=== PATIENT | male | born 1980 | race Caucasian/White ===

== ENCOUNTER 2016-12-30 02:41 | Inpatient (IN) | payer OTHER, MEDICARE ==
--- NOTE | 2016-12-30 02:51 | ER Document Report ---
ED Respiratory Problem - General Chief Complaint: Possible Overdose Stated Complaint: POSSIBLE OVERDOSE Time Seen by Provider: 12/30/16 02:45 Notes: The patient is a 36-year-old male, past medical history PTSD, anxiety, depression, presents by EMS after his friends found him unresponsive and not breathing. They he may have overdosed on something. They began CPR and EMS arrived. He received 2 mg intranasal Narcan with improvement in his mental status. During transport, his respiratory rate decreased from 12 down to 6 and he was given another 0.5 mg IV Narcan with improvement in his respiratory rate. On arrival to the emergency room, his pulse ox is 77% on room air, but the patient is wide awake and interactive. The only complaint is that he is thirsty. He is cooperative and said that he took an oxycodone earlier tonight. He denies any IV drug use, chest pain, nausea, vomiting, abdominal pain, back pain, bruise or leg swelling. Past Medical History - General Information source: Patient - Social History Smoking Status: Current Every Day Smoker Family History: Reviewed & Not Pertinent Review of Systems - Review of Systems Notes: REVIEW OF SYSTEMS: CONSTITUTIONAL: -fevers, -chills EENT: -eye pain, -difficulty swallowing, -nasal congestion CARDIOVASCULAR: -chest pain, -syncope. RESPIRATORY: -cough, +SOB GASTROINTESTINAL: -abdominal pain, - nausea, -vomiting, -diarrhea GENITOURINARY: -dysuria, -hematuria MUSCULOSKELETAL: -back pain, -neck pain SKIN: -rash or skin lesions. HEMATOLOGIC: -easy bruising or bleeding. LYMPHATIC: -swollen, enlarged glands. NEUROLOGICAL: -altered mental status or loss of consciousness, -headache, - neurologic symptoms PSYCHIATRIC: -anxiety, -depression. ALL OTHER SYSTEMS REVIEWED AND NEGATIVE. Physical Exam - Vital signs Vitals: Resp BP Pulse Ox 20 107/68 83 L 12/30/16 02:43 12/30/16 02:43 12/30/16 02:43 - Notes Notes: PHYSICAL EXAMINATION: GENERAL: In no acute distress. Mildly agitated. HEAD: Atraumatic, normocephalic. EYES: Pupils equal round and reactive to light, extraocular movements intact, sclera anicteric, conjunctiva are normal. ENT: nares patent, oropharynx clear without exudates. Moist mucous membranes. NECK: Normal range of motion, supple without lymphadenopathy LUNGS: B/L wheezing and rhonchi, RLL crackles, mildly tachypneic HEART: Tachycardic, regular rhythm ABDOMEN: Soft, nontender, normoactive bowel sounds. No guarding, no rebound. No masses appreciated. EXTREMITIES: Normal range of motion, no pitting or edema. No cyanosis. NEUROLOGICAL: Cranial nerves grossly intact. Normal speech. Normal sensory and motor exams. SKIN: Scarring over right antecubital fossa, possible track patrick. Course - Re-evaluation Re-evalutation: Patient's respiratory status improved after Narcan administered by EMS. On arrival to the ER, the patient is very hypoxic. Even on a nonrebreather with duonebs, patient's oxygen sat will not improve above 89% (no history of COPD). Pt vomiting in the ED, most likely from Narcan, so BiPap is not an option. Suspect flash pulmonary edema from Narcan administration or early aspiration pneumonia that has not developed on chest x-ray. No pneumothorax seen. Pt intubated for airway protection and for hypoxic respiratory failure, unresponsive to NRB. Will begin Clindamycin for aspiration pneumonia. 12/30/16 03:[address] Velásquez (Hospitalist) and he has accepted patient as Inpatient to ICU. - Vital Signs Vital signs: Temp Pulse Resp BP Pulse Ox 13 136/82 H 91 L 12/30/16 03:41 12/30/16 03:41 12/30/16 03:41 - Laboratory Result Diagrams: 12/30/16 02:45 12/30/16 02:45 Laboratory results interpreted by me: 12/30/16 12/30/16 12/30/16 02:45 02:45 02:45 WBC 11.0 H RDW 16.7 H Seg Neutrophils % 79.9 H Monocytes % 1.4 L Absolute Neutrophils 8.8 H Carbonic Acid 1.51 H ABG pH 7.27 L ABG pCO2 50.2 H ABG pO2 56.2 L ABG O2 Saturation 85.1 L Carbon Dioxide 20 L Glucose 221 H POC Glucose Lactic Acid Calcium 7.7 L AST 338 H ALT 137 H Creatine Kinase 449 H 12/30/16 12/30/16 02:47 03:06 WBC RDW Seg Neutrophils % Monocytes % Absolute Neutrophils Carbonic Acid ABG pH ABG pCO2 ABG pO2 ABG O2 Saturation Carbon Dioxide Glucose POC Glucose 184 H Lactic Acid 4.2 H Calcium AST ALT Creatine Kinase - Diagnostic Test Radiology reviewed: Image reviewed, Reports reviewed Radiology results interpreted by me: CXR: NAD Procedures - Intubation Orotracheal Time of Intubation: 03:49 Airway evaluation: Normal anatomy Mallampati Classification: Class 1 Medications: Etomidate, Other - Rocuronium Intubation method: Nasotracheal Blade type: Cyrus Blade size: 4 Equipment used: Glidescope ETT size: 8.0 ETT secured at: Teeth ETT secured at (cm): 24 Breath Sounds after Intubation: Equal End tidal CO2 confirmed: Yes Ventilator settings: AC Tidal volume: 500 FiO2: 100 Respirations: 14 PEEP: 8 Post Intubation Xray: Yes Intubation Complications: No complications Critical Care Note - Critical Care Note Total time excluding time spent on procedures (mins): 45 Discharge - Discharge Clinical Impression: Acute respiratory failure with hypoxia Narcotic overdose Qualifiers: Encounter type: initial encounter Injury intent: undetermined intent Qualified Code(s): T40.604A - Poisoning by unspecified narcotics, undetermined, initial encounter Condition: Serious Disposition: ADMITTED INPATIENT Admitting Provider: [facility] Admitted: ICU
[2016-12-30] MEDS ORDERED: IPRATROPIUM/ALBUTEROL 0.5-2.5 MG/3 ML AMPUL NEB ONE (02:52)
[2016-12-30 03:06] LABS: VENOUS BLOOD BASE EXCESS -3.8 mmol/L; VENOUS BLOOD HCO3 22.2 mmol/L (20-32); VENOUS BLOOD PCO2 43.5 mmHg (35-63); VENOUS BLOOD PH 7.33 (7.30-7.42)
[2016-12-30] MEDS ORDERED: ETOMIDATE INJ/PF 20 MG/10 ML SDV IV ONE ×2 (03:14→03:41)
[2016-12-30] MEDS ORDERED: PROPOFOL 100 ML IV ONE (03:15)
[2016-12-30 03:17] LABS: ABSOLUTE MONOCYTES (AUTO) 0.2 10^3/uL (0.1-1.4); ABSOLUTE NEUT (AUTO) 8.8 10^3/uL (1.7-8.2); BASOPHILS % (AUTO) 0.2 % (0-2); EOSINOPHILS % (AUTO) 0.3 % (0-6); HEMATOCRIT 47.5 % (37.9-51.0); HEMOGLOBIN 15.5 g/dL (13.5-17.0); LYMPHOCYTES % (AUTO) 18.2 % (13-45); MEAN CORPUSCULAR HGB CONC 32.6 g/dL (32.0-36.0); MEAN CORPUSCULAR VOLUME 86 fl (80-97); MONOCYTES % (AUTO) 1.4 % (3-13); RED BLOOD COUNT 5.51 10^6/uL (4.35-5.55); RED CELL DISTRIBUTION WIDTH 16.7 % (11.5-14.0); SEGMENTED NEUTROPHILS % (AUTO) 79.9 % (42-78)
[2016-12-30 03:19] LABS: ARTERIAL BLOOD BASE EXCESS -4.7 mmol/L; ARTERIAL BLOOD O2 SATURATION 85.1 % (94-98)
[2016-12-30 03:21] LABS: ALANINE AMINOTRANSFERASE 137 U/L (21-72); ALBUMIN 3.7 g/dL (3.5-5.0); ALKALINE PHOSPHATASE 116 U/L (38-126); ASPARTATE AMINO TRANSFERASE 338 U/L (17-59); BILIRUBIN,DIRECT 0.4 mg/dL (0.0-0.4); BILIRUBIN,TOTAL 0.5 mg/dL (0.2-1.3); BLOOD UREA NITROGEN 14 mg/dL (7-20); CALCIUM 7.7 mg/dL (8.4-10.2); CREATINE KINASE 449 U/L (55-170); GLUCOSE 221 mg/dL (75-110); POTASSIUM 3.8 mmol/L (3.6-5.0); TOTAL PROTEIN 6.4 g/dL (6.3-8.2)
[2016-12-30 03:29] LABS: ANION GAP 19 (5-19); CARBON DIOXIDE 20 mmol/L (22-30); CHLORIDE 105 mmol/L (98-107); SODIUM 144.3 mmol/L (137-145)
[2016-12-30] MEDS ORDERED: NORMAL SALINE 1000 ML 1,000 ML IV ONE ×3 (03:40→09:07)
[2016-12-30] MEDS ORDERED: ROCURONIUM BROMIDE INJ 50 MG/5 ML VIAL IV ONE ×2 (03:41→20:16)
[2016-12-30] MEDS ORDERED: PROPOFOL 100 ML IV PRN ×2 (03:41→17:04)
--- NOTE | 2016-12-30 03:53 | RADIOLOGY REPORT (SQ) ---
EXAM DESCRIPTION: CHEST SINGLE VIEW COMPLETED DATE/TIME: 12/30/2016 3:29 am REASON FOR STUDY: hypoxia, SOB COMPARISON: None. EXAM PARAMETERS: NUMBER OF VIEWS: One view. TECHNIQUE: Single frontal radiographic view of the chest acquired. RADIATION DOSE: NA LIMITATIONS: None. FINDINGS: LUNGS AND PLEURA: No opacities, masses or pneumothorax. No pleural effusion. MEDIASTINUM AND HILAR STRUCTURES: No masses. Contour normal. HEART AND VASCULAR STRUCTURES: Heart normal in size. Normal vasculature. BONES: No acute findings. HARDWARE: None in the chest. OTHER: No other significant finding. IMPRESSION: NO ACUTE RADIOGRAPHIC FINDING IN THE CHEST. TECHNICAL DOCUMENTATION: JOB ID: [id number]
[2016-12-30] MEDS ORDERED: CLINDAMYCIN 600 MG/D5W RTU 50 ML IV ONE (03:56)
[2016-12-30 03:57] LABS: ADD ON TESTING BLD IN LAB ACKNOWLEDGE
[2016-12-30] MEDS ORDERED: FENTANYL CITRATE INJ/PF 100 MCG/2 ML AMPUL IV PRN ×2 (04:01→07:09)
[2016-12-30] MEDS ORDERED: IPRATROPIUM/ALBUTEROL 0.5-2.5 MG/3 ML AMPUL NEB PRN (04:01)
[2016-12-30] MEDS ORDERED: ONDANSETRON HCL INJ/PF 4 MG/2 ML SDV IV PRN (04:01)
[2016-12-30 04:19] LABS: ALCOHOL 267 mg/dL (NONE DETECTED)
--- NOTE | 2016-12-30 04:35 | RADIOLOGY REPORT (SQ) ---
EXAM DESCRIPTION: CHEST SINGLE VIEW COMPLETED DATE/TIME: 12/30/2016 4:15 am REASON FOR STUDY: intubated COMPARISON: 12/30/2016. EXAM PARAMETERS: NUMBER OF VIEWS: One view. TECHNIQUE: Single frontal radiographic view of the chest acquired. RADIATION DOSE: NA LIMITATIONS: As below. FINDINGS: LUNGS AND PLEURA: New large opacification of the right mid and lower lung field compared w ith exam from 40 minutes ago. Deep left costophrenic sulcus partially clipped. MEDIASTINUM AND HILAR STRUCTURES: No masses. Contour normal. HEART AND VASCULAR STRUCTURES: Heart normal in size. Normal vasculature. BONES: No acute findings. HARDWARE: Adequate appearing endotracheal tube tip is 4.7 cm from the will. NG tube tip is likely adequate partially imaged, obscured over the left upper abdominal quadrant -stomach. OTHER: No other significant finding. IMPRESSION: Large airspace opacification of the right mid-lower lung field new compared with exam fr om 40 minutes ago. Differential diagnosis includes pulmonary edema, and pulmonary hemorrhage. COMMENT: This report was called to Dr. Devorah Trent at04:25 on 12/30/2016. TECHNICAL DOCUMENTATION: JOB ID: [id number]
--- NOTE | 2016-12-30 04:40 | PDOC H&P ---
History of Present Illness Patient complains of: Altered mental status History of Present Illness: CYRUS EPPERSON is a 36 year old male whose history is obtained by the medical record and ER personnel the patient is intubated and nonresponsive. History includes PTSD, anxiety depression. Patient was discovered by his friends unresponsive and not breathing for an unclear duration CPR was initiated and EMS was called. At the scene he was spontaneous breathing and pulse though suspected to have overdosed on a narcotic receiving Narcan 2 mg intranasally with improvement of mental status. During transport he had a reduction in his respiratory rate to 6 and received another dose of Narcan IV. Emergency room is found to have a pulse oximetry of 77% on room air at which time he began to vomit aspiration followed by acute respiratory failure he was intubated. Lab results pending is referred to the hospitalist for ICU admission. There is no family or friends available for additional history. NG tube aspirate dark concerning for blood Past Medical History Psychiatric Medical History: Reports: Depression, General Anxiety Disorder, Post Traumatic Stress Disorder Social History Information Source: Emergency Med Personnel, [facility] Records Smoking Status: Current Every Day Smoker Family History Family History: Reviewed & Not Pertinent, Other - Obtainable Parental Family History Reviewed: Yes - Unobtainable Children Family History Reviewed: Yes - Unobtainable Sibling(s) Family History Reviewed.: Yes - Unobtainable Review of Systems ROS unobtainable: Due to mental status - Intubated and sedated Physical Exam Vital Signs: Temp Pulse Resp BP Pulse Ox 13 136/82 H 96 12/30/16 03:41 12/30/16 03:41 12/30/16 04:01 General appearance: PRESENT: no acute distress - Intubated and sedated appearing comfortable with current vent settings, other - NG aspiration of dark material concerning for blood Head exam: PRESENT: atraumatic, normocephalic Eye exam: PRESENT: conjunctiva pink, EOMI, PERRLA, other - Pupils 2 mm symmetric and poorly reactive. ABSENT: scleral icterus Ear exam: PRESENT: normal external ear exam Mouth exam: PRESENT: moist, tongue midline Neck exam: ABSENT: carotid bruit, JVD, lymphadenopathy, thyromegaly Respiratory exam: PRESENT: clear to auscultation mary ann. ABSENT: rales, rhonchi, wheezes Cardiovascular exam: PRESENT: RRR. ABSENT: diastolic murmur, rubs, systolic murmur Pulses: PRESENT: normal dorsalis pedis pul Vascular exam: PRESENT: normal capillary refill GI/Abdominal exam: PRESENT: normal bowel sounds, soft. ABSENT: distended, guarding, mass, organolmegaly, rebound, tenderness Rectal exam: PRESENT: deferred Extremities exam: PRESENT: full ROM. ABSENT: calf tenderness, clubbing, pedal edema Neurological exam: PRESENT: alert - Sedated and intubated Skin exam: PRESENT: dry, intact, warm. ABSENT: cyanosis, rash Results Laboratory Results: 12/30/16 02:45 12/30/16 02:45 12/30/16 12/30/16 12/30/16 02:45 02:45 02:45 WBC 11.0 H RBC 5.51 Hgb 15.5 Hct 47.5 MCV 86 MCH 28.0 MCHC 32.6 RDW 16.7 H Plt Count 231 Seg Neutrophils % 79.9 H Lymphocytes % 18.2 Monocytes % 1.4 L Eosinophils % 0.3 Basophils % 0.2 Absolute Neutrophils 8.8 H Absolute Lymphocytes 2.0 Absolute Monocytes 0.2 Absolute Eosinophils 0.0 Absolute Basophils 0.0 Carbonic Acid HCO3/H2CO3 Ratio ABG pH ABG pCO2 ABG pO2 ABG HCO3 ABG O2 Saturation ABG Base Excess VBG pH 7.33 VBG pCO2 43.5 VBG HCO3 22.2 VBG Base Excess -3.8 FiO2 Sodium 144.3 Potassium 3.8 Chloride 105 Carbon Dioxide 20 L Anion Gap 19 BUN 14 Creatinine 1.00 Est GFR ( Amer) > 60 Est GFR (Non-Af Amer) > 60 Glucose 221 H Lactic Acid Calcium 7.7 L Total Bilirubin 0.5 AST 338 H ALT 137 H Alkaline Phosphatase 116 Total Protein 6.4 Albumin 3.7 Lipase 241.0 12/30/16 12/30/16 02:45 03:06 WBC RBC Hgb Hct MCV MCH MCHC RDW Plt Count Seg Neutrophils % Lymphocytes % Monocytes % Eosinophils % Basophils % Absolute Neutrophils Absolute Lymphocytes Absolute Monocytes Absolute Eosinophils Absolute Basophils Carbonic Acid 1.51 H HCO3/H2CO3 Ratio 14:1 ABG pH 7.27 L ABG pCO2 50.2 H ABG pO2 56.2 L ABG HCO3 22.6 ABG O2 Saturation 85.1 L ABG Base Excess -4.7 VBG pH VBG pCO2 VBG HCO3 VBG Base Excess FiO2 6 LITERS Sodium Potassium Chloride Carbon Dioxide Anion Gap BUN Creatinine Est GFR ( Amer) Est GFR (Non-Af Amer) Glucose Lactic Acid 4.2 H Calcium Total Bilirubin AST ALT Alkaline Phosphatase Total Protein Albumin Lipase 12/30/16 12/30/16 02:45 02:45 Creatine Kinase 449 H Troponin I < 0.012 Assessment & Plan - Diagnosis (1) Acute respiratory failure with hypoxia Is this a current diagnosis for this admission?: YesPlan: Multifactorial secondary to pulmonary edema from opiate overdose and and, aspiration pneumonia. Continue ventilator support. Reevaluate with ABG and chemistry. Consider diuresis. Empiric antibiotics initiated. Reevaluate chest x-ray for large volume aspiration and possible atelectasis. (2) Aspiration pneumonia Is this a current diagnosis for this admission?: YesPlan: Please see #1 (3) Gastritis with hemorrhage Plan: Suspected given color of NG aspirate. Protonix 80 mg bolus ordered followed by 72 hours reevaluate CBC and PT/INR (4) Narcotic overdose Qualifiers: Encounter type: initial encounter Injury intent: undetermined intent Qualified Code(s): T40.604A - Poisoning by unspecified narcotics, undetermined, initial encounter Is this a current diagnosis for this admission?: YesPlan: IV Narcan as needed, IVC papers filed with mental health follow-up. - Time Time Spent: 50 to 70 Minutes - Inpatient Certification Medical Necessity: Need Close Monitoring Due to Risk of Patient Decompensation
[2016-12-30] MEDS ORDERED: POTASSI CL 20 MEQ/1/2NS 1L 20 MEQ/1,000 ML RTUINJ IV PRN (04:45)
[2016-12-30 04:56] LABS: PROTHROMBIN TIME 13.8 SEC (11.4-15.4)
[2016-12-30] MEDS ORDERED: CALCIUM GLUCONATE 1,000 MG in DEXTROSE 5%-WATER 50 ML IV ONE (05:30)
[2016-12-30] MEDS ORDERED: CALCIUM GLUCONATE 1000 MG/10 ML INJ IV PRN (05:30)
[2016-12-30] MEDS ORDERED: NORMAL SALINE 100 ML with PANTOPRAZOLE SODIUM 80 MG IV PRN ×2 (05:44)
[2016-12-30 05:50] LABS: ARTERIAL BLOOD BASE EXCESS -3.4 mmol/L; ARTERIAL BLOOD O2 SATURATION 99.4 % (94-98)
[2016-12-30 05:51] LABS: URINE BARBITURATES SCREEN NEGATIVE; URINE METHADONE SCREEN NEGATIVE; URINE OPIATES LOW UNCONFIRMED POSITIVE; URINE PHENCYCLIDINE SCREEN NEGATIVE
[2016-12-30] MEDS ORDERED: PANTOPRAZOLE SODIUM 40 MG VIAL IV PRN ×2 (06:00)
[2016-12-30] MEDS ORDERED: HEPARIN SOD (PORCINE) 5,000 UNIT/ML 1 ML SYRINGE SUBCUT SCH (06:00)
[2016-12-30] MEDS ORDERED: PANTOPRAZOLE SODIUM 80 MG in NORMAL SALINE 100 ML IV ONE (06:00)
[2016-12-30] MEDS: PROPOFOL 100 ML IV PRN ×5 (07:00→23:31)
--- NOTE | 2016-12-30 08:02 | RADIOLOGY REPORT (SQ) ---
EXAM DESCRIPTION: CHEST SINGLE VIEW COMPLETED DATE/TIME: 12/30/2016 7:39 am REASON FOR STUDY: intubated w aspiration and edema? COMPARISON: 3.3 hours prior. EXAM PARAMETERS: NUMBER OF VIEWS: One view. TECHNIQUE: Single frontal radiographic view of the chest acquired. RADIATION DOSE: NA LIMITATIONS: None. FINDINGS: LUNGS AND PLEURA: Moderate mixed interstitial and airspace opacity with right lower hemith oracic predominance consistent with asymmetric pulmonary edema, somewhat improved compared with exam from 3.3 hours prior. Moderate lung volume. MEDIASTINUM AND HILAR STRUCTURES: No masses. Contour normal. HEART AND VASCULAR STRUCTURES: Heart normal in size. Normal vasculature. BONES: No acute findings. HARDWARE: Adequate appearing endotracheal and nasogastric tubes. OTHER: No other significant finding. IMPRESSION: Moderate pulmonary edema pattern, right more than left improved. Lines and tubes. TECHNICAL DOCUMENTATION: JOB ID: [id number]
[2016-12-30] MEDS: IPRATROPIUM/ALBUTEROL 0.5-2.5 MG/3 ML AMPUL NEB SCH ×3 (08:38→20:14)
[2016-12-30] MEDS ORDERED: LEVALBUTEROL HCL NEB 1.25 MG/3 ML AMPUL NEB PRN (08:46)
[2016-12-30] MEDS: PIPERACILLIN SODIUM/TAZOBACTAM 4.5 GM in NORMAL SALINE 100 ML IV SCH ×3 (08:54→20:11)
[2016-12-30 09:01] LABS: ARTERIAL BLOOD BASE EXCESS -4.1 mmol/L; ARTERIAL BLOOD O2 SATURATION 96.6 % (94-98)
[2016-12-30 09:19] LABS: ALANINE AMINOTRANSFERASE 114 U/L (21-72); ALBUMIN 3.2 g/dL (3.5-5.0); ALKALINE PHOSPHATASE 99 U/L (38-126); ANION GAP 15 (5-19); ASPARTATE AMINO TRANSFERASE 378 U/L (17-59); BILIRUBIN,DIRECT 0.3 mg/dL (0.0-0.4); BILIRUBIN,TOTAL 0.5 mg/dL (0.2-1.3); BLOOD UREA NITROGEN 16 mg/dL (7-20); CALCIUM 7.3 mg/dL (8.4-10.2); CARBON DIOXIDE 23 mmol/L (22-30); CHLORIDE 107 mmol/L (98-107); CREATININE RESULT 0.96 mg/dL (0.52-1.25); GLUCOSE 88 mg/dL (75-110); MAGNESIUM 1.5 mg/dL (1.6-2.3); POTASSIUM 4.6 mmol/L (3.6-5.0); TOTAL PROTEIN 5.8 g/dL (6.3-8.2)
[2016-12-30] MEDS ORDERED: DEXTROSE 50%-WATER 25 GM/50 ML DISP.SYRIN IV PRN ×2 (09:19)
[2016-12-30] MEDS ORDERED: DEXTROSE 40% GEL 15 GM TUBE PO PRN ×2 (09:19)
[2016-12-30] MEDS ORDERED: INSULIN LISPRO 100 UNIT/ML 3 ML VIAL SUBCUT PRN (09:19)
[2016-12-30] MEDS ORDERED: GLUCAGON,HUMAN RECOMB 1 MG INJ IM PRN (09:19)
[2016-12-30 09:22] LABS: CREATINE KINASE MB 4.09 ng/mL (<4.55)
[2016-12-30 09:24] LABS: TROPONIN I < 0.012 ng/mL
[2016-12-30] MEDS ORDERED: ACETYLCYSTEINE 20% SOLN 800 MG/4 ML VIAL.NEB NEB PRN (09:30)
--- NOTE | 2016-12-30 09:37 | EKG REPORT ---
SEVERITY:- OTHERWISE NORMAL ECG - SINUS TACHYCARDIA LEFT AXIS DEVIATION : Confirmed by: Blade Goel 30-Dec-2016 09:36:08
--- NOTE | 2016-12-30 09:38 | PDOC PROGRESS REPORT ---
Subjective Progress Note for:: 12/30/16 Subjective:: Unable to obtain review of systems secondary to intubated and sedated status Physical Exam Vital Signs: Temp Pulse Resp BP Pulse Ox 96.4 F L 98 14 117/89 H 94 12/30/16 07:42 12/30/16 07:00 12/30/16 07:42 12/30/16 07:42 12/30/16 07:42 Intake & Output 12/29/16 12/30/16 12/31/16 06:59 06:59 06:59 Output Total 450 Balance -450 Weight 80.8 kg Exam: GENERAL: intubated, sedated, NAD HEENT: Conjunctiva clear, nonicteric, moist mucous membranes, no JVD, midline trachea RESPIRATORY: rhonchi bilaterally CARDIAC: Regular rate and rhythm, no murmurs/gallops/rubs ABDOMEN: Soft, nondistended, absent bowel sounds, no rigidity EXTREMETIES: No cyanosis, clubbing, edema NEUROLOGIC: unable to assess SKIN: No rashes or lesions Results Laboratory Results: 12/30/16 12/30/16 12/30/16 05:40 06:45 08:45 Carbonic Acid 1.92 H 1.44 H HCO3/H2CO3 Ratio 13:1 15:1 ABG pH 7.23 L 7.30 L ABG pCO2 63.9 H 47.7 H ABG pO2 239.9 H 96.7 ABG HCO3 25.9 22.7 ABG O2 Saturation 99.4 H 96.6 ABG Base Excess -3.4 -4.1 FiO2 100% 50% Lactic Acid 3.2 H 12/30/16 12/30/16 06:48 06:48 Creatine Kinase 449 H CK-MB (CK-2) Cancelled Troponin I Cancelled Impressions: Chest X-Ray 12/30/16 03:41 IMPRESSION: Large airspace opacification of the right mid-lower lung field new compared with exam from 40 minutes ago. Differential diagnosis includes pulmonary edema, and pulmonary hemorrhage. Assessment & Plan - Diagnosis (1) Acute respiratory failure with hypoxia Is this a current diagnosis for this admission?: YesPlan: Consult pulmonary medicine for ventilator management. Feel patient's FiO2 requirements may be less if he were to have bronchoscopy patient apparently vomited significantly in the emergency department requiring immediate intubation. (2) Aspiration pneumonia Qualifiers: Laterality: right Lung location: lower lobe of lung Is this a current diagnosis for this admission?: YesPlan: Significant aspiration pneumonia secondary to vomitus. Place patient on Zosyn and obtain a sputum specimen. Patient may benefit from bronchoscopy and will consult pulmonary medicine for this. Chest physiotherapy, Mucinex, and scheduled nebulized treatments. As needed Xopenex. (3) Narcotic overdose Qualifiers: Encounter type: initial encounter Injury intent: undetermined intent Qualified Code(s): T40.604A - Poisoning by unspecified narcotics, undetermined, initial encounter Is this a current diagnosis for this admission?: YesPlan: Continue supportive care. Patient received CPR. Will follow cardiac enzymes and EKG. (4) Alcohol intoxication Qualifiers: Complication of substance-induced condition: with unspecified complication Qualified Code(s): F10.929 - Alcohol use, unspecified with intoxication , unspecified Is this a current diagnosis for this admission?: YesPlan: Patient on Versed drip. Continue supportive care (5) Alcohol abuse Is this a current diagnosis for this admission?: YesPlan: Place patient on thiamine, folic acid, and multivitamin. Ativan as needed withdrawal. Patient is on Versed drip for sedation. (6) Gastritis with hemorrhage Qualifiers: Gastritis type: alcoholic Chronicity: acute Qualified Code(s): K29.21 - Alcoholic gastritis with bleeding Is this a current diagnosis for this admission?: YesPlan: With an dark and bloody contents through NG. Place patient on Protonix and Carafate and consider also octreotide. Consult GI and if unavailable will consult surgery for endoscopy. type and Screen and monitor CBC every 6. (7) Metabolic acidosis Is this a current diagnosis for this admission?: YesPlan: Secondary to lactic acidosis and respiratory acidosis 2/2 overdose and subsequent CPR. (8) Blood glucose elevated Is this a current diagnosis for this admission?: YesPlan: Patient on Accu-Cheks every 6 and sliding scale insulin. Check hemoglobin A1c. - Time Time Spent with patient: 45 minutes spent with patient. Critical Time spent with patient: 35 or more minutes
[2016-12-30] MEDS: LORAZEPAM INJ 2 MG/1 ML VIAL IV PRN ×4 (09:59→22:33)
[2016-12-30] MEDS ORDERED: DOCUSATE SODIUM 100 MG/10 ML UDC NG SCH (10:00)
[2016-12-30 10:07] LABS: HEMATOCRIT 44.4 % (37.9-51.0); HEMOGLOBIN 14.5 g/dL (13.5-17.0); HGB HCT DIFFERENCE -0.9; MEAN CORPUSCULAR HEMOGLOBIN 28.6 pg (27.0-33.4); MEAN CORPUSCULAR HGB CONC 32.7 g/dL (32.0-36.0); MEAN CORPUSCULAR VOLUME 87 fl (80-97); RED BLOOD COUNT 5.09 10^6/uL (4.35-5.55); RED CELL DISTRIBUTION WIDTH 16.4 % (11.5-14.0); WHITE BLOOD COUNT 7.4 10^3/uL (4.0-10.5)
[2016-12-30] MEDS: MIDAZOLAM HCL 100 ML IV PRN ×2 (10:23→16:08)
[2016-12-30] MEDS: THIAMINE HCL 100 MG, FOLIC ACID 1 MG in NORMAL SALINE 50 ML IV SCH (10:24)
[2016-12-30] MEDS: LACTULOSE SYRUP 20 GM/30 ML UDCUP NG SCH ×2 (10:32→14:36)
[2016-12-30] MEDS: NORMAL SALINE 100 ML with PANTOPRAZOLE SODIUM 80 MG IV PRN ×4 (10:33→18:39)
[2016-12-30 10:44] LABS: BAND NEUTROPHILS % (MANUAL) 4 % (3-5); BASOPHILS % (MANUAL) 0 % (0-2); EOSINOPHILS % (MANUAL) 0 % (0-6); LYMPHOCYTES % (MANUAL) 8 % (13-45); TOTAL CELLS COUNTED 100
[2016-12-30 10:45] LABS: PLATELET CLUMPS PRESENT; TOXIC GRANULATION SLIGHT; TOXIC VACUOLATION PRESENT
[2016-12-30 10:46] LABS: ANISOCYTOSIS 1+; POLYCHROMASIA SLIGHT
[2016-12-30] MEDS ORDERED: ACETAMINOPHEN 650 MG SUPP.RECT PR PRN (10:55)
--- NOTE | 2016-12-30 11:38 | PDOC CONSULTATION ---
Consultation Consult Date: 12/30/16 Attending physician:: KELLY NAIR History of Present Illness Admission Date/PCP: 12/30/16 04:01 History of Present Illness: CYRUS EPPERSON is a 36 year old male whose history is obtained by the medical record and ER personnel the patient is intubated and nonresponsive. History includes PTSD, anxiety depression. Patient was discovered by his friends unresponsive and not breathing for an unclear duration CPR was initiated and EMS was called. At the scene he was spontaneous breathing and pulse though suspected to have overdosed on a narcotic receiving Narcan 2 mg intranasally with improvement of mental status. During transport he had a reduction in his respiratory rate to 6 and received another dose of Narcan IV. Emergency room is found to have a pulse oximetry of 77% on room air at which time he began to vomit aspiration followed by acute respiratory failure he was intubated. Lab results pending is referred to the hospitalist for ICU admission. There is no family or friends available for additional history. NG tube aspirate dark concerning for blood.; At this time aspirate attempts from the endotracheal tube are nonproductive,Chest x-ray shows right lower lobe infiltrate Past Medical History Psychiatric Medical History: Reports: Depression, General Anxiety Disorder, Post Traumatic Stress Disorder Social History Smoking Status: Current Every Day Smoker Frequency of Alcohol Use: Heavy Hx Recreational Drug Use: Yes Drugs: None, Other Hx Prescription Drug Abuse: Yes Family History Family History: Reviewed & Not Pertinent, Other - Obtainable Parental Family History Reviewed: No Children Family History Reviewed: No Sibling(s) Family History Reviewed.: No Medication/Allergy Home Medications: Unobtainable [Unobtainable] 12/30/16 Allergies/Adverse Reactions: No Known Allergies Allergy (Unverified 12/30/16 05:11) Review of Systems ROS unobtainable: Due to endotracheal tube Physical Exam Vital Signs: Temp Pulse Resp BP Pulse Ox 96.4 F L 98 14 117/89 H 94 12/30/16 07:42 12/30/16 07:00 12/30/16 07:42 12/30/16 07:42 12/30/16 07:42 Intake & Output 12/29/16 12/30/16 12/31/16 06:59 06:59 06:59 Output Total 450 Balance -450 Weight 80.8 kg General appearance: PRESENT: no acute distress, disheveled, obese, well- developed Head exam: PRESENT: atraumatic, normocephalic Eye exam: PRESENT: conjunctiva pale Mouth exam: PRESENT: dry mucosa, neck supple, other - Endotracheal tube in place Neck exam: ABSENT: carotid bruit, JVD, lymphadenopathy, thyromegaly Respiratory exam: PRESENT: decreased breath sounds, prolonged expiratory phas, rales, rhonchi - Right lateral and posterior chest lozoya Cardiovascular exam: PRESENT: RRR, +S1, +S2 Pulses: PRESENT: normal radial pulses GI/Abdominal exam: PRESENT: normal bowel sounds, soft. ABSENT: distended, guarding, mass, organolmegaly, rebound, tenderness Rectal exam: PRESENT: deferred Gentrourinary exam: PRESENT: indwelling catheter Musculoskeletal exam: PRESENT: normal inspection Skin exam: PRESENT: dry, warm Results Laboratory Results: 12/30/16 12/30/16 12/30/16 05:40 06:45 08:45 Carbonic Acid 1.92 H 1.44 H HCO3/H2CO3 Ratio 13:1 15:1 ABG pH 7.23 L 7.30 L ABG pCO2 63.9 H 47.7 H ABG pO2 239.9 H 96.7 ABG HCO3 25.9 22.7 ABG O2 Saturation 99.4 H 96.6 ABG Base Excess -3.4 -4.1 FiO2 100% 50% Lactic Acid 3.2 H 12/30/16 12/30/16 06:48 06:48 Creatine Kinase 449 H CK-MB (CK-2) Cancelled Troponin I Cancelled Impressions: Chest X-Ray 12/30/16 03:41 IMPRESSION: Large airspace opacification of the right mid-lower lung field new compared with exam from 40 minutes ago. Differential diagnosis includes pulmonary edema, and pulmonary hemorrhage. Assessment & Plan - Diagnosis (1) Acute respiratory failure with hypoxia Is this a current diagnosis for this admission?: Yes (2) Alcohol abuse Is this a current diagnosis for this admission?: Yes (3) Aspiration pneumonia Qualifiers: Laterality: right Lung location: lower lobe of lung Is this a current diagnosis for this admission?: Yes (4) Gastritis with hemorrhage Qualifiers: Gastritis type: alcoholic Chronicity: acute Qualified Code(s): K29.21 - Alcoholic gastritis with bleeding Is this a current diagnosis for this admission?: Yes (5) Narcotic overdose Qualifiers: Encounter type: initial encounter Injury intent: undetermined intent Qualified Code(s): T40.604A - Poisoning by unspecified narcotics, undetermined, initial encounter Is this a current diagnosis for this admission?: Yes
[2016-12-30] MEDS ORDERED: VASOPRESSIN INJ 20 UNIT/1 ML VIAL ONE (12:37)
[2016-12-30] MEDS ORDERED: DEXTROSE 5%-WATER 250 ML with VASOPRESSIN 100 UNIT IV PRN ×2 (13:00)
[2016-12-30] MEDS ORDERED: ONDANSETRON HCL INJ/PF 4 MG/2 ML SDV ONE (13:11)
[2016-12-30] MEDS ORDERED: MIDAZOLAM 2 MG/2 ML INJ ONE ×2 (13:12→13:13)
[2016-12-30] MEDS ORDERED: NALOXONE HCL INJ/PF 0.4 MG/1 ML SDV ONE (13:12)
[2016-12-30] MEDS ORDERED: FLUMAZENIL INJ 0.5 MG/5 ML VIAL IV ONE (13:13)
[2016-12-30] MEDS ORDERED: FENTANYL CITRATE INJ/PF 100 MCG/2 ML AMPUL ONE (13:13)
[2016-12-30] MEDS ORDERED: EPINEPHRINE INJ 1 MG/10 ML DISP.SYRIN ONE (13:13)
[2016-12-30] MEDS ORDERED: GLUCAGON,HUMAN RECOMB 1 MG INJ ONE (13:13)
--- NOTE | 2016-12-30 13:41 | RADIOLOGY REPORT (SQ) ---
EXAM DESCRIPTION: CHEST SINGLE VIEW COMPLETED DATE/TIME: 12/30/2016 1:28 pm REASON FOR STUDY: CENTRAL LINE PLACEMENT COMPARISON: 12/30/2016 EXAM PARAMETERS: NUMBER OF VIEWS: One view. TECHNIQUE: Single frontal radiographic view of the chest acquired. RADIATION DOSE: NA LIMITATIONS: None. FINDINGS: LUNGS AND PLEURA: The previously described moderate mixed interstitial and airspace opacit y in the right lower hemithorax appears improved with decreasing confluence. Residual changes are id entified. No pneumothorax is seen. MEDIASTINUM AND HILAR STRUCTURES: No masses. Contour normal. HEART AND VASCULAR STRUCTURES: The configuration of the heart and mediastinal structures is unchanged . BONES: No acute findings. HARDWARE: Right-sided central line is now identified with its tip at the level of the inferior right atrium. Endotracheal tube is unchanged in position. NG tube is again seen in course to the abdomen. OTHER: No other significant finding. IMPRESSION: Central line with its tip projected at the level of the inferior right atrium. No pneum othorax is seen. Interval improvement in the mixed interstitial and airspace opacity in the right lo wer hemithorax. Other findings as noted above TECHNICAL DOCUMENTATION: JOB ID: [id number]
[2016-12-30] MEDS ORDERED: DIAZEPAM 5 MG TABLET PO SCH (14:00)
[2016-12-30] MEDS: SUCRALFATE SUSP 1 GM/10 ML UDCUP NG SCH (14:36)
[2016-12-30] MEDS: NORMAL SALINE 500 ML with OCTREOTIDE ACETATE 500 MCG IV PRN ×4 (14:54→18:39)
--- NOTE | 2016-12-30 15:26 | Operative Report ---
Operative Report DATE OF SURGERY: 12/30/16 PREOPERATIVE DIAGNOSIS: 1. Shock. 2. Upper GI bleed POSTOPERATIVE DIAGNOSIS: Same with distal erosive esophagitis; mild gastritis OPERATION: 1. Right subclavian central venous access catheter, triple-lumen. 2. Esophagogastroduodenoscopy with biopsies of the mid to distal esophagus and gastric antrum SURGEON: MARIO NICOLE ANESTHESIA: Local TISSUE REMOVED OR ALTERED: Mucosal biopsies as described below COMPLICATIONS: None ESTIMATED BLOOD LOSS: Scant INTRAOPERATIVE FINDINGS: See below PROCEDURE: The first operation performed at bedside with central venous access catheter placement. Because the patient is intubated and sedated, informed consent was provided by the patient's father. The right subclavian area was prepped and draped in sterile fashion. Surgical timeout conducted. Skin was anesthetized 1% plain lidocaine, and using Seldinger technique, a triple-lumen central venous access catheter was threaded into the right subclavian vein without difficulty. There was excellent blood flow through all 3 lm. Catheter is flushed with saline solution secured to the skin with 2 silk suture Biopatch and sterile dressing. Portable upright chest x-ray showed no evidence of pneumothorax, no kinking of the catheter, the tip of the catheter in the right atrium. The results of the x-ray where she had with the nursing staff. Staff was instructed to use the catheter. Approximately 1 hour later we had the endoscopy team in the room. We proceeded with EGD. Again informed consent was provided by the patient's father via telephone. Despite the patient being on propofol, receiving additional morphine and Versed , the patient required paralysis. Approximately 10 mg of Norcuron E and was given intravenously. Oral mouthpiece was inserted, nasogastric tube removed. Patient remained on the ventilator secured during this time. The flexible pediatric upper endoscope was advanced through the hypopharynx, down the esophagus into the stomach and then into the duodenum. There was no evidence of bleeding, clot in the duodenum. The stomach had mild gastritis. There was minimal gastric contents in the lesser curvature. We did obtain one mucosal biopsy of the antrum for ALEXA testing. Again only mild findings in the stomach. The GE junction was approximately 38 cm from the incisor. There was no significant hiatal hernia. The findings in the esophagus were significant for diffuse circumferential erosive esophagitis. Multiple photos were taken and a partial thickness mucosal biopsy obtained at approximately 22 cm from incisor. There was no apparent esophageal varix, tumor mass or active bleeding. The esophagus from the esophageal sphincter to approximately 20 cm distal was without pathology. Again upper esophagus essentially normal. Scope was withdrawn to the patient's oropharynx. Tolerated procedure well.
[2016-12-30 15:36] LABS: CREATINE KINASE MB 3.39 ng/mL (<4.55); TROPONIN I 0.014 ng/mL
[2016-12-30 16:19] LABS: HEMATOCRIT 38.2 % (37.9-51.0); HEMOGLOBIN 12.5 g/dL (13.5-17.0); HGB HCT DIFFERENCE -0.7; MEAN CORPUSCULAR HEMOGLOBIN 28.4 pg (27.0-33.4); MEAN CORPUSCULAR HGB CONC 32.8 g/dL (32.0-36.0); MEAN CORPUSCULAR VOLUME 87 fl (80-97); RED BLOOD COUNT 4.42 10^6/uL (4.35-5.55); RED CELL DISTRIBUTION WIDTH 16.5 % (11.5-14.0); WHITE BLOOD COUNT 8.8 10^3/uL (4.0-10.5)
[2016-12-30] MEDS: NORMAL SALINE 1000 ML 1,000 ML IV PRN ×2 (17:17→23:32)
[2016-12-30] MEDS ORDERED: DEXTROSE 5%-WATER 250 ML with NOREPINEPHRINE BITARTRATE 4 MG IV PRN ×2 (18:21)
[2016-12-30] MEDS ORDERED: NOREPINEPHRINE BITARTRATE INJ/PF 4 MG/4 ML SDV IV ONE ×2 (18:28→18:35)
[2016-12-30] MEDS: ALBUMIN HUMAN 50 ML IV SCH ×4 (19:37→22:11)
[2016-12-30] MEDS: MAGNESIUM SULFATE/D5W 1 GM/100 ML RTUPB IV SCH ×3 (20:11→22:10)
[2016-12-30] MEDS: ACETYLCYSTEINE 20% SOLN 800 MG/4 ML VIAL.NEB NEB SCH (20:14)
[2016-12-30 21:29] LABS: HEMATOCRIT 36.6 % (37.9-51.0); HEMOGLOBIN 11.8 g/dL (13.5-17.0); HGB HCT DIFFERENCE -1.2; MEAN CORPUSCULAR HEMOGLOBIN 28.2 pg (27.0-33.4); MEAN CORPUSCULAR HGB CONC 32.3 g/dL (32.0-36.0); MEAN CORPUSCULAR VOLUME 87 fl (80-97); RED BLOOD COUNT 4.19 10^6/uL (4.35-5.55); RED CELL DISTRIBUTION WIDTH 17.2 % (11.5-14.0); WHITE BLOOD COUNT 13.7 10^3/uL (4.0-10.5)
[2016-12-30 21:47] LABS: CREATINE KINASE MB 3.39 ng/mL (<4.55)
[2016-12-30 21:48] LABS: TROPONIN I < 0.012 ng/mL
[2016-12-31] MEDS: PIPERACILLIN SODIUM/TAZOBACTAM 4.5 GM in NORMAL SALINE 100 ML IV SCH ×4 (02:17→20:24)
[2016-12-31] MEDS: MIDAZOLAM HCL 100 ML IV PRN ×4 (02:17→21:01)
[2016-12-31] MEDS: PROPOFOL 100 ML IV PRN ×8 (02:18→23:17)
[2016-12-31] MEDS: IPRATROPIUM/ALBUTEROL 0.5-2.5 MG/3 ML AMPUL NEB SCH ×4 (02:21→20:24)
[2016-12-31] MEDS: NORMAL SALINE 100 ML with PANTOPRAZOLE SODIUM 80 MG IV PRN ×2 (03:02)
[2016-12-31] MEDS: NORMAL SALINE 1000 ML 1,000 ML IV PRN ×4 (04:48→22:42)
[2016-12-31 04:57] LABS: ARTERIAL BLOOD BASE EXCESS 1.9 mmol/L; ARTERIAL BLOOD O2 SATURATION 99.2 % (94-98)
[2016-12-31 05:06] LABS: PROTHROMBIN TIME 15.7 SEC (11.4-15.4)
[2016-12-31 05:19] LABS: ALANINE AMINOTRANSFERASE 62 U/L (21-72); ALBUMIN 2.5 g/dL (3.5-5.0); ALKALINE PHOSPHATASE 61 U/L (38-126); ANION GAP 7 (5-19); ASPARTATE AMINO TRANSFERASE 73 U/L (17-59); BILIRUBIN,DIRECT 0.3 mg/dL (0.0-0.4); BILIRUBIN,TOTAL 0.7 mg/dL (0.2-1.3); BLOOD UREA NITROGEN 12 mg/dL (7-20); CARBON DIOXIDE 24 mmol/L (22-30); CHLORIDE 108 mmol/L (98-107); CREATININE RESULT 0.88 mg/dL (0.52-1.25); GLUCOSE 137 mg/dL (75-110); MAGNESIUM 2.2 mg/dL (1.6-2.3); PHOSPHORUS 1.9 mg/dL (2.5-4.5); TOTAL PROTEIN 4.5 g/dL (6.3-8.2); TRIGLYCERIDES 109 mg/dL (<150)
[2016-12-31 05:34] LABS: ABSOLUTE EOSINOPHILS # (AUTO) 0.1 10^3/uL (0.0-0.6); ABSOLUTE LYMPHOCYTES (AUTO) 0.8 10^3/uL (0.5-4.7); ABSOLUTE MONOCYTES (AUTO) 0.3 10^3/uL (0.1-1.4); ABSOLUTE NEUT (AUTO) 9.8 10^3/uL (1.7-8.2); BASOPHILS % (AUTO) 0.2 % (0-2); EOSINOPHILS % (AUTO) 0.8 % (0-6); HEMATOCRIT 32.9 % (37.9-51.0); HGB HCT DIFFERENCE 0.1; LYMPHOCYTES % (AUTO) 7.6 % (13-45); MEAN CORPUSCULAR HEMOGLOBIN 28.9 pg (27.0-33.4); MEAN CORPUSCULAR HGB CONC 33.4 g/dL (32.0-36.0); MEAN CORPUSCULAR VOLUME 87 fl (80-97); MONOCYTES % (AUTO) 2.5 % (3-13); RED CELL DISTRIBUTION WIDTH 16.6 % (11.5-14.0); SEGMENTED NEUTROPHILS % (AUTO) 88.9 % (42-78)
[2016-12-31 05:58] LABS: POTASSIUM 3.6 mmol/L (3.6-5.0)
[2016-12-31] MEDS ORDERED: CALCIUM GLUCONATE 2,000 MG in DEXTROSE 5%-WATER 100 ML IV ONE (06:30)
--- NOTE | 2016-12-31 06:45 | RADIOLOGY REPORT (SQ) ---
EXAM DESCRIPTION: CHEST SINGLE VIEW COMPLETED DATE/TIME: 12/31/2016 6:29 am REASON FOR STUDY: resp failure COMPARISON: 12/30/2016. EXAM PARAMETERS: NUMBER OF VIEWS: One view. TECHNIQUE: Single frontal radiographic view of the chest acquired. RADIATION DOSE: NA LIMITATIONS: None. FINDINGS: LUNGS AND PLEURA: [id number] mixed interstitial and airspace opacity with lower lobe predominance. MEDIASTINUM AND HILAR STRUCTURES: No masses. Contour normal. HEART AND VASCULAR STRUCTURES: Moderate enlargement of the cardiac silhouette. BONES: No acute findings. HARDWARE: Tip of a right subclavian central line is in the inferior right atrium; 9 cm retraction rec ommended. Adequate appearing endotracheal tube. Interval absence of an NG tube. OTHER: No other significant finding. IMPRESSION: No significant interval change.Tip of a right subclavian central line is in the inferior right atrium; 9 cm retraction recommended. TECHNICAL DOCUMENTATION: JOB ID: [id number]
[2016-12-31] MEDS ORDERED: CALCIUM GLUCONATE 1000 MG/10 ML INJ IV ONE (07:19)
[2016-12-31] MEDS: ACETYLCYSTEINE 20% SOLN 800 MG/4 ML VIAL.NEB NEB SCH (08:10)
--- NOTE | 2016-12-31 08:13 | PDOC PROGRESS REPORT ---
Subjective Progress Note for:: 12/31/16 Subjective:: No issues reported. Patient sedated on ventilator. Physical Exam Vital Signs: Temp Pulse Resp BP Pulse Ox 98.6 F 93 18 117/69 98 12/31/16 06:00 12/31/16 02:29 12/31/16 06:00 12/31/16 05:58 12/31/16 06:00 Intake & Output 12/30/16 12/31/16 01/01/17 06:59 06:59 06:59 Intake Total 9031 Output Total 450 2220 Balance -450 6811 Weight 86.1 kg GENERAL: Sedated/intubated HEENT: Conjunctiva clear, nonicteric, moist mucous membranes, no JVD, midline trachea. Endotracheal tube in place RESPIRATORY: Clear to auscultation bilaterally, no wheezes, no rhonchi CARDIAC: Regular rate and rhythm, no murmurs/gallops/rubs ABDOMEN: Soft, nondistended, nontender, positive bowel sounds, no rebound, no guarding EXTREMETIES: No edema, cyanosis, clubbing NEUROLOGIC: Alert, oriented to person/place/time, CN's grossly intact, no focal deficits SKIN: No rash, wounds Results Laboratory Results: 12/31/16 04:30 12/31/16 04:30 12/30/16 12/30/16 12/30/16 08:24 08:45 09:45 WBC 7.4 RBC 5.09 Hgb 14.5 Hct 44.4 MCV 87 MCH 28.6 MCHC 32.7 RDW 16.4 H Plt Count 147 L Seg Neutrophils % Not Reportable Lymphocytes % Not Reportable Monocytes % Not Reportable Eosinophils % Not Reportable Basophils % Not Reportable Absolute Neutrophils Not Reportable Absolute Lymphocytes Not Reportable Absolute Monocytes Not Reportable Absolute Eosinophils Not Reportable Absolute Basophils Not Reportable Carbonic Acid 1.44 H HCO3/H2CO3 Ratio 15:1 ABG pH 7.30 L ABG pCO2 47.7 H ABG pO2 96.7 ABG HCO3 22.7 ABG O2 Saturation 96.6 ABG Base Excess -4.1 FiO2 50% Sodium 145.0 Potassium 4.6 Chloride 107 Carbon Dioxide 23 Anion Gap 15 BUN 16 Creatinine 0.96 Est GFR ( Amer) > 60 Est GFR (Non-Af Amer) > 60 Glucose 88 Calcium 7.3 L Phosphorus Magnesium 1.5 L Total Bilirubin 0.5 AST 378 H ALT 114 H Alkaline Phosphatase 99 Total Protein 5.8 L Albumin 3.2 L Triglycerides Blood Type Antibody Screen 12/30/16 12/30/16 12/30/16 09:45 16:10 21:00 WBC 8.8 13.7 H RBC 4.42 4.19 L Hgb 12.5 L 11.8 L Hct 38.2 36.6 L MCV 87 87 MCH 28.4 28.2 MCHC 32.8 32.3 RDW 16.5 H 17.2 H Plt Count 119 L 119 L Seg Neutrophils % Lymphocytes % Monocytes % Eosinophils % Basophils % Absolute Neutrophils Absolute Lymphocytes Absolute Monocytes Absolute Eosinophils Absolute Basophils Carbonic Acid HCO3/H2CO3 Ratio ABG pH ABG pCO2 ABG pO2 ABG HCO3 ABG O2 Saturation ABG Base Excess FiO2 Sodium Potassium Chloride Carbon Dioxide Anion Gap BUN Creatinine Est GFR ( Amer) Est GFR (Non-Af Amer) Glucose Calcium Phosphorus Magnesium Total Bilirubin AST ALT Alkaline Phosphatase Total Protein Albumin Triglycerides Blood Type O NEGATIVE Antibody Screen NEGATIVE 12/31/16 12/31/16 12/31/16 04:30 04:30 04:30 WBC 11.0 H RBC 3.80 L Hgb 11.0 L Hct 32.9 L MCV 87 MCH 28.9 MCHC 33.4 RDW 16.6 H Plt Count 124 L Seg Neutrophils % 88.9 H Lymphocytes % 7.6 L Monocytes % 2.5 L Eosinophils % 0.8 Basophils % 0.2 Absolute Neutrophils 9.8 H Absolute Lymphocytes 0.8 Absolute Monocytes 0.3 Absolute Eosinophils 0.1 Absolute Basophils 0.0 Carbonic Acid 1.16 HCO3/H2CO3 Ratio 22:1 ABG pH 7.45 ABG pCO2 38.6 ABG pO2 164.8 H ABG HCO3 26.0 ABG O2 Saturation 99.2 H ABG Base Excess 1.9 FiO2 50% Sodium 139.0 Potassium 3.6 D Chloride 108 H Carbon Dioxide 24 Anion Gap 7 BUN 12 Creatinine 0.88 Est GFR ( Amer) > 60 Est GFR (Non-Af Amer) > 60 Glucose 137 H Calcium 6.0 L* Phosphorus 1.9 L Magnesium 2.2 Total Bilirubin 0.7 AST 73 H ALT 62 Alkaline Phosphatase 61 Total Protein 4.5 L Albumin 2.5 L Triglycerides 109 Blood Type Antibody Screen 12/30/16 12/30/16 12/30/16 06:48 06:48 08:24 Creatine Kinase 449 H CK-MB (CK-2) Cancelled 4.09 Troponin I Cancelled < 0.012 12/30/16 12/30/16 12/30/16 08:24 14:50 14:50 Creatine Kinase 470 H 411 H CK-MB (CK-2) 3.39 Troponin I 0.014 12/30/16 12/30/16 21:00 21:00 Creatine Kinase 405 H CK-MB (CK-2) 3.39 Troponin I < 0.012 Impressions: Chest X-Ray 12/31/16 06:00 IMPRESSION: No significant interval change.Tip of a right subclavian central line is in the inferior right atrium; 9 cm retraction recommended. Assessment & Plan - Diagnosis (1) Acute respiratory failure with hypoxia Is this a current diagnosis for this admission?: YesPlan: Continue mechanical ventilation for now. Dr. Whittington of pulmonary medicine consulted. (2) Aspiration pneumonia Qualifiers: Laterality: right Lung location: lower lobe of lung Is this a current diagnosis for this admission?: YesPlan: Continue IV Zosyn for now. High probability of gram-negative bacteria. (3) Sepsis Is this a current diagnosis for this admission?: Yes (4) Alcohol abuse Is this a current diagnosis for this admission?: YesPlan: Continue thiamine. Monitor for signs of withdrawal. (5) Gastritis with hemorrhage Qualifiers: Gastritis type: alcoholic Chronicity: acute Qualified Code(s): K29.21 - Alcoholic gastritis with bleeding Is this a current diagnosis for this admission?: YesPlan: Continue IV Protonix. EGD showed esophagitis. (6) Narcotic overdose Qualifiers: Encounter type: initial encounter Injury intent: undetermined intent Qualified Code(s): T40.604A - Poisoning by unspecified narcotics, undetermined, initial encounter Is this a current diagnosis for this admission?: YesPlan: Psychology to evaluate once patient extubated and able to communicate. (7) Hypocalcemia Is this a current diagnosis for this admission?: YesPlan: Replace. - Time Critical Time spent with patient: 35 or more minutes
[2016-12-31] MEDS: THIAMINE HCL 100 MG, FOLIC ACID 1 MG in NORMAL SALINE 50 ML IV SCH (10:36)
[2016-12-31] MEDS: PANTOPRAZOLE SODIUM 40 MG VIAL IV SCH ×2 (10:36→21:01)
--- NOTE | 2016-12-31 12:18 | PDOC PROGRESS REPORT ---
Subjective Progress Note for:: 12/31/16 Subjective:: Intubated and sedated did not do well during sedation vacation Physical Exam Vital Signs: Temp Pulse Resp BP Pulse Ox 97.9 F 100 18 121/77 100 12/31/16 08:00 12/31/16 08:09 12/31/16 08:09 12/31/16 08:00 12/31/16 08:09 Intake & Output 12/30/16 12/31/16 01/01/17 06:59 06:59 06:59 Intake Total 9031 Output Total 450 2220 275 Balance -450 6811 -275 Weight 86.1 kg General appearance: PRESENT: no acute distress, disheveled, obese, well- developed Head exam: PRESENT: atraumatic, normocephalic Eye exam: PRESENT: conjunctiva pale Mouth exam: PRESENT: moist, neck supple, other - ET tube in place Neck exam: ABSENT: carotid bruit, JVD, lymphadenopathy, thyromegaly Respiratory exam: PRESENT: decreased breath sounds, prolonged expiratory phas, rhonchi, symmetrical Cardiovascular exam: PRESENT: RRR, +S1, +S2 Pulses: PRESENT: normal radial pulses GI/Abdominal exam: PRESENT: normal bowel sounds, soft. ABSENT: distended, guarding, mass, organolmegaly, rebound, tenderness Rectal exam: PRESENT: decreased rectal tone Gentrourinary exam: PRESENT: indwelling catheter Musculoskeletal exam: PRESENT: normal inspection Skin exam: PRESENT: dry, warm Results Laboratory Results: 12/31/16 04:30 12/31/16 04:30 12/30/16 12/30/16 12/30/16 08:24 08:45 09:45 WBC 7.4 RBC 5.09 Hgb 14.5 Hct 44.4 MCV 87 MCH 28.6 MCHC 32.7 RDW 16.4 H Plt Count 147 L Seg Neutrophils % Not Reportable Lymphocytes % Not Reportable Monocytes % Not Reportable Eosinophils % Not Reportable Basophils % Not Reportable Absolute Neutrophils Not Reportable Absolute Lymphocytes Not Reportable Absolute Monocytes Not Reportable Absolute Eosinophils Not Reportable Absolute Basophils Not Reportable Carbonic Acid 1.44 H HCO3/H2CO3 Ratio 15:1 ABG pH 7.30 L ABG pCO2 47.7 H ABG pO2 96.7 ABG HCO3 22.7 ABG O2 Saturation 96.6 ABG Base Excess -4.1 FiO2 50% Sodium 145.0 Potassium 4.6 Chloride 107 Carbon Dioxide 23 Anion Gap 15 BUN 16 Creatinine 0.96 Est GFR ( Amer) > 60 Est GFR (Non-Af Amer) > 60 Glucose 88 Calcium 7.3 L Phosphorus Magnesium 1.5 L Total Bilirubin 0.5 AST 378 H ALT 114 H Alkaline Phosphatase 99 Total Protein 5.8 L Albumin 3.2 L Triglycerides Blood Type Antibody Screen 12/30/16 12/30/16 12/30/16 09:45 16:10 21:00 WBC 8.8 13.7 H RBC 4.42 4.19 L Hgb 12.5 L 11.8 L Hct 38.2 36.6 L MCV 87 87 MCH 28.4 28.2 MCHC 32.8 32.3 RDW 16.5 H 17.2 H Plt Count 119 L 119 L Seg Neutrophils % Lymphocytes % Monocytes % Eosinophils % Basophils % Absolute Neutrophils Absolute Lymphocytes Absolute Monocytes Absolute Eosinophils Absolute Basophils Carbonic Acid HCO3/H2CO3 Ratio ABG pH ABG pCO2 ABG pO2 ABG HCO3 ABG O2 Saturation ABG Base Excess FiO2 Sodium Potassium Chloride Carbon Dioxide Anion Gap BUN Creatinine Est GFR ( Amer) Est GFR (Non-Af Amer) Glucose Calcium Phosphorus Magnesium Total Bilirubin AST ALT Alkaline Phosphatase Total Protein Albumin Triglycerides Blood Type O NEGATIVE Antibody Screen NEGATIVE 12/31/16 12/31/16 12/31/16 04:30 04:30 04:30 WBC 11.0 H RBC 3.80 L Hgb 11.0 L Hct 32.9 L MCV 87 MCH 28.9 MCHC 33.4 RDW 16.6 H Plt Count 124 L Seg Neutrophils % 88.9 H Lymphocytes % 7.6 L Monocytes % 2.5 L Eosinophils % 0.8 Basophils % 0.2 Absolute Neutrophils 9.8 H Absolute Lymphocytes 0.8 Absolute Monocytes 0.3 Absolute Eosinophils 0.1 Absolute Basophils 0.0 Carbonic Acid 1.16 HCO3/H2CO3 Ratio 22:1 ABG pH 7.45 ABG pCO2 38.6 ABG pO2 164.8 H ABG HCO3 26.0 ABG O2 Saturation 99.2 H ABG Base Excess 1.9 FiO2 50% Sodium 139.0 Potassium 3.6 D Chloride 108 H Carbon Dioxide 24 Anion Gap 7 BUN 12 Creatinine 0.88 Est GFR ( Amer) > 60 Est GFR (Non-Af Amer) > 60 Glucose 137 H Calcium 6.0 L* Phosphorus 1.9 L Magnesium 2.2 Total Bilirubin 0.7 AST 73 H ALT 62 Alkaline Phosphatase 61 Total Protein 4.5 L Albumin 2.5 L Triglycerides 109 Blood Type Antibody Screen 12/30/16 12/30/16 12/30/16 06:48 06:48 08:24 Creatine Kinase 449 H CK-MB (CK-2) Cancelled 4.09 Troponin I Cancelled < 0.012 12/30/16 12/30/16 12/30/16 08:24 14:50 14:50 Creatine Kinase 470 H 411 H CK-MB (CK-2) 3.39 Troponin I 0.014 12/30/16 12/30/16 21:00 21:00 Creatine Kinase 405 H CK-MB (CK-2) 3.39 Troponin I < 0.012 Impressions: Chest X-Ray 12/31/16 06:00 IMPRESSION: No significant interval change.Tip of a right subclavian central line is in the inferior right atrium; 9 cm retraction recommended. Assessment & Plan - Diagnosis (1) Acute respiratory failure with hypoxia Is this a current diagnosis for this admission?: YesPlan: Improving (2) Alcohol abuse Is this a current diagnosis for this admission?: YesPlan: corrected Calcium 7.2 Sedation vacation suggest patient is in DTs (3) Aspiration pneumonia Qualifiers: Laterality: right Lung location: lower lobe of lung Is this a current diagnosis for this admission?: YesPlan: Unchanged (4) Gastritis with hemorrhage Qualifiers: Gastritis type: alcoholic Chronicity: acute Qualified Code(s): K29.21 - Alcoholic gastritis with bleeding Is this a current diagnosis for this admission?: Yes (5) Narcotic overdose Qualifiers: Encounter type: initial encounter Injury intent: undetermined intent Qualified Code(s): T40.604A - Poisoning by unspecified narcotics, undetermined, initial encounter Is this a current diagnosis for this admission?: Yes - Time Critical Time spent with patient: 35 or more minutes
[2016-12-31] MEDS: LORAZEPAM INJ 2 MG/1 ML VIAL IV PRN (14:19)
[2017-01-01] MEDS: MIDAZOLAM HCL 100 ML IV PRN ×4 (01:45→22:58)
[2017-01-01] MEDS: LORAZEPAM INJ 2 MG/1 ML VIAL IV PRN ×3 (01:45→19:41)
[2017-01-01] MEDS: PROPOFOL 100 ML IV PRN ×8 (02:16→22:57)
[2017-01-01] MEDS: PIPERACILLIN SODIUM/TAZOBACTAM 4.5 GM in NORMAL SALINE 100 ML IV SCH ×4 (02:17→20:13)
[2017-01-01] MEDS: IPRATROPIUM/ALBUTEROL 0.5-2.5 MG/3 ML AMPUL NEB SCH ×4 (02:24→20:21)
[2017-01-01 04:47] LABS: ARTERIAL BLOOD BASE EXCESS -1.9 mmol/L
[2017-01-01 04:57] LABS: ANION GAP 6 (5-19); BLOOD UREA NITROGEN 9 mg/dL (7-20); CARBON DIOXIDE 19 mmol/L (22-30); CHLORIDE 114 mmol/L (98-107); CREATININE RESULT 0.81 mg/dL (0.52-1.25); GLUCOSE 78 mg/dL (75-110); MAGNESIUM 2.1 mg/dL (1.6-2.3); POTASSIUM 3.8 mmol/L (3.6-5.0)
[2017-01-01 05:10] LABS: CALCIUM 6.6 mg/dL (8.4-10.2)
[2017-01-01 05:11] LABS: ABSOLUTE EOSINOPHILS # (AUTO) 0.1 10^3/uL (0.0-0.6); ABSOLUTE LYMPHOCYTES (AUTO) 0.7 10^3/uL (0.5-4.7); ABSOLUTE MONOCYTES (AUTO) 0.2 10^3/uL (0.1-1.4); ABSOLUTE NEUT (AUTO) 8.8 10^3/uL (1.7-8.2); BASOPHILS % (AUTO) 0.4 % (0-2); EOSINOPHILS % (AUTO) 1.3 % (0-6); HEMATOCRIT 32.1 % (37.9-51.0); HEMOGLOBIN 10.6 g/dL (13.5-17.0); HGB HCT DIFFERENCE -0.3; MEAN CORPUSCULAR HEMOGLOBIN 28.7 pg (27.0-33.4); MEAN CORPUSCULAR HGB CONC 32.9 g/dL (32.0-36.0); MEAN CORPUSCULAR VOLUME 87 fl (80-97); MONOCYTES % (AUTO) 1.9 % (3-13); RED BLOOD COUNT 3.68 10^6/uL (4.35-5.55); RED CELL DISTRIBUTION WIDTH 16.6 % (11.5-14.0); SEGMENTED NEUTROPHILS % (AUTO) 89.4 % (42-78); WHITE BLOOD COUNT 9.8 10^3/uL (4.0-10.5)
--- NOTE | 2017-01-01 07:05 | RADIOLOGY REPORT (SQ) ---
EXAM DESCRIPTION: CHEST SINGLE VIEW COMPLETED DATE/TIME: 01/01/2017 6:43 am REASON FOR STUDY: resp failure COMPARISON: Chest x-ray 12/31/2016. EXAM PARAMETERS: NUMBER OF VIEWS: One view TECHNIQUE: Single frontal radiograph of the chest. RADIATION DOSE: N/A LIMITATIONS: The patient is rotated. FINDINGS: TEMPORARY SUPPORT DEVICES:ETT in expected location. Right-sided subclavian central line r emains with the tip overlying the inferior right atrium. LUNGS AND PLEURA: Interval increase in the airspace opacity at the right lung base. Small right pleu ral effusion. Persistent left basilar airspace opacity. No pneumothorax. MEDIASTINUM AND HILAR STRUCTURES: No masses. Contour normal. HEART AND VASCULAR STRUCTURES: The heart is enlarged. There is central vascular congestion. BONES: No acute findings. IMPRESSION: Bilateral airspace opacities, increased at the right lung base, may represent worsening atelectasis or pneumonia. Small right pleural effusion. Cardiomegaly and central vascular congestion. Right-sided subclavian central line remains with the tip at the inferior right atrium, retraction by approximately 9 cm recommended. RECOMMENDATIONS: Retraction of the right-sided subclavian central line. TECHNICAL DOCUMENTATION: JOB ID: [id number] 2010 [employer]- All Rights Reserved
[2017-01-01] MEDS ORDERED: FUROSEMIDE INJ/PF 20 MG/2 ML SDV IV ONE (09:00)
[2017-01-01] MEDS ORDERED: CALCIUM CARBONATE 500 MG TAB.CHEW PO ONE (09:15)
--- NOTE | 2017-01-01 09:46 | RADIOLOGY REPORT (SQ) ---
EXAM DESCRIPTION: KUB/ABDOMEN (SINGLE VIEW) COMPLETED DATE/TIME: 01/01/2017 9:23 am REASON FOR STUDY: tube placement COMPARISON: None. NUMBER OF VIEWS: One view. TECHNIQUE: Supine radiographic image of the abdomen acquired. LIMITATIONS: None. FINDINGS: BOWEL GAS PATTERN: Normal bowel gas pattern. No dilated loops. CALCIFICATIONS: No suspicious calcifications. SOFT TISSUES: No gross mass or suggestion of organomegaly. HARDWARE: Nasogastric tube projects with tip and side hole projecting over the left upper quadrant in the region of the stomach. BONES: No acute fracture. No worrisome bone lesions. OTHER: No other significant finding. IMPRESSION: NG tube appears to be adequate position. TECHNICAL DOCUMENTATION: JOB ID: [id number] [employer]- All Rights Reserved
[2017-01-01] MEDS ORDERED: SODIUM PHOS,M-BASIC-D-BASIC 60 MMOL in NORMAL SALINE 500 ML IV ONE (10:00)
[2017-01-01] MEDS: THIAMINE HCL 100 MG, FOLIC ACID 1 MG in NORMAL SALINE 50 ML IV SCH (10:13)
[2017-01-01] MEDS: PANTOPRAZOLE SODIUM 40 MG VIAL IV SCH (10:15)
[2017-01-01] MEDS: NORMAL SALINE 1000 ML 1,000 ML IV PRN ×2 (11:13→20:32)
[2017-01-01] MEDS: CALCIUM CARBONATE 500 MG TAB.CHEW PO SCH ×3 (11:15→21:46)
--- NOTE | 2017-01-01 17:32 | PDOC PROGRESS REPORT ---
Subjective Progress Note for:: 01/01/17 Subjective:: No issues reported. Patient sedated on ventilator. Physical Exam Vital Signs: Temp Pulse Resp BP Pulse Ox 100.4 F 95 18 161/99 H 97 01/01/17 16:00 01/01/17 16:00 01/01/17 16:00 01/01/17 16:00 01/01/17 16:10 Intake & Output 12/31/16 01/01/17 01/02/17 06:59 06:59 06:59 Intake Total 9031 6185 Output Total 2220 2975 5400 Balance 6811 3210 -5400 Weight 86.1 kg 89.5 kg GENERAL: Sedated/intubated HEENT: Conjunctiva clear, nonicteric, moist mucous membranes, no JVD, midline trachea. Endotracheal tube in place RESPIRATORY: Clear to auscultation bilaterally, no wheezes, no rhonchi CARDIAC: Regular rate and rhythm, no murmurs/gallops/rubs ABDOMEN: Soft, nondistended, nontender, positive bowel sounds, no rebound, no guarding EXTREMETIES: No edema, cyanosis, clubbing NEUROLOGIC: Alert, oriented to person/place/time, CN's grossly intact, no focal deficits SKIN: No rash, wounds Results Laboratory Results: 01/01/17 04:25 01/01/17 04:25 01/01/17 01/01/17 01/01/17 04:25 04:25 04:25 WBC 9.8 RBC 3.68 L Hgb 10.6 L Hct 32.1 L MCV 87 MCH 28.7 MCHC 32.9 RDW 16.6 H Plt Count 99 L Seg Neutrophils % 89.4 H Lymphocytes % 7.0 L Monocytes % 1.9 L Eosinophils % 1.3 Basophils % 0.4 Absolute Neutrophils 8.8 H Absolute Lymphocytes 0.7 Absolute Monocytes 0.2 Absolute Eosinophils 0.1 Absolute Basophils 0.0 Carbonic Acid 1.04 L HCO3/H2CO3 Ratio 21:1 ABG pH 7.42 ABG pCO2 34.4 L ABG pO2 106.1 H ABG HCO3 22.0 ABG O2 Saturation 98.0 ABG Base Excess -1.9 FiO2 30% Sodium 139.0 Potassium 3.8 Chloride 114 H Carbon Dioxide 19 L Anion Gap 6 BUN 9 Creatinine 0.81 Est GFR ( Amer) > 60 Est GFR (Non-Af Amer) > 60 Glucose 78 Calcium 6.6 L* Magnesium 2.1 Albumin 01/01/17 04:25 WBC RBC Hgb Hct MCV MCH MCHC RDW Plt Count Seg Neutrophils % Lymphocytes % Monocytes % Eosinophils % Basophils % Absolute Neutrophils Absolute Lymphocytes Absolute Monocytes Absolute Eosinophils Absolute Basophils Carbonic Acid HCO3/H2CO3 Ratio ABG pH ABG pCO2 ABG pO2 ABG HCO3 ABG O2 Saturation ABG Base Excess FiO2 Sodium Potassium Chloride Carbon Dioxide Anion Gap BUN Creatinine Est GFR ( Amer) Est GFR (Non-Af Amer) Glucose Calcium Magnesium Albumin 2.4 L 12/30/16 13:45 Tracheal Aspirate Gram Stain - Final 12/30/16 12/30/16 12/30/16 06:48 06:48 08:24 Creatine Kinase 449 H CK-MB (CK-2) Cancelled 4.09 Troponin I Cancelled < 0.012 12/30/16 12/30/16 12/30/16 08:24 14:50 14:50 Creatine Kinase 470 H 411 H CK-MB (CK-2) 3.39 Troponin I 0.014 12/30/16 12/30/16 21:00 21:00 Creatine Kinase 405 H CK-MB (CK-2) 3.39 Troponin I < 0.012 Impressions: KUB X-Ray 01/01/17 00:00 IMPRESSION: NG tube appears to be adequate position. Chest X-Ray 01/01/17 06:00 IMPRESSION: Bilateral airspace opacities, increased at the right lung base, may represent worsening atelectasis or pneumonia. Small right pleural effusion. Cardiomegaly and central vascular congestion. Right-sided subclavian central line remains with the tip at the inferior right atrium, retraction by approximately 9 cm recommended. Assessment & Plan - Diagnosis (1) Acute respiratory failure with hypoxia Is this a current diagnosis for this admission?: YesPlan: Continue mechanical ventilation for now. Dr. Whittington of pulmonary medicine consulted. (2) Aspiration pneumonia Qualifiers: Laterality: right Lung location: lower lobe of lung Is this a current diagnosis for this admission?: YesPlan: Continue IV Zosyn for now. High probability of gram-negative bacteria. (3) Sepsis Is this a current diagnosis for this admission?: Yes (4) Alcohol abuse Is this a current diagnosis for this admission?: YesPlan: Continue thiamine. Monitor for signs of withdrawal. (5) Gastritis with hemorrhage Qualifiers: Gastritis type: alcoholic Chronicity: acute Qualified Code(s): K29.21 - Alcoholic gastritis with bleeding Is this a current diagnosis for this admission?: YesPlan: Discontinue IV Protonix. Start Prevacid. EGD showed esophagitis. (6) Narcotic overdose Qualifiers: Encounter type: initial encounter Injury intent: undetermined intent Qualified Code(s): T40.604A - Poisoning by unspecified narcotics, undetermined, initial encounter Is this a current diagnosis for this admission?: YesPlan: Psychology to evaluate once patient extubated and able to communicate. (7) Hypocalcemia Is this a current diagnosis for this admission?: Yes (8) Thrombocytopenia Is this a current diagnosis for this admission?: YesPlan: Likely secondary to alcohol abuse and sepsis. Monitor platelet count. Avoid aggravating medications. (9) Malnutrition Is this a current diagnosis for this admission?: YesPlan: Start tube feeding for now until patient extubated and able to take oral intake. (10) Pulmonary edema Qualifiers: Chronicity: acute Qualified Code(s): J81.0 - Acute pulmonary edema Is this a current diagnosis for this admission?: YesPlan: Decrease IV fluids. Lasix 20 mg IV 1 dose. Check echocardiogram. - Time Critical Time spent with patient: 35 or more minutes
--- NOTE | 2017-01-01 18:35 | XCELERA REPORT ---
[address] [address] Transthoracic Echocardiogram Report Name: CYRUS EPPERSON Age: 36 yrs Gender: Male : 1980 Patient Status: Inpatient Patient Location: ICU\S\605\S\A Study Date: 01/01/2017 08:58 AM Height: 66 in Weight: 197 lb BSA: 2.0 m2 Procedure: A two-dimensional transthoracic echocardiogram with color flow and Doppler was performed. Study Quality: Technically suboptimal. The study was technically difficult with many images being suboptimal in quality. Reason For Study: Pulmonary Edema History: Pulmonary Edema. Ordering Physician: ROMULO RYDER Performed By: Ashli Watters Interpretation Summary The left ventricle is moderately dilated. There is normal left ventricular wall thickness. LV EF is Moderately reduced at 40%.% Left ventricular systolic function is moderately reduced. There is moderate global hypokinesis of the left ventricle. There is no thrombus. The right ventricle is not well visualized secondary to technical limitations The right atrium is normal. The left atrial size is normal. There is no evidence of mitral valve prolapse. There is no vegetation seen on the mitral valve. There is no mitral valve stenosis. There is a trace amount of mitral regurgitation There is no aortic valve stenosis There is no LVOT obstruction. No aortic regurgitation is present. The aortic root is normal size. The inferior vena cava appeared dilated and decreased < 50% with respiration (RAP 15-20 mmHg) There is no tricuspid stenosis. There is a mild amount of tricuspid regurgitation Mild to moderate pulmonary hypertension.RVSP is 46 to 51 mm of Hg, with RA mean of 15 to 20. There is no pericardial effusion. MMode/2D Measurements \T\ Calculations RVDd: 2.1 cm LVIDd: 5.9 cm FS: 22.2 % Ao root diam: 3.3 cm IVSd: 0.70 cm LVIDs: 4.6 cm EDV(Teich): 175.5 ml LVPWd: 0.97 cmESV(Teich): 98.0 ml Ao root area: 8.7 cm2 EF(Teich): 44.1 % LVOT diam: 2.0 cm LVOT area: 3.0 cm2 Doppler Measurements \T\ Calculations MV E max amina: MV dec slope: Ao V2 max: LV V1 max P.1 cm/sec 574.1 cm/sec2 114.2 cm/sec 3.1 mmHg MV A max amina: MV dec time: Ao max PG: LV V1 max: 82.7 cm/sec 0.14 sec 5.2 mmHg 88.4 cm/sec MV E/A: 0.96 ROOSE[place]ELT(V,D): 2.3 cm2 MR max amina: PA V2 max: TR max amina: 383.5 cm/sec 57.1 cm/sec 240.0 cm/sec MR max PG: PA max P.3 mmHg TR max P.8 mmHg 23.8 mmHg Left Ventricle The left ventricle is moderately dilated. There is normal left ventricular wall thickness. LV EF is Moderately reduced at 40%.%. Left ventricular systolic function is moderately reduced. There is moderate global hypokinesis of the left ventricle. There is no thrombus. There is no ventricular septal defect visualized. Right Ventricle The right ventricle is not well visualized secondary to technical limitations. Atria The right atrium is normal. The left atrial size is normal. The interatrial septum is intact with no evidence for an atrial septal defect. Mitral Valve There is no evidence of mitral valve prolapse. There is no vegetation seen on the mitral valve. There is no mitral valve stenosis. There is a trace amount of mitral regurgitation. Aortic Valve The aortic valve is trileaflet. The aortic valve opens well. There is no aortic valvular vegetation. There is no aortic valve stenosis. There is no LVOT obstruction. No aortic regurgitation is present. Tricuspid Valve There is no tricuspid stenosis. There is a mild amount of tricuspid regurgitation. Mild to moderate pulmonary hypertension.RVSP is 46 to 51 mm of Hg, with RA mean of 15 to 20. Pulmonic Valve There is no pulmonic valvular stenosis. There is no pulmonic valvular regurgitation. Great Vessels The aortic root is normal size. The inferior vena cava appeared dilated and decreased < 50% with respiration (RAP 15-20 mmHg). Effusions There is no pericardial effusion. : ROMULO RYDER > Sahra Carpenter
[2017-01-01] MEDS: METOPROLOL TARTRATE 50 MG TABLET NG SCH (21:46)
[2017-01-02] MEDS: SUCRALFATE SUSP 1 GM/10 ML UDCUP NG SCH ×5 (00:01→23:21)
[2017-01-02] MEDS: PROPOFOL 100 ML IV PRN ×8 (01:42→21:20)
[2017-01-02] MEDS: PIPERACILLIN SODIUM/TAZOBACTAM 4.5 GM in NORMAL SALINE 100 ML IV SCH ×4 (02:03→20:34)
[2017-01-02] MEDS: IPRATROPIUM/ALBUTEROL 0.5-2.5 MG/3 ML AMPUL NEB SCH ×4 (02:07→20:33)
[2017-01-02] MEDS: MIDAZOLAM HCL 100 ML IV PRN ×4 (05:23→23:21)
[2017-01-02] MEDS: LANSOPRAZOLE 30 MG TAB.RAP.DR PO SCH ×2 (05:23→16:30)
[2017-01-02 05:27] LABS: ARTERIAL BLOOD BASE EXCESS -1.8 mmol/L; ARTERIAL BLOOD O2 SATURATION 95.8 % (94-98)
[2017-01-02 05:30] LABS: ABSOLUTE EOSINOPHILS # (AUTO) 0.1 10^3/uL (0.0-0.6); ABSOLUTE LYMPHOCYTES (AUTO) 0.9 10^3/uL (0.5-4.7); ABSOLUTE MONOCYTES (AUTO) 0.2 10^3/uL (0.1-1.4); ABSOLUTE NEUT (AUTO) 5.3 10^3/uL (1.7-8.2); BASOPHILS % (AUTO) 0.5 % (0-2); EOSINOPHILS % (AUTO) 1.9 % (0-6); HEMATOCRIT 34.2 % (37.9-51.0); HEMOGLOBIN 11.4 g/dL (13.5-17.0); LYMPHOCYTES % (AUTO) 13.5 % (13-45); MEAN CORPUSCULAR HEMOGLOBIN 28.5 pg (27.0-33.4); MEAN CORPUSCULAR HGB CONC 33.2 g/dL (32.0-36.0); MEAN CORPUSCULAR VOLUME 86 fl (80-97); MONOCYTES % (AUTO) 3.8 % (3-13); RED BLOOD COUNT 3.99 10^6/uL (4.35-5.55); SEGMENTED NEUTROPHILS % (AUTO) 80.3 % (42-78); WHITE BLOOD COUNT 6.6 10^3/uL (4.0-10.5)
[2017-01-02 05:41] LABS: ANION GAP 7 (5-19); BLOOD UREA NITROGEN 10 mg/dL (7-20); CALCIUM 7.4 mg/dL (8.4-10.2); CARBON DIOXIDE 22 mmol/L (22-30); CHLORIDE 113 mmol/L (98-107); CREATININE RESULT 0.75 mg/dL (0.52-1.25); GLUCOSE 100 mg/dL (75-110); MAGNESIUM 2.1 mg/dL (1.6-2.3); PHOSPHORUS 2.6 mg/dL (2.5-4.5); POTASSIUM 3.4 mmol/L (3.6-5.0)
[2017-01-02] MEDS: POTASSIUM CHLORIDE 20 MEQ/15 ML UDCUP PO SCH ×2 (06:29→09:24)
--- NOTE | 2017-01-02 07:02 | RADIOLOGY REPORT (SQ) ---
EXAM DESCRIPTION: CHEST SINGLE VIEW COMPLETED DATE/TIME: 01/02/2017 6:14 am REASON FOR STUDY: resp failure COMPARISON: 01/01/2017. EXAM PARAMETERS: NUMBER OF VIEWS: One view. TECHNIQUE: Single frontal radiographic view of the chest acquired. RADIATION DOSE: NA LIMITATIONS: None. FINDINGS: LUNGS AND PLEURA: Moderate airspace opacity of the right lower lobe. Small left lower lob ar atelectasis or scar. Moderate lung volumes. MEDIASTINUM AND HILAR STRUCTURES: No masses. Contour normal. HEART AND VASCULAR STRUCTURES: Heart normal in size. Normal vasculature. BONES: No acute findings. HARDWARE: Adequate appearing endotracheal tube. Right subclavian central line tip at the inferior ri ght atrium ; consider 9 cm retraction. Adequate appearing partially imaged nasogastric tube with pro ximal port over the left upper abdominal quadrant -stomach. OTHER: No other significant finding. IMPRESSION: Moderate right lower lobar airspace opacity with some improved aeration of the right roddy g base. Lines and tubes. TECHNICAL DOCUMENTATION: JOB ID: [id number]
[2017-01-02] MEDS: THIAMINE HCL 100 MG, FOLIC ACID 1 MG in NORMAL SALINE 50 ML IV SCH (09:24)
[2017-01-02] MEDS: METOPROLOL TARTRATE 50 MG TABLET NG SCH (09:24)
[2017-01-02] MEDS: LISINOPRIL 10 MG TABLET NG SCH (09:24)
[2017-01-02] MEDS: CALCIUM CARBONATE 500 MG TAB.CHEW PO SCH ×4 (09:24→21:19)
[2017-01-02] MEDS: NORMAL SALINE 1000 ML 1,000 ML IV PRN ×2 (09:35→21:20)
--- NOTE | 2017-01-02 13:44 | PDOC PROGRESS REPORT ---
Subjective Progress Note for:: 01/02/17 Subjective:: No issues reported. Patient sedated on ventilator. Physical Exam Vital Signs: Temp Pulse Resp BP Pulse Ox 99.0 F 76 19 174/115 H 97 01/02/17 10:24 01/02/17 09:23 01/02/17 10:24 01/02/17 10:24 01/02/17 11:56 Intake & Output 01/01/17 01/02/17 01/03/17 06:59 06:59 06:59 Intake Total 0147 4907 Output Total 5830 8258 165 Balance 7163 -2466 -6788 Weight 89.5 kg 86.8 kg GENERAL: Sedated/intubated HEENT: Conjunctiva clear, nonicteric, moist mucous membranes, no JVD, midline trachea. Endotracheal tube in place RESPIRATORY: Clear to auscultation bilaterally, no wheezes, no rhonchi CARDIAC: Regular rate and rhythm, no murmurs/gallops/rubs ABDOMEN: Soft, nondistended, nontender, positive bowel sounds, no rebound, no guarding EXTREMETIES: No edema, cyanosis, clubbing NEUROLOGIC: Sedated SKIN: No rash, wounds Results Laboratory Results: 01/02/17 05:15 01/02/17 05:15 01/02/17 01/02/17 01/02/17 05:15 05:15 05:15 WBC 6.6 RBC 3.99 L Hgb 11.4 L Hct 34.2 L MCV 86 MCH 28.5 MCHC 33.2 RDW 17.0 H Plt Count 129 L Seg Neutrophils % 80.3 H Lymphocytes % 13.5 Monocytes % 3.8 Eosinophils % 1.9 Basophils % 0.5 Absolute Neutrophils 5.3 Absolute Lymphocytes 0.9 Absolute Monocytes 0.2 Absolute Eosinophils 0.1 Absolute Basophils 0.0 Carbonic Acid 1.01 L HCO3/H2CO3 Ratio 21:1 ABG pH 7.43 ABG pCO2 33.6 L ABG pO2 76.8 L ABG HCO3 21.7 ABG O2 Saturation 95.8 ABG Base Excess -1.8 FiO2 21% Sodium 142.0 Potassium 3.4 L Chloride 113 H Carbon Dioxide 22 Anion Gap 7 BUN 10 Creatinine 0.75 Est GFR ( Amer) > 60 Est GFR (Non-Af Amer) > 60 Glucose 100 Calcium 7.4 L Phosphorus 2.6 Magnesium 2.1 12/30/16 13:45 Tracheal Aspirate Gram Stain - Final 12/30/16 12/30/16 12/30/16 06:48 06:48 08:24 Creatine Kinase 449 H CK-MB (CK-2) Cancelled 4.09 Troponin I Cancelled < 0.012 12/30/16 12/30/16 12/30/16 08:24 14:50 14:50 Creatine Kinase 470 H 411 H CK-MB (CK-2) 3.39 Troponin I 0.014 12/30/16 12/30/16 21:00 21:00 Creatine Kinase 405 H CK-MB (CK-2) 3.39 Troponin I < 0.012 Impressions: KUB X-Ray 01/01/17 00:00 IMPRESSION: NG tube appears to be adequate position. Chest X-Ray 01/02/17 06:00 IMPRESSION: Moderate right lower lobar airspace opacity with some improved aeration of the right lung base. Lines and tubes. Assessment & Plan - Diagnosis (1) Acute respiratory failure with hypoxia Is this a current diagnosis for this admission?: YesPlan: Continue mechanical ventilation for now. Dr. Whittington of pulmonary medicine consulted. (2) Aspiration pneumonia Qualifiers: Laterality: right Lung location: lower lobe of lung Is this a current diagnosis for this admission?: YesPlan: Continue IV Zosyn for now. High probability of gram-negative bacteria. (3) Sepsis Is this a current diagnosis for this admission?: Yes (4) Alcohol abuse Is this a current diagnosis for this admission?: YesPlan: Continue thiamine. Monitor for signs of withdrawal. (5) Gastritis with hemorrhage Qualifiers: Gastritis type: alcoholic Chronicity: acute Qualified Code(s): K29.21 - Alcoholic gastritis with bleeding Is this a current diagnosis for this admission?: YesPlan: Continue Prevacid. EGD showed esophagitis. (6) Narcotic overdose Qualifiers: Encounter type: initial encounter Injury intent: undetermined intent Qualified Code(s): T40.604A - Poisoning by unspecified narcotics, undetermined, initial encounter Is this a current diagnosis for this admission?: YesPlan: Psychology to evaluate once patient extubated and able to communicate. (7) Hypocalcemia Is this a current diagnosis for this admission?: Yes (8) Thrombocytopenia Is this a current diagnosis for this admission?: YesPlan: Likely secondary to alcohol abuse and sepsis. Monitor platelet count. Avoid aggravating medications. (9) Malnutrition Is this a current diagnosis for this admission?: YesPlan: Continue tube feeding for now until patient extubated and able to take oral intake. (10) Acute systolic (congestive) heart failure Is this a current diagnosis for this admission?: YesPlan: IV fluids decreased. Patient was given 1 dose of IV Lasix on 01/01/2017. Echocardiogram showed EF 40%. 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 Discontinue Lopressor. Start Coreg 25 mg twice daily. Continue lisinopril. (11) Diarrhea Is this a current diagnosis for this admission?: YesPlan: Check stool for C. difficile. - Time Time Spent with patient: 35 or more minutes
[2017-01-02] MEDS ORDERED: HYDRALAZINE HCL INJ/PF 20 MG/1 ML SDV IV PRN (13:53)
--- NOTE | 2017-01-02 14:23 | PDOC PROGRESS REPORT ---
Subjective Progress Note for:: 01/01/17 Subjective:: Intubated and sedatedvery combative during sedation vacation Physical Exam Vital Signs: Temp Pulse Resp BP Pulse Ox 97.5 F 70 18 131/88 H 99 01/01/17 07:51 01/01/17 07:51 01/01/17 07:51 01/01/17 07:51 01/01/17 07:51 Intake & Output 12/31/16 01/01/17 01/02/17 06:59 06:59 06:59 Intake Total 9031 6185 Output Total 2220 2975 200 Balance 6811 3210 -200 Weight 86.1 kg 89.5 kg General appearance: PRESENT: no acute distress, disheveled, well-developed, well -nourished Head exam: PRESENT: atraumatic, normocephalic Eye exam: PRESENT: conjunctiva pale Mouth exam: PRESENT: moist, neck supple, other - ET tube Neck exam: PRESENT: carotid bruit Respiratory exam: PRESENT: decreased breath sounds, prolonged expiratory phas, rales - r base, rhonchi, unlabored Cardiovascular exam: PRESENT: RRR, +S1, +S2 Pulses: PRESENT: normal radial pulses GI/Abdominal exam: PRESENT: ascites Rectal exam: PRESENT: deferred Gentrourinary exam: PRESENT: indwelling catheter Musculoskeletal exam: PRESENT: normal inspection Skin exam: PRESENT: dry, warm Results Laboratory Results: 01/01/17 04:25 01/01/17 04:25 01/01/17 01/01/17 01/01/17 04:25 04:25 04:25 WBC 9.8 RBC 3.68 L Hgb 10.6 L Hct 32.1 L MCV 87 MCH 28.7 MCHC 32.9 RDW 16.6 H Plt Count 99 L Seg Neutrophils % 89.4 H Lymphocytes % 7.0 L Monocytes % 1.9 L Eosinophils % 1.3 Basophils % 0.4 Absolute Neutrophils 8.8 H Absolute Lymphocytes 0.7 Absolute Monocytes 0.2 Absolute Eosinophils 0.1 Absolute Basophils 0.0 Carbonic Acid 1.04 L HCO3/H2CO3 Ratio 21:1 ABG pH 7.42 ABG pCO2 34.4 L ABG pO2 106.1 H ABG HCO3 22.0 ABG O2 Saturation 98.0 ABG Base Excess -1.9 FiO2 30% Sodium 139.0 Potassium 3.8 Chloride 114 H Carbon Dioxide 19 L Anion Gap 6 BUN 9 Creatinine 0.81 Est GFR ( Amer) > 60 Est GFR (Non-Af Amer) > 60 Glucose 78 Calcium 6.6 L* Magnesium 2.1 Albumin 01/01/17 04:25 WBC RBC Hgb Hct MCV MCH MCHC RDW Plt Count Seg Neutrophils % Lymphocytes % Monocytes % Eosinophils % Basophils % Absolute Neutrophils Absolute Lymphocytes Absolute Monocytes Absolute Eosinophils Absolute Basophils Carbonic Acid HCO3/H2CO3 Ratio ABG pH ABG pCO2 ABG pO2 ABG HCO3 ABG O2 Saturation ABG Base Excess FiO2 Sodium Potassium Chloride Carbon Dioxide Anion Gap BUN Creatinine Est GFR ( Amer) Est GFR (Non-Af Amer) Glucose Calcium Magnesium Albumin 2.4 L 12/30/16 12/30/16 12/30/16 06:48 06:48 08:24 Creatine Kinase 449 H CK-MB (CK-2) Cancelled 4.09 Troponin I Cancelled < 0.012 12/30/16 12/30/16 12/30/16 08:24 14:50 14:50 Creatine Kinase 470 H 411 H CK-MB (CK-2) 3.39 Troponin I 0.014 12/30/16 12/30/16 21:00 21:00 Creatine Kinase 405 H CK-MB (CK-2) 3.39 Troponin I < 0.012 Impressions: Chest X-Ray 01/01/17 06:00 IMPRESSION: Bilateral airspace opacities, increased at the right lung base, may represent worsening atelectasis or pneumonia. Small right pleural effusion. Cardiomegaly and central vascular congestion. Right-sided subclavian central line remains with the tip at the inferior right atrium, retraction by approximately 9 cm recommended. Assessment & Plan - Diagnosis (1) Acute respiratory failure with hypoxia Is this a current diagnosis for this admission?: Yes (2) Alcohol abuse Is this a current diagnosis for this admission?: Yes (3) Aspiration pneumonia Qualifiers: Laterality: right Lung location: lower lobe of lung Is this a current diagnosis for this admission?: Yes (4) Gastritis with hemorrhage Qualifiers: Gastritis type: alcoholic Chronicity: acute Qualified Code(s): K29.21 - Alcoholic gastritis with bleeding Is this a current diagnosis for this admission?: Yes (5) Narcotic overdose Qualifiers: Encounter type: initial encounter Injury intent: undetermined intent Qualified Code(s): T40.604A - Poisoning by unspecified narcotics, undetermined, initial encounter Is this a current diagnosis for this admission?: Yes (6) Hypophosphatemia Is this a current diagnosis for this admission?: Yes (7) Hypocalcemia Is this a current diagnosis for this admission?: Yes - Time Critical Time spent with patient: 35 or more minutes
--- NOTE | 2017-01-02 14:25 | PDOC PROGRESS REPORT ---
Subjective Progress Note for:: 01/02/17 Subjective:: Intubated and sedatedvery combative during sedation vacation Physical Exam Vital Signs: Temp Pulse Resp BP Pulse Ox 97.2 F 70 18 150/110 H 96 01/02/17 07:50 01/02/17 07:50 01/02/17 07:50 01/02/17 07:50 01/02/17 07:50 Intake & Output 01/01/17 01/02/17 01/03/17 06:59 06:59 06:59 Intake Total 6185 4901 Output Total 2975 7645 150 Balance 3210 -2744 -150 Weight 89.5 kg 86.8 kg General appearance: PRESENT: no acute distress, disheveled, well-developed, well -nourished Head exam: PRESENT: atraumatic, normocephalic Eye exam: PRESENT: conjunctiva pale Mouth exam: PRESENT: dry mucosa, neck supple, other - ET tube Neck exam: ABSENT: carotid bruit, JVD, lymphadenopathy, thyromegaly Respiratory exam: PRESENT: decreased breath sounds, prolonged expiratory phas, rales, symmetrical, unlabored Cardiovascular exam: PRESENT: RRR, +S1, +S2 Pulses: PRESENT: normal radial pulses GI/Abdominal exam: PRESENT: normal bowel sounds, soft. ABSENT: distended, guarding, mass, organolmegaly, rebound, tenderness Rectal exam: PRESENT: deferred Gentrourinary exam: PRESENT: indwelling catheter Musculoskeletal exam: PRESENT: normal inspection Skin exam: PRESENT: dry, warm Results Laboratory Results: 01/02/17 05:15 01/02/17 05:15 01/02/17 01/02/17 01/02/17 05:15 05:15 05:15 WBC 6.6 RBC 3.99 L Hgb 11.4 L Hct 34.2 L MCV 86 MCH 28.5 MCHC 33.2 RDW 17.0 H Plt Count 129 L Seg Neutrophils % 80.3 H Lymphocytes % 13.5 Monocytes % 3.8 Eosinophils % 1.9 Basophils % 0.5 Absolute Neutrophils 5.3 Absolute Lymphocytes 0.9 Absolute Monocytes 0.2 Absolute Eosinophils 0.1 Absolute Basophils 0.0 Carbonic Acid 1.01 L HCO3/H2CO3 Ratio 21:1 ABG pH 7.43 ABG pCO2 33.6 L ABG pO2 76.8 L ABG HCO3 21.7 ABG O2 Saturation 95.8 ABG Base Excess -1.8 FiO2 21% Sodium 142.0 Potassium 3.4 L Chloride 113 H Carbon Dioxide 22 Anion Gap 7 BUN 10 Creatinine 0.75 Est GFR ( Amer) > 60 Est GFR (Non-Af Amer) > 60 Glucose 100 Calcium 7.4 L Phosphorus 2.6 Magnesium 2.1 12/30/16 13:45 Tracheal Aspirate Gram Stain - Final 12/30/16 12/30/16 12/30/16 06:48 06:48 08:24 Creatine Kinase 449 H CK-MB (CK-2) Cancelled 4.09 Troponin I Cancelled < 0.012 12/30/16 12/30/16 12/30/16 08:24 14:50 14:50 Creatine Kinase 470 H 411 H CK-MB (CK-2) 3.39 Troponin I 0.014 12/30/16 12/30/16 21:00 21:00 Creatine Kinase 405 H CK-MB (CK-2) 3.39 Troponin I < 0.012 Impressions: KUB X-Ray 01/01/17 00:00 IMPRESSION: NG tube appears to be adequate position. Chest X-Ray 01/02/17 06:00 IMPRESSION: Moderate right lower lobar airspace opacity with some improved aeration of the right lung base. Lines and tubes. Assessment & Plan - Diagnosis (1) Acute respiratory failure with hypoxia Is this a current diagnosis for this admission?: Yes (2) Alcohol abuse Is this a current diagnosis for this admission?: Yes (3) Aspiration pneumonia Qualifiers: Laterality: right Lung location: lower lobe of lung Is this a current diagnosis for this admission?: Yes (4) Gastritis with hemorrhage Qualifiers: Gastritis type: alcoholic Chronicity: acute Qualified Code(s): K29.21 - Alcoholic gastritis with bleeding Is this a current diagnosis for this admission?: Yes (5) Narcotic overdose Qualifiers: Encounter type: initial encounter Injury intent: undetermined intent Qualified Code(s): T40.604A - Poisoning by unspecified narcotics, undetermined, initial encounter Is this a current diagnosis for this admission?: Yes (6) Hypophosphatemia Is this a current diagnosis for this admission?: Yes (7) Hypocalcemia Is this a current diagnosis for this admission?: Yes - Time Critical Time spent with patient: 25-34 minutes
[2017-01-02] MEDS ORDERED: METRONIDAZOLE 500 MG TABLET NG ONE (15:00)
[2017-01-02] MEDS: METRONIDAZOLE 500 MG TABLET NG SCH (21:18)
[2017-01-02] MEDS: LORAZEPAM INJ 2 MG/1 ML VIAL IV PRN (21:18)
[2017-01-02] MEDS: CARVEDILOL 12.5 MG TABLET PO SCH (21:19)
[2017-01-03] MEDS: PROPOFOL 100 ML IV PRN ×2 (00:05→02:43)
[2017-01-03] MEDS: PIPERACILLIN SODIUM/TAZOBACTAM 4.5 GM in NORMAL SALINE 100 ML IV SCH ×2 (02:11→08:00)
[2017-01-03] MEDS: IPRATROPIUM/ALBUTEROL 0.5-2.5 MG/3 ML AMPUL NEB SCH (02:18)
[2017-01-03] MEDS: MIDAZOLAM HCL 100 ML IV PRN (02:44)
[2017-01-03 04:59] LABS: ABSOLUTE EOSINOPHILS # (AUTO) 0.2 10^3/uL (0.0-0.6); ABSOLUTE LYMPHOCYTES (AUTO) 0.9 10^3/uL (0.5-4.7); ABSOLUTE MONOCYTES (AUTO) 0.4 10^3/uL (0.1-1.4); ABSOLUTE NEUT (AUTO) 4.4 10^3/uL (1.7-8.2); BASOPHILS % (AUTO) 0.8 % (0-2); EOSINOPHILS % (AUTO) 3.1 % (0-6); HEMATOCRIT 37.1 % (37.9-51.0); HEMOGLOBIN 12.5 g/dL (13.5-17.0); HGB HCT DIFFERENCE 0.4; MEAN CORPUSCULAR HGB CONC 33.7 g/dL (32.0-36.0); MEAN CORPUSCULAR VOLUME 86 fl (80-97); MONOCYTES % (AUTO) 6.9 % (3-13); RED BLOOD COUNT 4.31 10^6/uL (4.35-5.55); RED CELL DISTRIBUTION WIDTH 16.6 % (11.5-14.0); SEGMENTED NEUTROPHILS % (AUTO) 74.2 % (42-78); WHITE BLOOD COUNT 5.9 10^3/uL (4.0-10.5)
[2017-01-03 05:07] LABS: ARTERIAL BLOOD BASE EXCESS -2.5 mmol/L; ARTERIAL BLOOD O2 SATURATION 95.4 % (94-98)
[2017-01-03] MEDS: LANSOPRAZOLE 30 MG TAB.RAP.DR PO SCH ×2 (05:14→16:59)
[2017-01-03] MEDS: SUCRALFATE SUSP 1 GM/10 ML UDCUP NG SCH (05:14)
[2017-01-03] MEDS: METRONIDAZOLE 500 MG TABLET NG SCH (05:14)
[2017-01-03 05:27] LABS: ANION GAP 8 (5-19); BLOOD UREA NITROGEN 11 mg/dL (7-20); CALCIUM 8.2 mg/dL (8.4-10.2); CARBON DIOXIDE 22 mmol/L (22-30); CHLORIDE 110 mmol/L (98-107); CREATININE RESULT 0.66 mg/dL (0.52-1.25); GLUCOSE 110 mg/dL (75-110); POTASSIUM 3.5 mmol/L (3.6-5.0); SODIUM 140.1 mmol/L (137-145); TRIGLYCERIDES 273 mg/dL (<150)
[2017-01-03] MEDS ORDERED: POTASSI CL 20 MEQ/50 ML RIDER 50 ML IV ONE (07:22)
[2017-01-03] MEDS ORDERED: POTASSI CL 20 MEQ/NS 1L 1,000 ML IV PRN (07:23)
--- NOTE | 2017-01-03 07:39 | RADIOLOGY REPORT (SQ) ---
EXAM DESCRIPTION: CHEST SINGLE VIEW COMPLETED DATE/TIME: 01/03/2017 6:52 am REASON FOR STUDY: resp failure COMPARISON: 01/02/2017. EXAM PARAMETERS: NUMBER OF VIEWS: One view. TECHNIQUE: Single frontal radiographic view of the chest acquired. RADIATION DOSE: NA LIMITATIONS: None. FINDINGS: LUNGS AND PLEURA: Moderate streakiness of the right lower lobe slight patchiness of the le ft lower lobe. Moderate lung volumes. MEDIASTINUM AND HILAR STRUCTURES: No masses. Contour normal. HEART AND VASCULAR STRUCTURES: Mild cardiac enlargement. BONES: No acute findings. HARDWARE: Adequate appearing endotracheal tube and nasogastric tube partially imaged. Right subclavi an central line tip at the inferior right atrium ; consider 10 cm retraction. OTHER: No other significant finding. IMPRESSION: No significant interval change right lower lobar patchiness.Right subclavian central karen e tip at the inferior right atrium ; consider 10 cm retraction. TECHNICAL DOCUMENTATION: JOB ID: [id number]
[2017-01-03] MEDS: CALCIUM CARBONATE 500 MG TAB.CHEW PO SCH ×4 (07:47→21:17)
[2017-01-03] MEDS: THIAMINE HCL 100 MG, FOLIC ACID 1 MG in NORMAL SALINE 50 ML IV SCH (09:13)
[2017-01-03] MEDS: CARVEDILOL 12.5 MG TABLET PO SCH ×2 (09:13→21:18)
[2017-01-03] MEDS: LORAZEPAM INJ 2 MG/1 ML VIAL IV PRN ×4 (09:16→21:18)
[2017-01-03] MEDS: LISINOPRIL 10 MG TABLET NG SCH (09:16)
[2017-01-03] MEDS ORDERED: ACETAMINOPHEN 325 MG TABLET PO PRN (12:01)
[2017-01-03] MEDS ORDERED: OLANZAPINE INJ/PF 10 MG SDV IM ONE (12:02)
--- NOTE | 2017-01-03 12:10 | PDOC PROGRESS REPORT ---
Subjective Progress Note for:: 01/03/17 Subjective:: Patient has been very agitated after extubation today. He does not seem to respond to IV Ativan. Physical Exam Vital Signs: Temp Pulse Resp BP Pulse Ox 98.8 F 97 23 H 182/116 H 93 01/03/17 10:00 01/03/17 08:20 01/03/17 10:00 01/03/17 09:25 01/03/17 11:27 Intake & Output 01/02/17 01/03/17 01/04/17 06:59 06:59 06:59 Intake Total 4901 3405 Output Total 7645 5340 900 Balance -4381 -4955 -900 Weight 86.8 kg 82.3 kg GENERAL: No acute distress HEENT: Conjunctiva clear, nonicteric, moist mucous membranes, no JVD, midline trachea RESPIRATORY: Clear to auscultation bilaterally, no wheezes, no rhonchi CARDIAC: Regular rate and rhythm, no murmurs/gallops/rubs ABDOMEN: Soft, nondistended, nontender, positive bowel sounds, no rebound, no guarding EXTREMETIES: No edema, cyanosis, clubbing NEUROLOGIC: Alert, oriented to person/place/time, CN's grossly intact, no focal deficits SKIN: No rash, wounds PSYCH: Agitated Results Laboratory Results: 01/03/17 04:35 01/03/17 04:35 01/03/17 01/03/17 01/03/17 04:35 04:35 04:35 WBC 5.9 RBC 4.31 L Hgb 12.5 L Hct 37.1 L MCV 86 MCH 29.0 MCHC 33.7 RDW 16.6 H Plt Count 160 Seg Neutrophils % 74.2 Lymphocytes % 15.0 Monocytes % 6.9 Eosinophils % 3.1 Basophils % 0.8 Absolute Neutrophils 4.4 Absolute Lymphocytes 0.9 Absolute Monocytes 0.4 Absolute Eosinophils 0.2 Absolute Basophils 0.0 Carbonic Acid 0.94 L HCO3/H2CO3 Ratio 22:1 ABG pH 7.44 ABG pCO2 31.2 L ABG pO2 73.3 L ABG HCO3 20.7 ABG O2 Saturation 95.4 ABG Base Excess -2.5 FiO2 30% Sodium 140.1 Potassium 3.5 L Chloride 110 H Carbon Dioxide 22 Anion Gap 8 BUN 11 Creatinine 0.66 Est GFR ( Amer) > 60 Est GFR (Non-Af Amer) > 60 Glucose 110 Calcium 8.2 L Magnesium 2.0 Triglycerides 273 H 12/30/16 13:45 Tracheal Aspirate Gram Stain - Final 12/30/16 13:45 Tracheal Aspirate Sputum Culture - Final Staphylococcus Aureus Normal Stacie Absent 12/30/16 12/30/16 12/30/16 06:48 06:48 08:24 Creatine Kinase 449 H CK-MB (CK-2) Cancelled 4.09 Troponin I Cancelled < 0.012 12/30/16 12/30/16 12/30/16 08:24 14:50 14:50 Creatine Kinase 470 H 411 H CK-MB (CK-2) 3.39 Troponin I 0.014 12/30/16 12/30/16 21:00 21:00 Creatine Kinase 405 H CK-MB (CK-2) 3.39 Troponin I < 0.012 Impressions: KUB X-Ray 01/01/17 00:00 IMPRESSION: NG tube appears to be adequate position. Chest X-Ray 01/03/17 06:00 IMPRESSION: No significant interval change right lower lobar patchiness.Right subclavian central line tip at the inferior right atrium ; consider 10 cm retraction. Assessment & Plan - Diagnosis (1) Acute respiratory failure with hypoxia Is this a current diagnosis for this admission?: YesPlan: Currently stable post extubation today. Dr. Whittington of pulmonary medicine following. (2) Aspiration pneumonia Qualifiers: Laterality: right Lung location: lower lobe of lung Is this a current diagnosis for this admission?: YesPlan: Discontinue Zosyn. Start Augmentin. Sputum culture growing methicillin sensitive staph aureus (3) Sepsis Is this a current diagnosis for this admission?: Yes (4) Alcohol abuse Is this a current diagnosis for this admission?: YesPlan: Continue thiamine. Continue as needed Ativan for agitation. (5) Gastritis with hemorrhage Qualifiers: Gastritis type: alcoholic Chronicity: acute Qualified Code(s): K29.21 - Alcoholic gastritis with bleeding Is this a current diagnosis for this admission?: YesPlan: Continue Prevacid. EGD showed esophagitis. (6) Narcotic overdose Qualifiers: Encounter type: initial encounter Injury intent: undetermined intent Qualified Code(s): T40.604A - Poisoning by unspecified narcotics, undetermined, initial encounter Is this a current diagnosis for this admission?: YesPlan: Psychology to evaluate. Continue involuntary commitment. (7) Hypocalcemia Is this a current diagnosis for this admission?: Yes (8) Thrombocytopenia Is this a current diagnosis for this admission?: YesPlan: Resolved. Secondary to alcohol abuse and sepsis. (9) Malnutrition Is this a current diagnosis for this admission?: Yes (10) Acute systolic (congestive) heart failure Is this a current diagnosis for this admission?: YesPlan: Discontinue IV fluids. Patient was given 1 dose of IV Lasix on 01/01/2017. Echocardiogram showed EF 40%. 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 Continue Coreg 25 mg twice daily. Continue lisinopril. (11) C. difficile colitis Is this a current diagnosis for this admission?: YesPlan: Continue Flagyl until 01/17/2017. (12) Hypokalemia Is this a current diagnosis for this admission?: YesPlan: Replace as needed. - Time Time Spent with patient: 35 or more minutes
[2017-01-03] MEDS: METRONIDAZOLE 500 MG TABLET PO SCH ×2 (13:08→21:17)
[2017-01-03] MEDS: METOPROLOL TARTRATE PF/INJ 5 MG/5 ML SDV IV PRN ×2 (13:53→21:18)
[2017-01-03] MEDS: AMOXICILLIN TR/POT CLAVULANATE 500-125 MG TAB PO SCH ×2 (13:58→21:18)
[2017-01-03] MEDS ORDERED: LORAZEPAM INJ 2 MG/1 ML VIAL ONE (17:00)
[2017-01-03] MEDS: SUCRALFATE SUSP 1 GM/10 ML UDCUP PO SCH ×2 (17:01→23:55)
[2017-01-03] MEDS: LACTOBACILLUS ACIDOPHILUS 250 MG TAB PO SCH (17:01)
[2017-01-03] MEDS: OLANZAPINE 5 MG TABLET PO SCH (21:17)
[2017-01-03] MEDS ORDERED: LORAZEPAM INJ 2 MG/1 ML VIAL IV PRN ×4 (21:21→23:07)
[2017-01-03] MEDS ORDERED: CLONIDINE HCL 0.1 MG TABLET PO PRN (21:27)
[2017-01-03] MEDS ORDERED: CLONIDINE HCL 0.1 MG TABLET ONE (21:39)
[2017-01-04] MEDS: LORAZEPAM INJ 2 MG/1 ML VIAL IV PRN ×3 (00:08→21:07)
[2017-01-04] MEDS: SUCRALFATE SUSP 1 GM/10 ML UDCUP PO SCH ×3 (05:23→17:54)
[2017-01-04] MEDS: AMOXICILLIN TR/POT CLAVULANATE 500-125 MG TAB PO SCH (05:23)
[2017-01-04] MEDS: METRONIDAZOLE 500 MG TABLET PO SCH ×3 (05:23→21:06)
[2017-01-04] MEDS: LANSOPRAZOLE 30 MG TAB.RAP.DR PO SCH ×2 (05:23→17:54)
[2017-01-04 06:27] LABS: BLOOD UREA NITROGEN 15 mg/dL (7-20); CHLORIDE 107 mmol/L (98-107); CREATININE RESULT 0.68 mg/dL (0.52-1.25); GLUCOSE 75 mg/dL (75-110); MAGNESIUM 1.8 mg/dL (1.6-2.3)
[2017-01-04 06:39] LABS: CARBON DIOXIDE 14 mmol/L (22-30); POTASSIUM 3.9 mmol/L (3.6-5.0); SODIUM 141.5 mmol/L (137-145)
[2017-01-04 06:42] LABS: ANION GAP 21 (5-19)
[2017-01-04 06:48] LABS: HEMATOCRIT 44.1 % (37.9-51.0); HEMOGLOBIN 14.3 g/dL (13.5-17.0); HGB HCT DIFFERENCE -1.2; MEAN CORPUSCULAR HGB CONC 32.4 g/dL (32.0-36.0); MEAN CORPUSCULAR VOLUME 86 fl (80-97); RED BLOOD COUNT 5.11 10^6/uL (4.35-5.55); RED CELL DISTRIBUTION WIDTH 16.3 % (11.5-14.0)
[2017-01-04 06:49] LABS: WHITE BLOOD COUNT 12.7 10^3/uL (4.0-10.5)
[2017-01-04 06:55] LABS: BASOPHILS % (MANUAL) 0 % (0-2); EOSINOPHILS % (MANUAL) 0 % (0-6); LYMPHOCYTES % (MANUAL) 10 % (13-45); TOTAL CELLS COUNTED 100
[2017-01-04 06:59] LABS: RBC MORPHOLOGY COMMENT NORMO-CYTIC/CHROMIC
[2017-01-04] MEDS: CALCIUM CARBONATE 500 MG TAB.CHEW PO SCH ×4 (07:47→21:07)
[2017-01-04] MEDS ORDERED: VANCOMYCIN HCL 0 MG in DEXTROSE 5%-WATER 250 ML IV NR (08:00)
[2017-01-04] MEDS ORDERED: CEFEPIME 1 GM/D5W RTU 50 ML IV SCH (08:00)
[2017-01-04 09:06] LABS: APPEARANCE,URINE CLEAR; BILIRUBIN,URINE NEGATIVE (NEGATIVE); GLUCOSE, URINE NEGATIVE (NEGATIVE); KETONES,URINE 80 mg/dL (NEGATIVE); LEUKOCYTE ESTERASE,URINE NEGATIVE (NEGATIVE); NITRITE,URINE NEGATIVE (NEGATIVE); PROTEIN,URINE 30 mg/dL (NEGATIVE); UROBILINOGEN,URINE NEGATIVE mg/dL (<2.0)
[2017-01-04] MEDS ORDERED: CEFEPIME HCL 1 GM in DEXTROSE 5%-WATER 50 ML IV SCH (10:00)
[2017-01-04] MEDS ORDERED: LISINOPRIL 10 MG TABLET PO SCH (10:00)
--- NOTE | 2017-01-04 10:03 | RADIOLOGY REPORT (SQ) ---
EXAM DESCRIPTION: CHEST SINGLE VIEW COMPLETED DATE/TIME: 01/04/2017 9:49 am REASON FOR STUDY: fever COMPARISON: Chest films 01/03/2017, 01/01/2017, 12/30/2016 EXAM PARAMETERS: NUMBER OF VIEWS: One view. TECHNIQUE: Single frontal radiographic view of the chest acquired. RADIATION DOSE: NA LIMITATIONS: None. FINDINGS: LUNGS AND PLEURA: No opacities, masses or pneumothorax. No pleural effusion. MEDIASTINUM AND HILAR STRUCTURES: No masses. Contour normal. HEART AND VASCULAR STRUCTURES: Heart normal in size. Normal vasculature. BONES: No acute findings. HARDWARE: Right subclavian triple lumen catheter tip in the right atrium OTHER: No other significant finding. IMPRESSION: NO ACUTE RADIOGRAPHIC FINDING IN THE CHEST. TECHNICAL DOCUMENTATION: JOB ID: [id number]
[2017-01-04] MEDS: LACTOBACILLUS ACIDOPHILUS 250 MG TAB PO SCH ×2 (10:22→17:54)
[2017-01-04] MEDS: LISINOPRIL 10 MG TABLET PO SCH (10:23)
[2017-01-04] MEDS: CARVEDILOL 12.5 MG TABLET PO SCH ×2 (10:23→21:06)
[2017-01-04] MEDS: THIAMINE HCL 100 MG TABLET PO SCH (10:25)
[2017-01-04] MEDS: VANCOMYCIN HCL INJ 500 MG VIAL PO SCH ×2 (12:59→17:54)
--- NOTE | 2017-01-04 13:09 | PDOC PROGRESS REPORT ---
Subjective Progress Note for:: 01/03/17 Subjective:: awake 24 hrs s/p extubation agitated resp stable Physical Exam Vital Signs: Temp Pulse Resp BP Pulse Ox 96.1 F L 97 30 H 176/102 H 94 01/03/17 07:24 01/03/17 08:20 01/03/17 08:20 01/03/17 08:20 01/03/17 08:20 Intake & Output 01/02/17 01/03/17 01/04/17 06:59 06:59 06:59 Intake Total 490 3405 Output Total 7608 5308 Balance -0892 -8019 Weight 86.8 kg 82.3 kg General appearance: PRESENT: disheveled, well-developed, well-nourished Head exam: PRESENT: atraumatic, normocephalic Eye exam: PRESENT: conjunctiva pale, EOMI Mouth exam: PRESENT: moist, neck supple Neck exam: ABSENT: carotid bruit, JVD, lymphadenopathy, thyromegaly Respiratory exam: PRESENT: prolonged expiratory phas, rhonchi, symmetrical Cardiovascular exam: PRESENT: RRR, +S1, +S2 Pulses: PRESENT: normal radial pulses GI/Abdominal exam: PRESENT: normal bowel sounds, soft. ABSENT: distended, guarding, mass, organolmegaly, rebound, tenderness Rectal exam: PRESENT: deferred Gentrourinary exam: PRESENT: indwelling catheter Musculoskeletal exam: PRESENT: normal inspection Neurological exam: PRESENT: awake Psychiatric exam: PRESENT: agitated Focused psych exam: PRESENT: psychomotor agitation, restlessness Skin exam: PRESENT: dry, warm Results Laboratory Results: 01/03/17 04:35 01/03/17 04:35 01/03/17 01/03/17 01/03/17 04:35 04:35 04:35 WBC 5.9 RBC 4.31 L Hgb 12.5 L Hct 37.1 L MCV 86 MCH 29.0 MCHC 33.7 RDW 16.6 H Plt Count 160 Seg Neutrophils % 74.2 Lymphocytes % 15.0 Monocytes % 6.9 Eosinophils % 3.1 Basophils % 0.8 Absolute Neutrophils 4.4 Absolute Lymphocytes 0.9 Absolute Monocytes 0.4 Absolute Eosinophils 0.2 Absolute Basophils 0.0 Carbonic Acid 0.94 L HCO3/H2CO3 Ratio 22:1 ABG pH 7.44 ABG pCO2 31.2 L ABG pO2 73.3 L ABG HCO3 20.7 ABG O2 Saturation 95.4 ABG Base Excess -2.5 FiO2 30% Sodium 140.1 Potassium 3.5 L Chloride 110 H Carbon Dioxide 22 Anion Gap 8 BUN 11 Creatinine 0.66 Est GFR ( Amer) > 60 Est GFR (Non-Af Amer) > 60 Glucose 110 Calcium 8.2 L Magnesium 2.0 Triglycerides 273 H 12/30/16 13:45 Tracheal Aspirate Gram Stain - Final 12/30/16 12/30/16 12/30/16 06:48 06:48 08:24 Creatine Kinase 449 H CK-MB (CK-2) Cancelled 4.09 Troponin I Cancelled < 0.012 12/30/16 12/30/16 12/30/16 08:24 14:50 14:50 Creatine Kinase 470 H 411 H CK-MB (CK-2) 3.39 Troponin I 0.014 12/30/16 12/30/16 21:00 21:00 Creatine Kinase 405 H CK-MB (CK-2) 3.39 Troponin I < 0.012 Impressions: KUB X-Ray 01/01/17 00:00 IMPRESSION: NG tube appears to be adequate position. Chest X-Ray 01/03/17 06:00 IMPRESSION: No significant interval change right lower lobar patchiness.Right subclavian central line tip at the inferior right atrium ; consider 10 cm retraction. Assessment & Plan - Diagnosis (1) Acute respiratory failure with hypoxia Is this a current diagnosis for this admission?: No (2) Alcohol abuse Is this a current diagnosis for this admission?: YesPlan: DT's ? W-K syndrome? (3) Aspiration pneumonia Qualifiers: Laterality: right Lung location: lower lobe of lung Is this a current diagnosis for this admission?: No (4) Gastritis with hemorrhage Qualifiers: Gastritis type: alcoholic Chronicity: acute Qualified Code(s): K29.21 - Alcoholic gastritis with bleeding Is this a current diagnosis for this admission?: Yes (5) Narcotic overdose Qualifiers: Encounter type: initial encounter Injury intent: undetermined intent Qualified Code(s): T40.604A - Poisoning by unspecified narcotics, undetermined, initial encounter Is this a current diagnosis for this admission?: No (6) Hypophosphatemia Is this a current diagnosis for this admission?: No (7) Hypocalcemia Is this a current diagnosis for this admission?: No - Time Critical Time spent with patient: 25-34 minutes
--- NOTE | 2017-01-04 13:19 | PDOC PROGRESS REPORT ---
Subjective Progress Note for:: 01/04/17 Subjective:: awake,agitated Physical Exam Vital Signs: Temp Pulse Resp BP Pulse Ox 100.8 F H 108 H 30 H 162/99 H 82 L 01/04/17 06:00 01/04/17 07:10 01/04/17 06:00 01/04/17 05:39 01/04/17 05:00 Intake & Output 01/03/17 01/04/17 01/05/17 06:59 06:59 06:59 Intake Total 3405 1236 Output Total 5378 5600 Balance -9565 -5803 Weight 82.3 kg 76.3 kg General appearance: PRESENT: disheveled, well-developed, well-nourished Head exam: PRESENT: atraumatic, normocephalic Eye exam: PRESENT: conjunctiva pale, EOMI Mouth exam: PRESENT: dry mucosa, neck supple Neck exam: ABSENT: carotid bruit, JVD, lymphadenopathy, thyromegaly Respiratory exam: PRESENT: prolonged expiratory phas, rhonchi, symmetrical Cardiovascular exam: PRESENT: RRR, +S1, +S2 Pulses: PRESENT: normal radial pulses GI/Abdominal exam: PRESENT: normal bowel sounds, soft. ABSENT: distended, guarding, mass, organolmegaly, rebound, tenderness Rectal exam: PRESENT: deferred Gentrourinary exam: PRESENT: indwelling catheter Musculoskeletal exam: PRESENT: normal inspection Neurological exam: PRESENT: altered, awake Psychiatric exam: PRESENT: agitated, anxious Skin exam: PRESENT: dry, warm Results Laboratory Results: 01/04/17 05:45 01/04/17 05:45 01/04/17 01/04/17 05:45 05:45 WBC 12.7 H D RBC 5.11 Hgb 14.3 Hct 44.1 MCV 86 MCH 28.0 MCHC 32.4 RDW 16.3 H Plt Count 206 Seg Neutrophils % Not Reportable Lymphocytes % Not Reportable Monocytes % Not Reportable Eosinophils % Not Reportable Basophils % Not Reportable Absolute Neutrophils Not Reportable Absolute Lymphocytes Not Reportable Absolute Monocytes Not Reportable Absolute Eosinophils Not Reportable Absolute Basophils Not Reportable Sodium 141.5 Potassium 3.9 Chloride 107 Carbon Dioxide 14 L Anion Gap 21 H BUN 15 Creatinine 0.68 Est GFR ( Amer) > 60 Est GFR (Non-Af Amer) > 60 Glucose 75 Calcium 9.0 Magnesium 1.8 06/12/17 13:45 Tracheal Aspirate Gram Stain - Final 12/30/16 13:45 Tracheal Aspirate Sputum Culture - Final Staphylococcus Aureus Normal Stacie Absent 12/30/16 12/30/16 12/30/16 06:48 06:48 08:24 Creatine Kinase 449 H CK-MB (CK-2) Cancelled 4.09 Troponin I Cancelled < 0.012 12/30/16 12/30/16 12/30/16 08:24 14:50 14:50 Creatine Kinase 470 H 411 H CK-MB (CK-2) 3.39 Troponin I 0.014 12/30/16 12/30/16 21:00 21:00 Creatine Kinase 405 H CK-MB (CK-2) 3.39 Troponin I < 0.012 Impressions: KUB X-Ray 01/01/17 00:00 IMPRESSION: NG tube appears to be adequate position. Chest X-Ray 01/03/17 06:00 IMPRESSION: No significant interval change right lower lobar patchiness.Right subclavian central line tip at the inferior right atrium ; consider 10 cm retraction. Assessment & Plan - Diagnosis (1) Acute respiratory failure with hypoxia Is this a current diagnosis for this admission?: No (2) Alcohol abuse Is this a current diagnosis for this admission?: Yes (3) Aspiration pneumonia Qualifiers: Laterality: right Lung location: lower lobe of lung Is this a current diagnosis for this admission?: No (4) Gastritis with hemorrhage Qualifiers: Gastritis type: alcoholic Chronicity: acute Qualified Code(s): K29.21 - Alcoholic gastritis with bleeding Is this a current diagnosis for this admission?: Yes (5) Narcotic overdose Qualifiers: Encounter type: initial encounter Injury intent: undetermined intent Qualified Code(s): T40.604A - Poisoning by unspecified narcotics, undetermined, initial encounter Is this a current diagnosis for this admission?: Yes (6) Hypophosphatemia Is this a current diagnosis for this admission?: No (7) Hypocalcemia Is this a current diagnosis for this admission?: No - Time Critical Time spent with patient: 25-34 minutes - a-g met acidosis discussed with Dr Durham
--- NOTE | 2017-01-04 13:40 | PDOC PROGRESS REPORT ---
Subjective Progress Note for:: 01/04/17 Subjective:: Patient has continued agitation. He has been having high fevers over the past 24 hours. He is somewhat somnolent during my evaluation but is oriented to person, place, time. Physical Exam Vital Signs: Temp Pulse Resp BP Pulse Ox 99.7 F 108 H 26 H 158/96 H 100 01/04/17 11:39 01/04/17 07:10 01/04/17 11:39 01/04/17 11:39 01/04/17 11:39 Intake & Output 01/03/17 01/04/17 01/05/17 06:59 06:59 06:59 Intake Total 3405 1236 Output Total 5379 5686 425 Balance -1935 -4414 -425 Weight 82.3 kg 76.3 kg GENERAL: No acute distress HEENT: Conjunctiva clear, nonicteric, moist mucous membranes, no JVD, midline trachea RESPIRATORY: Clear to auscultation bilaterally, no wheezes, no rhonchi CARDIAC: Regular rate and rhythm, no murmurs/gallops/rubs ABDOMEN: Soft, nondistended, nontender, positive bowel sounds, no rebound, no guarding EXTREMETIES: No edema, cyanosis, clubbing NEUROLOGIC: Somnolent, oriented to person/place/time, CN's grossly intact, no focal deficits SKIN: No rash, wounds PSYCH: Somnolent Results Laboratory Results: 01/04/17 05:45 01/04/17 05:45 01/04/17 01/04/17 01/04/17 05:45 05:45 08:25 WBC 12.7 H D RBC 5.11 Hgb 14.3 Hct 44.1 MCV 86 MCH 28.0 MCHC 32.4 RDW 16.3 H Plt Count 206 Seg Neutrophils % Not Reportable Lymphocytes % Not Reportable Monocytes % Not Reportable Eosinophils % Not Reportable Basophils % Not Reportable Absolute Neutrophils Not Reportable Absolute Lymphocytes Not Reportable Absolute Monocytes Not Reportable Absolute Eosinophils Not Reportable Absolute Basophils Not Reportable Sodium 141.5 Potassium 3.9 Chloride 107 Carbon Dioxide 14 L Anion Gap 21 H BUN 15 Creatinine 0.68 Est GFR ( Amer) > 60 Est GFR (Non-Af Amer) > 60 Glucose 75 Calcium 9.0 Magnesium 1.8 Urine Color YELLOW Urine Appearance CLEAR Urine pH 5.0 Ur Specific [place] 1.020 Urine Protein 30 H Urine Glucose (UA) NEGATIVE Urine Ketones 80 H Urine Blood SMALL H Urine Nitrite NEGATIVE Ur Leukocyte Esterase NEGATIVE Urine WBC (Auto) 1 Urine RBC (Auto) 67 12/30/16 09:45 Blood Blood Culture - Final NO GROWTH IN 5 DAYS 12/30/16 08:24 Blood Blood Culture - Final NO GROWTH IN 5 DAYS 12/30/16 13:45 Tracheal Aspirate Gram Stain - Final 12/30/16 13:45 Tracheal Aspirate Sputum Culture - Final Staphylococcus Aureus Normal Stacie Absent 12/30/16 12/30/16 12/30/16 06:48 06:48 08:24 Creatine Kinase 449 H CK-MB (CK-2) Cancelled 4.09 Troponin I Cancelled < 0.012 12/30/16 12/30/16 12/30/16 08:24 14:50 14:50 Creatine Kinase 470 H 411 H CK-MB (CK-2) 3.39 Troponin I 0.014 12/30/16 12/30/16 21:00 21:00 Creatine Kinase 405 H CK-MB (CK-2) 3.39 Troponin I < 0.012 Impressions: KUB X-Ray 01/01/17 00:00 IMPRESSION: NG tube appears to be adequate position. Chest X-Ray 01/04/17 07:49 IMPRESSION: NO ACUTE RADIOGRAPHIC FINDING IN THE CHEST. Assessment & Plan - Diagnosis (1) Acute respiratory failure with hypoxia Is this a current diagnosis for this admission?: NoPlan: Currently stable post extubation on 01/03/2017. Dr. Whittington of pulmonary medicine following. (2) Aspiration pneumonia Qualifiers: Laterality: right Lung location: lower lobe of lung Is this a current diagnosis for this admission?: NoPlan: Doxycycline. Sputum culture growing methicillin sensitive staph aureus sensitive to doxycycline. (3) Sepsis Is this a current diagnosis for this admission?: YesPlan: Patient has recurrence of high fevers. Chest x-ray is negative. Urinalysis is negative. This may be secondary to C. difficile that is refractory to metronidazole. (4) Alcohol abuse Is this a current diagnosis for this admission?: YesPlan: Continue thiamine. Continue as needed Ativan for agitation. (5) Gastritis with hemorrhage Qualifiers: Gastritis type: alcoholic Chronicity: acute Qualified Code(s): K29.21 - Alcoholic gastritis with bleeding Is this a current diagnosis for this admission?: YesPlan: Continue Prevacid. EGD showed esophagitis. (6) Narcotic overdose Qualifiers: Encounter type: initial encounter Injury intent: undetermined intent Qualified Code(s): T40.604A - Poisoning by unspecified narcotics, undetermined, initial encounter Is this a current diagnosis for this admission?: YesPlan: Psychology to evaluate. Continue involuntary commitment. (7) Hypocalcemia Is this a current diagnosis for this admission?: NoPlan: Replace as needed. (8) Thrombocytopenia Is this a current diagnosis for this admission?: YesPlan: Resolved. Secondary to alcohol abuse and sepsis. (9) Malnutrition Is this a current diagnosis for this admission?: Yes (10) Acute systolic (congestive) heart failure Is this a current diagnosis for this admission?: YesPlan: Patient was given 1 dose of IV Lasix on 01/01/2017. Echocardiogram showed EF 40% . 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 Continue Coreg 25 mg twice daily. Continue lisinopril. (11) C. difficile colitis Is this a current diagnosis for this admission?: YesPlan: Continue Flagyl until 01/17/2017. Start oral vancomycin. (12) Hypokalemia Is this a current diagnosis for this admission?: Yes - Time Time Spent with patient: 35 or more minutes
[2017-01-04] MEDS ORDERED: VANCOMYCIN HCL 1,250 MG in DEXTROSE 5%-WATER 250 ML IV SCH (14:00)
[2017-01-04] MEDS: ONDANSETRON HCL INJ/PF 4 MG/2 ML SDV IV PRN (14:18)
[2017-01-04] MEDS ORDERED: ALTEPLASE INJ 2 MG VIAL (CATH CLEARANCE) IV ONE (19:15)
[2017-01-04] MEDS: DOXYCYCLINE HYCLATE 100 MG TABLET PO SCH (21:06)
[2017-01-04] MEDS: OLANZAPINE 5 MG TABLET PO SCH (21:06)
[2017-01-05] MEDS: SUCRALFATE SUSP 1 GM/10 ML UDCUP PO SCH ×5 (01:36→22:53)
[2017-01-05] MEDS: VANCOMYCIN HCL INJ 500 MG VIAL PO SCH ×5 (01:36→22:52)
[2017-01-05] MEDS: LANSOPRAZOLE 30 MG TAB.RAP.DR PO SCH ×2 (06:31→17:37)
[2017-01-05] MEDS: METRONIDAZOLE 500 MG TABLET PO SCH (06:31)
[2017-01-05 08:11] LABS: ARTERIAL BLOOD BASE EXCESS -2.6 mmol/L; ARTERIAL BLOOD O2 SATURATION 94.6 % (94-98)
[2017-01-05 08:19] LABS: HEMOGLOBIN 15.5 g/dL (13.5-17.0); HGB HCT DIFFERENCE 0.5; MEAN CORPUSCULAR HEMOGLOBIN 28.6 pg (27.0-33.4); MEAN CORPUSCULAR HGB CONC 33.7 g/dL (32.0-36.0); MEAN CORPUSCULAR VOLUME 85 fl (80-97); RED BLOOD COUNT 5.42 10^6/uL (4.35-5.55); RED CELL DISTRIBUTION WIDTH 16.2 % (11.5-14.0); WHITE BLOOD COUNT 9.6 10^3/uL (4.0-10.5)
[2017-01-05 08:28] LABS: ANION GAP 16 (5-19); BLOOD UREA NITROGEN 21 mg/dL (7-20); CALCIUM 9.2 mg/dL (8.4-10.2); CARBON DIOXIDE 19 mmol/L (22-30); CHLORIDE 106 mmol/L (98-107); CREATININE RESULT 0.68 mg/dL (0.52-1.25); GLUCOSE 97 mg/dL (75-110); SODIUM 140.6 mmol/L (137-145)
[2017-01-05 08:49] LABS: BASOPHILS % (MANUAL) 0 % (0-2); EOSINOPHILS % (MANUAL) 0 % (0-6); LYMPHOCYTES % (MANUAL) 18 % (13-45); TOTAL CELLS COUNTED 100
[2017-01-05 08:50] LABS: ANISOCYTOSIS SLIGHT
[2017-01-05] MEDS: LISINOPRIL 10 MG TABLET PO SCH (09:15)
[2017-01-05] MEDS: CARVEDILOL 12.5 MG TABLET PO SCH ×2 (09:15→22:52)
[2017-01-05] MEDS: THIAMINE HCL 100 MG TABLET PO SCH (09:15)
[2017-01-05] MEDS: CLONIDINE HCL 0.1 MG TABLET PO PRN ×2 (09:16→16:00)
[2017-01-05] MEDS: LACTOBACILLUS ACIDOPHILUS 250 MG TAB PO SCH ×2 (09:16→17:38)
[2017-01-05] MEDS: DOXYCYCLINE HYCLATE 100 MG TABLET PO SCH ×2 (09:16→22:52)
[2017-01-05] MEDS: CALCIUM CARBONATE 500 MG TAB.CHEW PO SCH ×4 (09:18→22:52)
[2017-01-05] MEDS: ONDANSETRON HCL INJ/PF 4 MG/2 ML SDV IV PRN (09:18)
[2017-01-05] MEDS: SERTRALINE HCL 50 MG TABLET PO SCH (11:12)
[2017-01-05] MEDS: OXCARBAZEPINE 150 MG TABLET PO SCH ×2 (11:13→22:52)
[2017-01-05] MEDS: LORAZEPAM INJ 2 MG/1 ML VIAL IV PRN ×3 (11:13→16:00)
[2017-01-05] MEDS: QUETIAPINE FUMARATE 100 MG TABLET PO SCH ×3 (14:31→22:52)
--- NOTE | 2017-01-05 15:13 | PDOC PROGRESS REPORT ---
Subjective Progress Note for:: 01/05/17 Subjective:: Patient has no further agitation. He continues to have ongoing hallucinations. Fevers have improved. Physical Exam Vital Signs: Temp Pulse Resp BP Pulse Ox 98.6 F 120 H 28 H 123/82 97 01/05/17 15:00 01/05/17 07:00 01/05/17 15:00 01/05/17 14:31 01/05/17 15:00 Intake & Output 01/04/17 01/05/17 01/06/17 06:59 06:59 06:59 Intake Total 1236 61 120 Output Total 5650 1815 450 Balance -7081 -1754 -507 Weight 76.3 kg GENERAL: No acute distress HEENT: Conjunctiva clear, nonicteric, moist mucous membranes, no JVD, midline trachea RESPIRATORY: Clear to auscultation bilaterally, no wheezes, no rhonchi CARDIAC: Regular rate and rhythm, no murmurs/gallops/rubs ABDOMEN: Soft, nondistended, nontender, positive bowel sounds, no rebound, no guarding EXTREMETIES: No edema, cyanosis, clubbing NEUROLOGIC: Somnolent, mildly confused, CN's grossly intact, no focal deficits SKIN: No rash, wounds PSYCH: Somnolent Results Laboratory Results: 01/05/17 08:00 01/05/17 08:00 01/05/17 01/05/17 01/05/17 08:00 08:00 08:00 WBC 9.6 RBC 5.42 Hgb 15.5 Hct 46.0 MCV 85 MCH 28.6 MCHC 33.7 RDW 16.2 H Plt Count 235 Seg Neutrophils % Not Reportable Lymphocytes % Not Reportable Monocytes % Not Reportable Eosinophils % Not Reportable Basophils % Not Reportable Absolute Neutrophils Not Reportable Absolute Lymphocytes Not Reportable Absolute Monocytes Not Reportable Absolute Eosinophils Not Reportable Absolute Basophils Not Reportable Carbonic Acid 1.01 L HCO3/H2CO3 Ratio 20:1 ABG pH 7.42 ABG pCO2 33.4 L ABG pO2 70.8 L ABG HCO3 21.0 ABG O2 Saturation 94.6 ABG Base Excess -2.6 FiO2 ROOM AIR Sodium 140.6 Potassium 4.0 Chloride 106 Carbon Dioxide 19 L Anion Gap 16 BUN 21 H Creatinine 0.68 Est GFR ( Amer) > 60 Est GFR (Non-Af Amer) > 60 Glucose 97 Lactic Acid Calcium 9.2 Magnesium 2.0 01/05/17 10:15 WBC RBC Hgb Hct MCV MCH MCHC RDW Plt Count Seg Neutrophils % Lymphocytes % Monocytes % Eosinophils % Basophils % Absolute Neutrophils Absolute Lymphocytes Absolute Monocytes Absolute Eosinophils Absolute Basophils Carbonic Acid HCO3/H2CO3 Ratio ABG pH ABG pCO2 ABG pO2 ABG HCO3 ABG O2 Saturation ABG Base Excess FiO2 Sodium Potassium Chloride Carbon Dioxide Anion Gap BUN Creatinine Est GFR ( Amer) Est GFR (Non-Af Amer) Glucose Lactic Acid 0.7 Calcium Magnesium 12/30/16 12/30/16 12/30/16 06:48 06:48 08:24 Creatine Kinase 449 H CK-MB (CK-2) Cancelled 4.09 Troponin I Cancelled < 0.012 12/30/16 12/30/16 12/30/16 08:24 14:50 14:50 Creatine Kinase 470 H 411 H CK-MB (CK-2) 3.39 Troponin I 0.014 12/30/16 12/30/16 21:00 21:00 Creatine Kinase 405 H CK-MB (CK-2) 3.39 Troponin I < 0.012 Impressions: KUB X-Ray 01/01/17 00:00 IMPRESSION: NG tube appears to be adequate position. Chest X-Ray 01/04/17 07:49 IMPRESSION: NO ACUTE RADIOGRAPHIC FINDING IN THE CHEST. Assessment & Plan - Diagnosis (1) Acute respiratory failure with hypoxia Is this a current diagnosis for this admission?: YesPlan: Currently stable post extubation on 01/03/2017. Dr. Whittington of pulmonary medicine following. (2) Aspiration pneumonia Qualifiers: Laterality: right Lung location: lower lobe of lung Is this a current diagnosis for this admission?: YesPlan: Doxycycline. Sputum culture growing methicillin sensitive staph aureus sensitive to doxycycline. (3) Sepsis Is this a current diagnosis for this admission?: YesPlan: Patient has recurrence of high fevers. Chest x-ray is negative. Urinalysis is negative. This may be secondary to C. difficile that is refractory to metronidazole. (4) Alcohol abuse Is this a current diagnosis for this admission?: YesPlan: Continue thiamine. Continue as needed Ativan for agitation. (5) Gastritis with hemorrhage Qualifiers: Gastritis type: alcoholic Chronicity: acute Qualified Code(s): K29.21 - Alcoholic gastritis with bleeding Is this a current diagnosis for this admission?: YesPlan: Continue Prevacid. EGD showed esophagitis. (6) Narcotic overdose Qualifiers: Encounter type: initial encounter Injury intent: undetermined intent Qualified Code(s): T40.604A - Poisoning by unspecified narcotics, undetermined, initial encounter Is this a current diagnosis for this admission?: YesPlan: Psychology to evaluate. Continue involuntary commitment. (7) Hypocalcemia Is this a current diagnosis for this admission?: YesPlan: Replace as needed. (8) Thrombocytopenia Is this a current diagnosis for this admission?: Yes (9) Malnutrition Is this a current diagnosis for this admission?: Yes (10) Acute systolic (congestive) heart failure Is this a current diagnosis for this admission?: YesPlan: Patient was given 1 dose of IV Lasix on 01/01/2017. Echocardiogram showed EF 40% . 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 Continue Coreg 25 mg twice daily. Continue lisinopril. (11) C. difficile colitis Is this a current diagnosis for this admission?: YesPlan: Continue oral vancomycin. (12) Hypokalemia Is this a current diagnosis for this admission?: Yes (13) Hx of traumatic brain injury Is this a current diagnosis for this admission?: YesPlan: Resume home medications. - Time Time Spent with patient: 35 or more minutes
[2017-01-05] MEDS: MIRTAZAPINE 15 MG TABLET PO SCH (22:52)
[2017-01-06] MEDS ORDERED: NORMAL SALINE 1000 ML 500 ML IV ONE (00:22)
[2017-01-06] MEDS: SUCRALFATE SUSP 1 GM/10 ML UDCUP PO SCH ×4 (05:44→23:25)
[2017-01-06] MEDS: LANSOPRAZOLE 30 MG TAB.RAP.DR PO SCH ×2 (05:44→16:48)
[2017-01-06] MEDS: VANCOMYCIN HCL INJ 500 MG VIAL PO SCH ×4 (05:44→23:25)
[2017-01-06] MEDS: QUETIAPINE FUMARATE 100 MG TABLET PO SCH ×4 (05:50→21:24)
[2017-01-06 06:17] LABS: ALANINE AMINOTRANSFERASE 40 U/L (21-72); ALBUMIN 3.2 g/dL (3.5-5.0); ALKALINE PHOSPHATASE 66 U/L (38-126); ANION GAP 12 (5-19); ASPARTATE AMINO TRANSFERASE 32 U/L (17-59); BILIRUBIN,DIRECT 0.3 mg/dL (0.0-0.4); BILIRUBIN,TOTAL 0.8 mg/dL (0.2-1.3); BLOOD UREA NITROGEN 29 mg/dL (7-20); CARBON DIOXIDE 22 mmol/L (22-30); CHLORIDE 107 mmol/L (98-107); GLUCOSE 95 mg/dL (75-110); HEMATOCRIT 42.4 % (37.9-51.0); HGB HCT DIFFERENCE -0.4; MEAN CORPUSCULAR HEMOGLOBIN 28.3 pg (27.0-33.4); MEAN CORPUSCULAR VOLUME 86 fl (80-97); RED BLOOD COUNT 4.94 10^6/uL (4.35-5.55); RED CELL DISTRIBUTION WIDTH 16.2 % (11.5-14.0); SODIUM 140.8 mmol/L (137-145); TOTAL PROTEIN 5.9 g/dL (6.3-8.2); TRIGLYCERIDES 321 mg/dL (<150); WHITE BLOOD COUNT 6.7 10^3/uL (4.0-10.5)
[2017-01-06 06:44] LABS: BASOPHILS % (MANUAL) 2 % (0-2); EOSINOPHILS % (MANUAL) 2 % (0-6); LYMPHOCYTES % (MANUAL) 29 % (13-45); TOTAL CELLS COUNTED 100
[2017-01-06 06:46] LABS: ANISOCYTOSIS SLIGHT; POLYCHROMASIA SLIGHT
[2017-01-06] MEDS ORDERED: CARVEDILOL 12.5 MG TABLET PO SCH (07:32)
[2017-01-06] MEDS ORDERED: LISINOPRIL 10 MG TABLET PO SCH (07:32)
--- NOTE | 2017-01-06 09:48 | PDOC PROGRESS REPORT ---
Subjective Progress Note for:: 01/05/17 Subjective:: awake,agitated Physical Exam Vital Signs: Temp Pulse Resp BP Pulse Ox 99.5 F 114 H 32 H 140/88 H 82 L 01/04/17 22:00 01/04/17 19:00 01/05/17 02:00 01/05/17 01:31 01/04/17 23:39 Intake & Output 01/04/17 01/05/17 01/06/17 06:59 06:59 06:59 Intake Total 1236 61 Output Total 5650 7405 Balance -7217 -8940 Weight 76.3 kg General appearance: PRESENT: mild distress, well-developed, well-nourished Head exam: PRESENT: atraumatic, normocephalic Eye exam: PRESENT: conjunctiva pale, EOMI Mouth exam: PRESENT: moist, neck supple Neck exam: ABSENT: carotid bruit, JVD, lymphadenopathy, thyromegaly Respiratory exam: PRESENT: decreased breath sounds, prolonged expiratory phas, unlabored Cardiovascular exam: PRESENT: RRR, +S1, +S2 Pulses: PRESENT: normal radial pulses GI/Abdominal exam: PRESENT: normal bowel sounds, soft. ABSENT: distended, guarding, mass, organolmegaly, rebound, tenderness Rectal exam: PRESENT: deferred Gentrourinary exam: PRESENT: indwelling catheter Musculoskeletal exam: PRESENT: normal inspection Neurological exam: PRESENT: awake Psychiatric exam: PRESENT: agitated Skin exam: PRESENT: dry, warm Results Laboratory Results: 01/04/17 05:45 01/04/17 05:45 01/04/17 08:25 Urine Color YELLOW Urine Appearance CLEAR Urine pH 5.0 Ur Specific [place] 1.020 Urine Protein 30 H Urine Glucose (UA) NEGATIVE Urine Ketones 80 H Urine Blood SMALL H Urine Nitrite NEGATIVE Ur Leukocyte Esterase NEGATIVE Urine WBC (Auto) 1 Urine RBC (Auto) 67 12/30/16 09:45 Blood Blood Culture - Final NO GROWTH IN 5 DAYS 12/30/16 08:24 Blood Blood Culture - Final NO GROWTH IN 5 DAYS 12/30/16 12/30/16 12/30/16 06:48 06:48 08:24 Creatine Kinase 449 H CK-MB (CK-2) Cancelled 4.09 Troponin I Cancelled < 0.012 06/12/17 06/12/17 06/12/17 08:24 14:50 14:50 Creatine Kinase 470 H 411 H CK-MB (CK-2) 3.39 Troponin I 0.014 12/30/16 12/30/16 21:00 21:00 Creatine Kinase 405 H CK-MB (CK-2) 3.39 Troponin I < 0.012 Impressions: KUB X-Ray 01/01/17 00:00 IMPRESSION: NG tube appears to be adequate position. Chest X-Ray 01/04/17 07:49 IMPRESSION: NO ACUTE RADIOGRAPHIC FINDING IN THE CHEST. Assessment & Plan - Diagnosis (1) Acute respiratory failure with hypoxia Is this a current diagnosis for this admission?: No (2) Alcohol abuse Is this a current diagnosis for this admission?: Yes (3) Aspiration pneumonia Qualifiers: Laterality: right Lung location: lower lobe of lung Is this a current diagnosis for this admission?: No (4) Gastritis with hemorrhage Qualifiers: Gastritis type: alcoholic Chronicity: acute Qualified Code(s): K29.21 - Alcoholic gastritis with bleeding Is this a current diagnosis for this admission?: Yes (5) Narcotic overdose Qualifiers: Encounter type: initial encounter Injury intent: undetermined intent Qualified Code(s): T40.604A - Poisoning by unspecified narcotics, undetermined, initial encounter Is this a current diagnosis for this admission?: Yes (6) Hypophosphatemia Is this a current diagnosis for this admission?: No (7) Hypocalcemia Is this a current diagnosis for this admission?: No - Time Critical Time spent with patient: 35 or more minutes
--- NOTE | 2017-01-06 09:51 | PDOC PROGRESS REPORT ---
Subjective Progress Note for:: 01/06/17 Subjective:: awake,lethargic Physical Exam Vital Signs: Temp Pulse Resp BP Pulse Ox 98.2 F 78 16 96/60 L 96 01/06/17 06:00 01/05/17 19:00 01/06/17 06:00 01/06/17 05:57 01/06/17 06:00 Intake & Output 01/05/17 01/06/17 01/07/17 06:59 06:59 06:59 Intake Total 61 1245 Output Total 1815 950 Balance -1754 295 Weight 75.1 kg General appearance: PRESENT: disheveled, well-developed, well-nourished Head exam: PRESENT: atraumatic, normocephalic Eye exam: PRESENT: conjunctiva pale, EOMI Mouth exam: PRESENT: moist, neck supple Neck exam: ABSENT: carotid bruit, JVD, lymphadenopathy, thyromegaly Respiratory exam: PRESENT: decreased breath sounds, prolonged expiratory phas, symmetrical, unlabored Cardiovascular exam: PRESENT: RRR, +S1, +S2 Pulses: PRESENT: normal radial pulses GI/Abdominal exam: PRESENT: normal bowel sounds, soft. ABSENT: distended, guarding, mass, organolmegaly, rebound, tenderness Rectal exam: PRESENT: deferred Gentrourinary exam: PRESENT: indwelling catheter Musculoskeletal exam: PRESENT: normal inspection Neurological exam: PRESENT: awake Skin exam: PRESENT: dry, warm Results Laboratory Results: 01/06/17 05:30 01/06/17 05:30 01/05/17 01/05/17 01/05/17 08:00 08:00 08:00 WBC 9.6 RBC 5.42 Hgb 15.5 Hct 46.0 MCV 85 MCH 28.6 MCHC 33.7 RDW 16.2 H Plt Count 235 Seg Neutrophils % Not Reportable Lymphocytes % Not Reportable Monocytes % Not Reportable Eosinophils % Not Reportable Basophils % Not Reportable Absolute Neutrophils Not Reportable Absolute Lymphocytes Not Reportable Absolute Monocytes Not Reportable Absolute Eosinophils Not Reportable Absolute Basophils Not Reportable Carbonic Acid 1.01 L HCO3/H2CO3 Ratio 20:1 ABG pH 7.42 ABG pCO2 33.4 L ABG pO2 70.8 L ABG HCO3 21.0 ABG O2 Saturation 94.6 ABG Base Excess -2.6 FiO2 ROOM AIR Sodium 140.6 Potassium 4.0 Chloride 106 Carbon Dioxide 19 L Anion Gap 16 BUN 21 H Creatinine 0.68 Est GFR ( Amer) > 60 Est GFR (Non-Af Amer) > 60 Glucose 97 Lactic Acid Calcium 9.2 Magnesium 2.0 Total Bilirubin AST ALT Alkaline Phosphatase Total Protein Albumin Triglycerides 01/05/17 01/06/17 01/06/17 10:15 05:30 05:30 WBC 6.7 RBC 4.94 Hgb 14.0 Hct 42.4 MCV 86 MCH 28.3 MCHC 33.0 RDW 16.2 H Plt Count 222 Seg Neutrophils % Not Reportable Lymphocytes % Not Reportable Monocytes % Not Reportable Eosinophils % Not Reportable Basophils % Not Reportable Absolute Neutrophils Not Reportable Absolute Lymphocytes Not Reportable Absolute Monocytes Not Reportable Absolute Eosinophils Not Reportable Absolute Basophils Not Reportable Carbonic Acid HCO3/H2CO3 Ratio ABG pH ABG pCO2 ABG pO2 ABG HCO3 ABG O2 Saturation ABG Base Excess FiO2 Sodium 140.8 Potassium 4.0 Chloride 107 Carbon Dioxide 22 Anion Gap 12 BUN 29 H Creatinine 0.90 Est GFR ( Amer) > 60 Est GFR (Non-Af Amer) > 60 Glucose 95 Lactic Acid 0.7 Calcium 9.0 Magnesium Total Bilirubin 0.8 AST 32 ALT 40 Alkaline Phosphatase 66 Total Protein 5.9 L Albumin 3.2 L Triglycerides 321 H 12/30/16 12/30/16 12/30/16 06:48 06:48 08:24 Creatine Kinase 449 H CK-MB (CK-2) Cancelled 4.09 Troponin I Cancelled < 0.012 12/30/16 12/30/16 12/30/16 08:24 14:50 14:50 Creatine Kinase 470 H 411 H CK-MB (CK-2) 3.39 Troponin I 0.014 12/30/16 12/30/16 21:00 21:00 Creatine Kinase 405 H CK-MB (CK-2) 3.39 Troponin I < 0.012 Impressions: KUB X-Ray 01/01/17 00:00 IMPRESSION: NG tube appears to be adequate position. Chest X-Ray 01/04/17 07:49 IMPRESSION: NO ACUTE RADIOGRAPHIC FINDING IN THE CHEST. Assessment & Plan - Diagnosis (1) Acute respiratory failure with hypoxia Is this a current diagnosis for this admission?: No (2) Alcohol abuse Is this a current diagnosis for this admission?: Yes (3) Aspiration pneumonia Qualifiers: Laterality: right Lung location: lower lobe of lung Is this a current diagnosis for this admission?: No (4) Gastritis with hemorrhage Qualifiers: Gastritis type: alcoholic Chronicity: acute Qualified Code(s): K29.21 - Alcoholic gastritis with bleeding Is this a current diagnosis for this admission?: Yes (5) Narcotic overdose Qualifiers: Encounter type: initial encounter Injury intent: undetermined intent Qualified Code(s): T40.604A - Poisoning by unspecified narcotics, undetermined, initial encounter Is this a current diagnosis for this admission?: No (6) Hypophosphatemia Is this a current diagnosis for this admission?: No (7) Hypocalcemia Is this a current diagnosis for this admission?: No - Time Critical Time spent with patient: 25-34 minutes
[2017-01-06] MEDS: CALCIUM CARBONATE 500 MG TAB.CHEW PO SCH ×4 (10:24→21:23)
[2017-01-06] MEDS: CARVEDILOL 6.25 MG TABLET PO SCH ×2 (10:45→21:25)
[2017-01-06] MEDS: LACTOBACILLUS ACIDOPHILUS 250 MG TAB PO SCH ×2 (10:46→18:41)
[2017-01-06] MEDS: LISINOPRIL 5 MG TABLET PO SCH (10:46)
[2017-01-06] MEDS: DOXYCYCLINE HYCLATE 100 MG TABLET PO SCH ×2 (10:46→21:25)
[2017-01-06] MEDS: THIAMINE HCL 100 MG TABLET PO SCH (10:46)
[2017-01-06] MEDS: OXCARBAZEPINE 150 MG TABLET PO SCH ×2 (10:47→23:25)
[2017-01-06] MEDS: SERTRALINE HCL 50 MG TABLET PO SCH (10:47)
--- NOTE | 2017-01-06 13:13 | PDOC PROGRESS REPORT ---
Subjective Progress Note for:: 01/06/17 Subjective:: Patient's mental status is back to normal. He has had no further agitation or hallucinations. He has been afebrile. He was noted to be hypotensive overnight and required a fluid bolus. He has been normotensive this morning. Blood pressure medicines were held. Physical Exam Vital Signs: Temp Pulse Resp BP Pulse Ox 97.7 F 72 24 H 115/67 97 01/06/17 12:58 01/06/17 07:27 01/06/17 12:58 01/06/17 12:58 01/06/17 12:00 Intake & Output 01/05/17 01/06/17 01/07/17 06:59 06:59 06:59 Intake Total 61 1245 Output Total 1815 950 Balance -1754 295 Weight 75.1 kg GENERAL: No acute distress HEENT: Conjunctiva clear, nonicteric, moist mucous membranes, no JVD, midline trachea RESPIRATORY: Clear to auscultation bilaterally, no wheezes, no rhonchi CARDIAC: Regular rate and rhythm, no murmurs/gallops/rubs ABDOMEN: Soft, nondistended, nontender, positive bowel sounds, no rebound, no guarding EXTREMETIES: No edema, cyanosis, clubbing NEUROLOGIC: Alert, oriented to person/place/time, CN's grossly intact, no focal deficits SKIN: No rash, wounds PSYCH: Normal mood, normal affect Results Laboratory Results: 01/06/17 05:30 01/06/17 05:30 01/06/17 01/06/17 05:30 05:30 WBC 6.7 RBC 4.94 Hgb 14.0 Hct 42.4 MCV 86 MCH 28.3 MCHC 33.0 RDW 16.2 H Plt Count 222 Seg Neutrophils % Not Reportable Lymphocytes % Not Reportable Monocytes % Not Reportable Eosinophils % Not Reportable Basophils % Not Reportable Absolute Neutrophils Not Reportable Absolute Lymphocytes Not Reportable Absolute Monocytes Not Reportable Absolute Eosinophils Not Reportable Absolute Basophils Not Reportable Sodium 140.8 Potassium 4.0 Chloride 107 Carbon Dioxide 22 Anion Gap 12 BUN 29 H Creatinine 0.90 Est GFR ( Amer) > 60 Est GFR (Non-Af Amer) > 60 Glucose 95 Calcium 9.0 Total Bilirubin 0.8 AST 32 ALT 40 Alkaline Phosphatase 66 Total Protein 5.9 L Albumin 3.2 L Triglycerides 321 H 01/04/17 08:25 Catheterized Urine Urine Culture - Final NO GROWTH 2 DAYS 12/30/16 12/30/16 12/30/16 06:48 06:48 08:24 Creatine Kinase 449 H CK-MB (CK-2) Cancelled 4.09 Troponin I Cancelled < 0.012 12/30/16 12/30/16 12/30/16 08:24 14:50 14:50 Creatine Kinase 470 H 411 H CK-MB (CK-2) 3.39 Troponin I 0.014 12/30/16 12/30/16 21:00 21:00 Creatine Kinase 405 H CK-MB (CK-2) 3.39 Troponin I < 0.012 Impressions: KUB X-Ray 01/01/17 00:00 IMPRESSION: NG tube appears to be adequate position. Chest X-Ray 01/04/17 07:49 IMPRESSION: NO ACUTE RADIOGRAPHIC FINDING IN THE CHEST. Assessment & Plan - Diagnosis (1) Acute respiratory failure with hypoxia Is this a current diagnosis for this admission?: YesPlan: Stable post extubation. Wean off oxygen as tolerated. (2) Aspiration pneumonia Qualifiers: Laterality: right Lung location: lower lobe of lung Is this a current diagnosis for this admission?: YesPlan: Doxycycline. Sputum culture growing methicillin sensitive staph aureus sensitive to doxycycline. (3) Acute systolic (congestive) heart failure Is this a current diagnosis for this admission?: YesPlan: Patient was given 1 dose of IV Lasix on 01/01/2017. Echocardiogram showed EF 40% . 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 Decreased Coreg to 6.25 mg twice daily. Decrease lisinopril to 5 mg daily. (4) Sepsis Is this a current diagnosis for this admission?: YesPlan: Patient is now afebrile. Chest x-ray is negative. Urinalysis is negative. (5) Alcohol abuse Is this a current diagnosis for this admission?: YesPlan: Patient now passed acute DTs. (6) Gastritis with hemorrhage Qualifiers: Gastritis type: alcoholic Chronicity: acute Qualified Code(s): K29.21 - Alcoholic gastritis with bleeding Is this a current diagnosis for this admission?: YesPlan: Continue Prevacid. EGD showed esophagitis. (7) Narcotic overdose Qualifiers: Encounter type: initial encounter Injury intent: undetermined intent Qualified Code(s): T40.604A - Poisoning by unspecified narcotics, undetermined, initial encounter Is this a current diagnosis for this admission?: YesPlan: Psychology to evaluate. Continue involuntary commitment. (8) Hypocalcemia Is this a current diagnosis for this admission?: YesPlan: Resolved. (9) Thrombocytopenia Is this a current diagnosis for this admission?: YesPlan: Resolved. (10) Malnutrition Is this a current diagnosis for this admission?: Yes (11) C. difficile colitis Is this a current diagnosis for this admission?: YesPlan: Patient failed oral Flagyl. Continue oral vancomycin. (12) Hypokalemia Is this a current diagnosis for this admission?: YesPlan: Resolved. (13) Hx of traumatic brain injury Is this a current diagnosis for this admission?: Yes - Time Time Spent with patient: 35 or more minutes
--- NOTE | 2017-01-06 16:37 | PSYCHOLOGICAL NOTE ---
Psych Note - Psych Note Psych Note: Patient was arrived to [facility] ED unresponsive. Patient has a history of alcohol abuse, opiod abuse, PTSD, anxiety, and depression. As noted by attending physician: Patient was discovered by his friends unresponsive and not breathing for an unclear duration CPR was initiated and EMS was called. At the scene he was spontaneous breathing and pulse though suspected to have overdosed on a narcotic receiving Narcan 2 mg intranasally with improvement of mental status. During transport he had a reduction in his respiratory rate to 6 and received another dose of Narcan IV. Emergency room is found to have a pulse oximetry of 77% on room air at which time he began to vomit aspiration followed by acute respiratory failure he was intubated. Patient states he does not want to and he has been sober for "28 days." Patient states he is upset because his dad does not believe he has been sober. Clinician explained the patient was found unresponsive with alcohol and opoids, the patient became angry and stated "I don't do drugs and I have not drank since I have been here." Patient was reminded he has been in [facility] for 5 days not 28. Patient refused to believe clinician. Patient stated he promised his father to not drink anymore. Patient states he would like information of sobriety. Patient's chart included discharge paperwork for the patient identified for the end of November from [facility]. Discharge paperwork identified patient has history of substance abuse to include alcohol and opiod. Patient is alert and orientated to person and place. Patient's orientation to time and circumstance appears to be currently affect. This could possibly stem from lack of oxygen to the brain prior to arrive of first responders. It is unclear at this time the source of his lack of complete orientation. Mood is euthymic with congruent affect however it is noted the patient demonstrated some labile emotion with discussing substance abuse. Patient denies suicidal and homicidal ideation. Patient denies auditory and visual hallucinations; patient is not demonstrating behaviours congruent with responding to internal stimuli. No delusions are noted. Thought process is organized and linear; however, thought content appears to me missing or merging time (ie his treatment at [facility]). Eye contact was well maintained. Intellectual abilities appear to be within average range. Attention and concentration are fair. Insight, judgment and impulse control is poor. Polysubstance abuse (alcohol and opiods) per history unspecified anxiety per history unspecified depression per history Posttraumatic stress disorder per history. Impression/Plan: Patient is psychiatrically cleared for discharge. Patient denies suicidal ideation. Patient has a long history of substance abuse with unsuccessful inpatient treatment. Patient does demonstrate difficulties with orientation of time and complete circumstance behind arrival to [facility]. It is unclear at this time the source of his lack of complete orientation; however, this does not put the patient in imminent danger to self or others. Patient does not meet IVC criteria per [place] GS 122C. Patient is recommended for substance abuse treatment. Dr. Caldwell was consulted on the care and managment of this patient.
[2017-01-06] MEDS: LORAZEPAM INJ 2 MG/1 ML VIAL IV PRN ×2 (18:45→21:34)
[2017-01-06] MEDS: MIRTAZAPINE 15 MG TABLET PO SCH (21:23)
[2017-01-07] MEDS: LORAZEPAM INJ 2 MG/1 ML VIAL IV PRN ×3 (00:14→06:01)
[2017-01-07] MEDS ORDERED: LORAZEPAM INJ 2 MG/1 ML VIAL IV PRN (01:10)
[2017-01-07 05:02] LABS: HEMATOCRIT 42.5 % (37.9-51.0); HEMOGLOBIN 14.4 g/dL (13.5-17.0); HGB HCT DIFFERENCE 0.7; MEAN CORPUSCULAR HEMOGLOBIN 28.9 pg (27.0-33.4); MEAN CORPUSCULAR VOLUME 85 fl (80-97); RED BLOOD COUNT 5.01 10^6/uL (4.35-5.55); WHITE BLOOD COUNT 6.9 10^3/uL (4.0-10.5)
[2017-01-07] MEDS: QUETIAPINE FUMARATE 100 MG TABLET PO SCH ×4 (05:07→21:13)
[2017-01-07] MEDS: LANSOPRAZOLE 30 MG TAB.RAP.DR PO SCH ×2 (05:07→17:13)
[2017-01-07] MEDS: SUCRALFATE SUSP 1 GM/10 ML UDCUP PO SCH ×4 (05:07→23:46)
[2017-01-07] MEDS: VANCOMYCIN HCL INJ 500 MG VIAL PO SCH ×4 (05:08→23:46)
[2017-01-07 05:17] LABS: ANION GAP 12 (5-19); BLOOD UREA NITROGEN 17 mg/dL (7-20); CALCIUM 8.5 mg/dL (8.4-10.2); CARBON DIOXIDE 24 mmol/L (22-30); CHLORIDE 104 mmol/L (98-107); CREATININE RESULT 0.71 mg/dL (0.52-1.25); GLUCOSE 124 mg/dL (75-110); POTASSIUM 3.9 mmol/L (3.6-5.0); SODIUM 139.7 mmol/L (137-145)
[2017-01-07 05:26] LABS: BAND NEUTROPHILS % (MANUAL) 5 % (3-5); BASOPHILS % (MANUAL) 0 % (0-2); EOSINOPHILS % (MANUAL) 0 % (0-6); LYMPHOCYTES % (MANUAL) 18 % (13-45); TOTAL CELLS COUNTED 100
[2017-01-07 05:30] LABS: ANISOCYTOSIS 1+; OVALOCYTES SLIGHT; POIKILOCYTOSIS SLIGHT; ROULEAUX SLIGHT; TOXIC GRANULATION 1+
[2017-01-07] MEDS: CALCIUM CARBONATE 500 MG TAB.CHEW PO SCH ×4 (08:49→21:14)
[2017-01-07] MEDS: CHLORPROMAZINE HCL INJ 25 MG/1 ML AMPULE IV PRN ×3 (08:49→23:47)
[2017-01-07] MEDS: LACTOBACILLUS ACIDOPHILUS 250 MG TAB PO SCH ×2 (09:00→17:13)
[2017-01-07] MEDS: SERTRALINE HCL 50 MG TABLET PO SCH (09:01)
[2017-01-07] MEDS: DOXYCYCLINE HYCLATE 100 MG TABLET PO SCH ×2 (09:01→21:13)
[2017-01-07] MEDS: THIAMINE HCL 100 MG TABLET PO SCH (09:02)
[2017-01-07] MEDS: CARVEDILOL 6.25 MG TABLET PO SCH ×2 (09:03→21:13)
[2017-01-07] MEDS: LISINOPRIL 5 MG TABLET PO SCH (09:03)
[2017-01-07] MEDS ORDERED: THIAMINE HCL 100 MG TABLET PO SCH (10:00)
[2017-01-07] MEDS: OXCARBAZEPINE 150 MG TABLET PO SCH ×2 (11:15→23:46)
--- NOTE | 2017-01-07 17:48 | PDOC PROGRESS REPORT ---
Subjective Progress Note for:: 01/07/17 Subjective:: I am agitated overnight and was given large dose of Ativan. Patient continued to remain agitated this morning and did receive a dose of Thorazine with improvement of his overall attitude. Unable to obtain review of systems from patient due to his lethargic status, patient does rouse enough to answer orientation questions but quickly falls back to sleep. Nurse present at the time of my examination. Physical Exam Vital Signs: Temp Pulse Resp BP Pulse Ox 98.2 F 95 16 116/62 94 01/07/17 04:00 01/07/17 04:00 01/07/17 04:00 01/07/17 04:00 01/07/17 04:00 Intake & Output 01/06/17 01/07/17 01/08/17 06:59 06:59 06:59 Intake Total 1245 Output Total 950 1100 Balance 295 -1100 Weight 75.1 kg 74.1 kg Exam: GENERAL: No acute distress HEENT: Conjunctiva clear, nonicteric, moist mucous membranes, no JVD, midline trachea RESPIRATORY: Clear to auscultation bilaterally, no wheezes, no rhonchi CARDIAC: Regular rate and rhythm, no murmurs/gallops/rubs ABDOMEN: Soft, nondistended, nontender, positive bowel sounds, no rebound, no guarding EXTREMETIES: No edema, cyanosis, clubbing NEUROLOGIC: lethargic, oriented to person/place/time, CN's grossly intact, no focal deficits SKIN: No rash, wounds PSYCH: lethargic Results Laboratory Results: 01/07/17 04:50 01/07/17 04:50 01/07/17 01/07/17 04:50 04:50 WBC 6.9 RBC 5.01 Hgb 14.4 Hct 42.5 MCV 85 MCH 28.9 MCHC 34.0 RDW 16.0 H Plt Count 253 Seg Neutrophils % Not Reportable Lymphocytes % Not Reportable Monocytes % Not Reportable Eosinophils % Not Reportable Basophils % Not Reportable Absolute Neutrophils Not Reportable Absolute Lymphocytes Not Reportable Absolute Monocytes Not Reportable Absolute Eosinophils Not Reportable Absolute Basophils Not Reportable Sodium 139.7 Potassium 3.9 Chloride 104 Carbon Dioxide 24 Anion Gap 12 BUN 17 Creatinine 0.71 Est GFR ( Amer) > 60 Est GFR (Non-Af Amer) > 60 Glucose 124 H Calcium 8.5 01/04/17 08:25 Catheterized Urine Urine Culture - Final NO GROWTH 2 DAYS 12/30/16 12/30/16 12/30/16 06:48 06:48 08:24 Creatine Kinase 449 H CK-MB (CK-2) Cancelled 4.09 Troponin I Cancelled < 0.012 12/30/16 12/30/16 12/30/16 08:24 14:50 14:50 Creatine Kinase 470 H 411 H CK-MB (CK-2) 3.39 Troponin I 0.014 12/30/16 12/30/16 21:00 21:00 Creatine Kinase 405 H CK-MB (CK-2) 3.39 Troponin I < 0.012 Impressions: KUB X-Ray 01/01/17 00:00 IMPRESSION: NG tube appears to be adequate position. Chest X-Ray 01/04/17 07:49 IMPRESSION: NO ACUTE RADIOGRAPHIC FINDING IN THE CHEST. Assessment & Plan - Diagnosis (1) Acute respiratory failure with hypoxia Is this a current diagnosis for this admission?: YesPlan: No longer requiring oxygen. (2) Aspiration pneumonia Qualifiers: Laterality: right Lung location: lower lobe of lung Is this a current diagnosis for this admission?: YesPlan: Patient with Staphylococcus aureus infection of the sputum. Currently on doxycycline. Continue scheduled nebulized treatments. (3) Narcotic overdose Qualifiers: Encounter type: initial encounter Injury intent: undetermined intent Qualified Code(s): T40.604A - Poisoning by unspecified narcotics, undetermined, initial encounter Is this a current diagnosis for this admission?: YesPlan: Patient has been seen by psychology and has been deemed to be not to himself although substance abuser. (4) Alcohol intoxication Qualifiers: Complication of substance-induced condition: with unspecified complication Qualified Code(s): F10.929 - Alcohol use, unspecified with intoxication , unspecified Is this a current diagnosis for this admission?: Yes (5) Alcohol abuse Is this a current diagnosis for this admission?: Yes (6) Gastritis with hemorrhage Qualifiers: Gastritis type: alcoholic Chronicity: acute Qualified Code(s): K29.21 - Alcoholic gastritis with bleeding Is this a current diagnosis for this admission?: YesPlan: continue PPI (7) Metabolic acidosis Is this a current diagnosis for this admission?: Yes (8) Acute systolic (congestive) heart failure Is this a current diagnosis for this admission?: YesPlan: Echocardiogram on 01/01/17: Revealed an EF of 40%, moderate global hypokinesis, moderate pulmonary hypertension Patient currently on lisinopril and metoprolol. Currently euvolemic. (9) C. difficile colitis Is this a current diagnosis for this admission?: YesPlan: Oral Vancocin - Time Time Spent with patient: 25-34 minutes Medications reviewed and adjusted accordingly: Yes Anticipated discharge: Home Within: within 48 hours
[2017-01-07] MEDS: MIRTAZAPINE 15 MG TABLET PO SCH (21:13)
[2017-01-08] MEDS: QUETIAPINE FUMARATE 100 MG TABLET PO SCH (05:49)
[2017-01-08] MEDS: LANSOPRAZOLE 30 MG TAB.RAP.DR PO SCH (05:50)
[2017-01-08] MEDS: SUCRALFATE SUSP 1 GM/10 ML UDCUP PO SCH (05:50)
[2017-01-08] MEDS: VANCOMYCIN HCL INJ 500 MG VIAL PO SCH (05:51)
[2017-01-08 08:10] VITALS: BP 131/91
--- NOTE | 2017-01-09 19:28 | PDOC DISCHARGE SUMMARY ---
General - Admit/Disc Date/PCP Admission Date/Primary Care Provider: 12/30/16 04:01 Discharge Date: 01/08/17 - Discharge Diagnosis (1) Left against medical advice Is this a current diagnosis for this admission?: Yes (2) Acute respiratory failure with hypoxia Is this a current diagnosis for this admission?: Yes (3) Aspiration pneumonia Is this a current diagnosis for this admission?: Yes (4) Narcotic overdose Is this a current diagnosis for this admission?: Yes (5) Alcohol intoxication Is this a current diagnosis for this admission?: Yes (6) Alcohol abuse Is this a current diagnosis for this admission?: Yes (7) Gastritis with hemorrhage Is this a current diagnosis for this admission?: Yes (8) Metabolic acidosis Is this a current diagnosis for this admission?: Yes (9) Acute systolic (congestive) heart failure Is this a current diagnosis for this admission?: Yes (10) C. difficile colitis Is this a current diagnosis for this admission?: Yes (11) Hx of traumatic brain injury Is this a current diagnosis for this admission?: Yes (12) Hypocalcemia Is this a current diagnosis for this admission?: Yes (13) Hypokalemia Is this a current diagnosis for this admission?: Yes (14) Malnutrition Is this a current diagnosis for this admission?: Yes (15) Sepsis Is this a current diagnosis for this admission?: Yes (16) Thrombocytopenia Is this a current diagnosis for this admission?: Yes - Additional Information Resuscitation Status: Full Code Home Medications: Acetaminophen/Diphenhydramine [Tylenol Pm Ex-Strength Caplet] 2 tab PO QHS 12/31 Ascorbic Acid [Vitamin C 500 mg Tablet] 1,000 mg PO DAILY 12/31/16 Lisinopril 20 mg PO DAILY 12/31/16 Metoprolol Tartrate [Lopressor 50 mg Tablet] 50 mg PO Q12 12/31/16 Mirtazapine [Remeron 15 mg Tablet] 15 mg PO QHS 12/31/16 Multivitamin [Daily Multiple Vitamin] 1 tab PO DAILY 12/31/16 Oxcarbazepine [Trileptal] 600 mg PO Q12 12/31/16 Quetiapine Fumarate [Seroquel 100 mg Tablet] 50 mg PO Q8 12/31/16 Quetiapine Fumarate [Seroquel] 300 mg PO QHS 12/31/16 Sertraline HCl [Zoloft] 100 mg PO DAILY 12/31/16 Testosterone Cypionate [Depo-Testosterone] 200 mg IM MO@1000 12/31/16 Thiamine HCl [Thiamine 100 mg Tablet] 100 mg PO DAILY 12/31/16 History of Present Illness History of Present Illness: CYRUS EPPERSON is a 36 year old malewhose history is obtained by the medical record and ER personnel the patient is intubated and nonresponsive. History includes PTSD, anxiety depression. Patient was discovered by his friends unresponsive and not breathing for an unclear duration CPR was initiated and EMS was called. At the scene he was spontaneous breathing and pulse though suspected to have overdosed on a narcotic receiving Narcan 2 mg intranasally with improvement of mental status. During transport he had a reduction in his respiratory rate to 6 and received another dose of Narcan IV. Emergency room is found to have a pulse oximetry of 77% on room air at which time he began to vomit aspiration followed by acute respiratory failure he was intubated. Lab results pending is referred to the hospitalist for ICU admission. There is no family or friends available for additional history. NG tube aspirate dark concerning for blood Hospital Course Hospital Course: Patient was initially placed in the ICU secondary to his overdose and subsequent aspiration pneumonia. For patient's Gastroccult positivity, on 12/30/16 he underwent upper endoscopy and was found to have severe erosive esophagitis. For Patient's aspiration pneumonia/ respiratory failure, continued to be ventilated and was found to have Staphylococcus aureus in his sputum. He improved and was able to be weaned. Patient was extubated on 01/03. Had thrombocytopenia and diarrhea which was found to be C. difficile positive. Patient was placed on Flagyl. Patient was given 1 dose of IV Lasix on 01/01/2017. Echocardiogram showed EF 40% . 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 Decreased Coreg to 6.25 mg twice daily. Decrease lisinopril to 5 mg daily. After extubation, patient continued to be quite agitated, though oriented. Did improve over 3 days. Psychology evaluated this patient and did not feel that he was a danger to himself though a substance abuser. IVC was rescinded. 01/08/2017 patient elected to leave AGAINST MEDICAL ADVICE. He was awake alert and oriented at the time. A prescription for Flagyl was given to this patient for his C. difficile colitis. He was advised not to drink alcohol with this medication. Prescriptions were given and a physical exam was not done Physical Exam Vital Signs: Temp Pulse Resp BP Pulse Ox 97.7 F 79 18 131/91 H 99 01/08/17 08:00 01/08/17 09:40 01/08/17 08:00 01/08/17 08:00 01/08/17 08:00 Intake & Output 01/08/17 01/09/17 01/10/17 06:59 06:59 06:59 Intake Total 300 Output Total 300 450 Balance 0 -450 Weight 74.3 kg Exam: not Preformed secondary to AMA Results Laboratory Results: 01/07/17 04:50 01/07/17 04:50 01/04/17 10:43 Blood Blood Culture - Final NO GROWTH IN 5 DAYS 01/04/17 08:25 Blood Blood Culture - Final NO GROWTH IN 5 DAYS 12/30/16 12/30/16 12/30/16 06:48 06:48 08:24 Creatine Kinase 449 H CK-MB (CK-2) Cancelled 4.09 Troponin I Cancelled < 0.012 12/30/16 12/30/16 12/30/16 08:24 14:50 14:50 Creatine Kinase 470 H 411 H CK-MB (CK-2) 3.39 Troponin I 0.014 12/30/16 12/30/16 21:00 21:00 Creatine Kinase 405 H CK-MB (CK-2) 3.39 Troponin I < 0.012 Impressions: KUB X-Ray 01/01/17 00:00 IMPRESSION: NG tube appears to be adequate position. Chest X-Ray 01/04/17 07:49 IMPRESSION: NO ACUTE RADIOGRAPHIC FINDING IN THE CHEST. Qualifiers PATEINT BEING DISCHARGED WITH ANY OF THE FOLLOWING DIAGNOSIS?: Heart Failure HF Pt being discharged on ACEI for LVEF less than 40%?: No Reason(s) for not prescribing ACEI:: Drug declined by patient HF Pt being discharged on ARBS for LVEF less than 40%?: No Reason(s) for not prescribing ARBS:: Drug declined by patient HF Pt with Afib discharged with Warfarin?: No Reason(s) for not prescribing Warfarin:: Drug declined by patient, Not indicated HF Pt discharged on evidence-based Beta Osto:: No Reason(s) for not prescribing evidence-based Beta Soto:: Drug declined by patient Plan Time Spent: Less than 30 Minutes
--- NOTE | 2017-01-13 12:40 | PDOC PROGRESS REPORT ---
Subjective Progress Note for:: 01/07/17 Subjective:: highly agitated Physical Exam Vital Signs: Temp Pulse Resp BP Pulse Ox 98.5 F 104 H 20 94/79 L 99 01/07/17 07:59 01/07/17 07:59 01/07/17 07:59 01/07/17 07:59 01/07/17 07:59 Intake & Output 01/06/17 01/07/17 01/08/17 06:59 06:59 06:59 Intake Total 1245 Output Total 950 1100 Balance 295 -1100 Weight 75.1 kg 74.1 kg General appearance: PRESENT: disheveled, mild distress, well-developed, well- nourished Head exam: PRESENT: atraumatic, normocephalic Eye exam: PRESENT: conjunctiva pale, EOMI Mouth exam: PRESENT: dry mucosa, neck supple Neck exam: ABSENT: carotid bruit, JVD, lymphadenopathy, thyromegaly Respiratory exam: PRESENT: decreased breath sounds, rhonchi, symmetrical Cardiovascular exam: PRESENT: RRR, +S1, +S2 Pulses: PRESENT: normal radial pulses GI/Abdominal exam: PRESENT: ascites Rectal exam: PRESENT: deferred Musculoskeletal exam: PRESENT: normal inspection Neurological exam: PRESENT: awake Psychiatric exam: PRESENT: manic Focused psych exam: PRESENT: delusional, paranoid, psychomotor agitation Skin exam: PRESENT: dry, warm Results Laboratory Results: 01/07/17 04:50 01/07/17 04:50 01/07/17 01/07/17 04:50 04:50 WBC 6.9 RBC 5.01 Hgb 14.4 Hct 42.5 MCV 85 MCH 28.9 MCHC 34.0 RDW 16.0 H Plt Count 253 Seg Neutrophils % Not Reportable Lymphocytes % Not Reportable Monocytes % Not Reportable Eosinophils % Not Reportable Basophils % Not Reportable Absolute Neutrophils Not Reportable Absolute Lymphocytes Not Reportable Absolute Monocytes Not Reportable Absolute Eosinophils Not Reportable Absolute Basophils Not Reportable Sodium 139.7 Potassium 3.9 Chloride 104 Carbon Dioxide 24 Anion Gap 12 BUN 17 Creatinine 0.71 Est GFR ( Amer) > 60 Est GFR (Non-Af Amer) > 60 Glucose 124 H Calcium 8.5 01/04/17 08:25 Catheterized Urine Urine Culture - Final NO GROWTH 2 DAYS 12/30/16 12/30/16 12/30/16 06:48 06:48 08:24 Creatine Kinase 449 H CK-MB (CK-2) Cancelled 4.09 Troponin I Cancelled < 0.012 12/30/16 12/30/16 12/30/16 08:24 14:50 14:50 Creatine Kinase 470 H 411 H CK-MB (CK-2) 3.39 Troponin I 0.014 12/30/16 12/30/16 21:00 21:00 Creatine Kinase 405 H CK-MB (CK-2) 3.39 Troponin I < 0.012 Impressions: KUB X-Ray 01/01/17 00:00 IMPRESSION: NG tube appears to be adequate position. Chest X-Ray 01/04/17 07:49 IMPRESSION: NO ACUTE RADIOGRAPHIC FINDING IN THE CHEST. Assessment & Plan - Diagnosis (1) Acute respiratory failure with hypoxia Is this a current diagnosis for this admission?: No (2) Alcohol abuse Is this a current diagnosis for this admission?: Yes (3) Aspiration pneumonia Qualifiers: Laterality: right Lung location: lower lobe of lung Is this a current diagnosis for this admission?: Yes (4) Gastritis with hemorrhage Qualifiers: Gastritis type: alcoholic Chronicity: acute Qualified Code(s): K29.21 - Alcoholic gastritis with bleeding Is this a current diagnosis for this admission?: Yes (5) Narcotic overdose Qualifiers: Encounter type: initial encounter Injury intent: undetermined intent Qualified Code(s): T40.604A - Poisoning by unspecified narcotics, undetermined, initial encounter Is this a current diagnosis for this admission?: Yes (6) Hypophosphatemia Is this a current diagnosis for this admission?: No (7) Hypocalcemia Is this a current diagnosis for this admission?: No
--- NOTE | 2017-01-13 12:42 | PDOC PROGRESS REPORT ---
Subjective Progress Note for:: 01/08/17 Subjective:: leaving AMA Physical Exam Vital Signs: Temp Pulse Resp BP Pulse Ox 97.7 F 86 18 131/91 H 99 01/08/17 08:00 01/08/17 08:00 01/08/17 08:00 01/08/17 08:00 01/08/17 08:00 Intake & Output 01/07/17 01/08/17 01/09/17 06:59 06:59 06:59 Intake Total 300 Output Total 1100 300 450 Balance -1100 0 -450 Weight 74.1 kg 74.3 kg General appearance: PRESENT: no acute distress, disheveled, well-developed, well -nourished Head exam: PRESENT: atraumatic, normocephalic Eye exam: PRESENT: conjunctiva pale, EOMI Mouth exam: PRESENT: dry mucosa, neck supple Neck exam: ABSENT: carotid bruit, JVD, lymphadenopathy, thyromegaly Respiratory exam: PRESENT: decreased breath sounds, prolonged expiratory phas, unlabored Cardiovascular exam: PRESENT: RRR, +S1, +S2 Pulses: PRESENT: normal dorsalis pedis pul GI/Abdominal exam: PRESENT: normal bowel sounds, soft. ABSENT: distended, guarding, mass, organolmegaly, rebound, tenderness Rectal exam: PRESENT: deferred Musculoskeletal exam: PRESENT: normal inspection Neurological exam: PRESENT: awake Psychiatric exam: PRESENT: agitated Focused psych exam: PRESENT: delusional, pressured speech, psychomotor agitation Skin exam: PRESENT: dry, warm Results Laboratory Results: 01/07/17 04:50 01/07/17 04:50 12/30/16 12/30/16 12/30/16 06:48 06:48 08:24 Creatine Kinase 449 H CK-MB (CK-2) Cancelled 4.09 Troponin I Cancelled < 0.012 12/30/16 12/30/16 12/30/16 08:24 14:50 14:50 Creatine Kinase 470 H 411 H CK-MB (CK-2) 3.39 Troponin I 0.014 12/30/16 12/30/16 21:00 21:00 Creatine Kinase 405 H CK-MB (CK-2) 3.39 Troponin I < 0.012 Impressions: KUB X-Ray 01/01/17 00:00 IMPRESSION: NG tube appears to be adequate position. Chest X-Ray 01/04/17 07:49 IMPRESSION: NO ACUTE RADIOGRAPHIC FINDING IN THE CHEST. Assessment & Plan - Diagnosis (1) Acute respiratory failure with hypoxia Is this a current diagnosis for this admission?: No (2) Alcohol abuse Is this a current diagnosis for this admission?: Yes (3) Aspiration pneumonia Qualifiers: Laterality: right Lung location: lower lobe of lung Is this a current diagnosis for this admission?: Yes (4) Gastritis with hemorrhage Qualifiers: Gastritis type: alcoholic Chronicity: acute Qualified Code(s): K29.21 - Alcoholic gastritis with bleeding Is this a current diagnosis for this admission?: Yes (5) Narcotic overdose Qualifiers: Encounter type: initial encounter Injury intent: undetermined intent Qualified Code(s): T40.604A - Poisoning by unspecified narcotics, undetermined, initial encounter Is this a current diagnosis for this admission?: Yes (6) Hypophosphatemia Is this a current diagnosis for this admission?: No (7) Hypocalcemia Is this a current diagnosis for this admission?: No
== END 2017-01-08 09:25 | disposition left against medical advice (07) | DRG 917 ==
LOC: ER 02:41 → EH 04:01 → ICU 06:33
PROVIDERS: ADMIT Internal Medicine; ATTEND Internal Medicine
PROC: 0BH17EZ Insertion of Endotracheal Airway into Trachea, Via Natural or Artificial Opening (ICD-10-PCS; 2016-12-30)
PROC: 0DB28ZX Excision of Middle Esophagus, Via Natural or Artificial Opening Endoscopic, Diagnostic (ICD-10-PCS; 2016-12-30)
PROC: 0DB68ZX Excision of Stomach, Via Natural or Artificial Opening Endoscopic, Diagnostic (ICD-10-PCS; 2016-12-30)
PROC: 02H633Z Insertion of Infusion Device into Right Atrium, Percutaneous Approach (ICD-10-PCS; 2016-12-30)
PROC: 3E0F73Z Introduction of Anti-inflammatory into Respiratory Tract, Via Natural or Artificial Opening (ICD-10-PCS; 2016-12-30)
PROC: 5A1955Z Respiratory Ventilation, Greater than 96 Consecutive Hours (ICD-10-PCS; principal; 2016-12-30 13:00)
DX: T40.604A Poisoning by unspecified narcotics, undetermined, initial encounter (principal); J96.01 Acute respiratory failure with hypoxia; J69.0 Pneumonitis due to inhalation of food and vomit; K29.21 Alcoholic gastritis with bleeding; I50.21 Acute systolic (congestive) heart failure; A41.9 Sepsis, unspecified organism; E87.2 Acidosis; A04.7 Enterocolitis due to Clostridium difficile; E46 Unspecified protein-calorie malnutrition; I42.6 Alcoholic cardiomyopathy; K22.10 Ulcer of esophagus without bleeding; Y90.8 Blood alcohol level of 240 mg/100 ml or more; I11.0 Hypertensive heart disease with heart failure; E83.51 Hypocalcemia; E87.6 Hypokalemia; Z68.26 Body mass index [BMI] 26.0-26.9, adult; F43.10 Post-traumatic stress disorder, unspecified; B95.8 Unspecified staphylococcus as the cause of diseases classified elsewhere; F32.9 Major depressive disorder, single episode, unspecified; F41.1 Generalized anxiety disorder; F17.210 Nicotine dependence, cigarettes, uncomplicated; F10.229 Alcohol dependence with intoxication, unspecified; D69.59 Other secondary thrombocytopenia; E83.39 Other disorders of phosphorus metabolism; I27.2 Other secondary pulmonary hypertension; Z87.820 Personal history of traumatic brain injury; Z78.1 Physical restraint status; Z79.899 Other long term (current) drug therapy
CPT/HCPCS: 36415; 36600; 43239; 51702; 71010; 74000; 80048; 80053; 80074; 80307; 81001; 82040; 82271; 82533; 82550; 82553; 82803; 82962; 83605; 83690; 83735; 83880; 84100; 84478; 84484; 85025; 85027; 85610; 86022; 86850; 86900; 86901; 87040; 87070; 87077; 87086; 87186; 87205; 87493; 88305; 88312; 88342; 93005; 93010; 93306; 94002; 94003; 94640; 94667; 94668; 94799; 99291; C1751; J0171; J0610; J0692; J1610; J1940; J2060; J2250; J2310; J2354; J2405; J2543; J2704; J2997; J3010; J3230; J3370; J3411; J3475; J3480; J3490; J7030; J7040; J7060; J7620; P9047; S0164

== ENCOUNTER 2020-02-08 13:41 | Emergency (ER) | payer OTHER, MEDICARE ==
[2020-02-08] MEDS ORDERED: KETOROLAC TROMETHAMINE 60 MG/2 ML SDV IM ONE (14:06)
--- NOTE | 2020-02-08 14:08 | ER Document Report ---
HPI - HPI Time Seen by Provider: 02/08/20 14:06 Notes: 39-year-old male presents to the emergency room with complaints of lower back pain that started approximately 5 days ago after he was lifting up a couch and states he felt like he pulled a muscle. Reports pain radiates down both of his legs right greater than left. Has tried loag-[id number]-wzsiwps Tylenol and ibuprofen without relief. Denies any issues with bowel movements or urination. Patient has not tried any heat or icing. Worse with time, nothing makes better. Reports pain is 4 out of 5, throbbing achy, worse when he is trying to get in or out of a seated position. Denies fevers, chills, chest pain,palpitations, shortness of breath, dyspnea, nausea, vomiting, diarrhea, abdominal pain, hematuria,blurred vision, double vision, loss of vision, speech changes, LH, dizziness, syncope, headaches, wheezing, ST, URI, neck pain, weakness, bowel or bladder dysfunction, saddle anesthesia, numbness or tingling in bilateral upper or lower extremities equally, muscle paralysis, weakness in bilateral upper or lower extremities equally or rash. Denies IV drug use. MEDICATIONS: I agree with the patient medications as charted by the RN. ALLERGIES: I agree with the allergies as charted by the RN. PAST MEDICAL HISTORY/PAST SURGICAL HISTORY: Reviewed and agree as charted by RN. SOCIAL HISTORY: Reviewed and agree as charted by RN. FAMILY HISTORY: No significant familial comorbid conditions directly related to patient complaint EXAM: Reviewed vital signs as charted by RN. REVIEW OF SYSTEMS:reviewed vital signs by RN CONSTITUTIONAL : Denies fever, chills, or sweats. Denies recent illness. EENT: Denies eye, ear, throat, or mouth pain or symptoms. Denies nasal or sinus congestion or discharge. Denies throat, tongue, or mouth swelling or difficulty swallowing. CARDIOVASCULAR: Denies chest pain. Denies palpitations or racing or irregular heart beat. Denies ankle edema. RESPIRATORY: Denies cough, cold, or chest congestion. Denies shortness of breath, difficulty breathing, or wheezing. GASTROINTESTINAL: Denies abdominal pain or distention. Denies nausea, vomiting, or diarrhea. Denies blood in vomitus, stools, or per rectum. Denies black, tarry stools. Denies constipation. GENITOURINARY: Denies difficulty urinating, painful urination, burning, frequency, blood in urine, or discharge. MUSCULOSKELETAL: Reports back pain. denies neck pain or stiffness. Denies joint pain or swelling. SKIN: Denies rash, lesions or sores. HEMATOLOGIC : Denies easy bruising or bleeding. LYMPHATIC: Denies swollen, enlarged glands. NEUROLOGICAL: Denies confusion or altered mental status. Denies passing out or loss of consciousness. Denies dizziness or lightheadedness. Denies headache. Denies weakness or paralysis or loss of use of either side. Denies problems with gait or speech. Denies sensory loss, numbness, or tingling. Denies seizures. PSYCHIATRIC: Denies anxiety or stress. Denies depression, suicidal ideation, or homicidal ideation. ALL OTHER SYSTEMS REVIEWED AND NEGATIVE. Dictation was performed using [employer] recognition software PHYSICAL EXAMINATION: GENERAL: Well-appearing, well-nourished and in no acute distress. HEAD: Atraumatic, normocephalic. EYES: Pupils equal round and reactive to light, extraocular movements intact, sclera anicteric, conjunctiva are normal. ENT: Nares patent, oropharynx clear without exudates. Moist mucous membranes. NECK: Normal range of motion, supple without lymphadenopathy LUNGS: Breath sounds clear to auscultation bilaterally and equal. No wheezes rales or rhonchi. HEART: Regular rate and rhythm without murmurs ABDOMEN: Soft, nontender, nondistended abdomen. No guarding, no rebound. No masses appreciated. Musculoskeletal: Normal range of motion, no pitting or edema. No cyanosis. Pain with flexion and extension at 30 degrees, positive straight leg test on left. Normal hip rotation. DTR +2 in BLE equally. Strength 5 out of 5 both distally and proximally to bilateral lower extremities normal motor and sensory function in BLE equally. Distal pulses + 2 BLE equally. Noted paraspinal tenderness near L2 and L3. Strength 5 out of 5 in bilateral lower extremities equally. no spinal tenderness. No CVA tenderness bilaterally. Femoral pulses + 2 bilaterally and equally. No abrasions, scars, lacerations, ecchymosis of any recent trauma. normal gait. NEUROLOGICAL: Cranial nerves grossly intact. Normal speech, normal gait. Normal sensory, motor exams PSYCH: Normal mood, normal affect. SKIN: Warm, Dry, normal turgor, no rashes or lesions noted. - REPRODUCTIVE Reproductive: DENIES: : Past Medical History - General Information source: Patient - Social History Smoking Status: Unknown if Ever Smoked Family History: Reviewed & Not Pertinent, Other - Obtainable Neurological Medical History: Denies: Hx Seizures Psychiatric Medical History: Reports: Hx Depression, Hx Post Traumatic Stress Disorder Vertical Provider Document - CONSTITUTIONAL Agree With Documented VS: Yes Exam Limitations: No Limitations General Appearance: WD/WN - INFECTION CONTROL TRAVEL OUTSIDE OF THE [place] IN LAST 30 DAYS: No Course - Re-evaluation Re-evalutation: 02/08/20 16:00 Afebrile vital stable no distress. Nurses notes reviewed. X-ray of lumbar spine does show some mild disc space loss of his spine, urinalysis does show mild proteinuria, no hematuria no other x-rays no nitrates. Patient states that his pain does feel better after the Toradol injection. Discussed with patient that his mechanism of injury lifting a couch is likely the cause of his pain and he does need to follow-up with counterintelligence specialist as well as his primary care provider for further evaluation as x-rays are preliminary to any further imaging if deemed necessary. Advised to not drink, drive or operate machinery while taking muscle relaxer as this include sedation impairment of cognitive function. After performing a Medical Screening Examination, I estimate there is LOW risk for EXPANDING OR RUPTURED ABDOMINAL AORTIC ANEURYSM, CAUDA EQUINA SYNDROME, EPIDURAL MASS ABSCESS OR LESION(S), OSTEOMYELITIS,PERSONAL HISTORY OF CANCER, IMMUNOSUPPERSSSION, HISTORY OF IV DRUG USE, FRACTURE, CORD COMPERSSION, CANCER, RETROPERITONEAL BLEED, SPINAL EPIDURAL HEMATOMA, or HERNIATED DISK CAUSING SEVERE SPINAL STENOSIS, thus I consider the discharge disposition reasonable. I have reevaluated this patient multiple times and no significant life threatening changes are noted. The patient and I have discussed the diagnosis and risks, and we agree with discharging home and close follow-up. We also discussed returning to the Emergency Department immediately if new or worsening symptoms occur with the understanding that symptoms and presentations can change. We have discussed the symptoms which are most concerning (e.g., saddle anesthesia, urinary or bowel incontinence or retention, changing or worsening pain) that necessitate immediate return. 0 - Vital Signs Vital signs: Temp Pulse Resp BP Pulse Ox 98.2 F 95 15 130/91 H 100 02/08/20 13:49 02/08/20 13:49 02/08/20 13:49 02/08/20 13:49 02/08/20 13:49 Discharge - Discharge Clinical Impression: Lower back pain Condition: Stable Disposition: HOME, SELF-CARE Instructions: Muscle Strain ([facility]), Low Back Pain ([facility]), Warm Packs ([facility]), Muscle Relaxers ([facility]) Additional Instructions: Your x-ray today negative for any acute fracture dislocation. You do have some mild disc space loss between your bones. You have been seen in the Emergency Department (ED) today for back pain. Your workup and exam have not shown any acute abnormalities and you are likely suffering from muscle strain or possible problems with your discs, but there is no treatment that will fix your symptoms at this time. Please take the naproxen that has been prescribed as directed. Muscle relaxers as needed for pain control. Do not drive, drink or operate heavy machinery while taking medication because sedation or impairment of cognitive function you should also purchase a local lidocaine cream such as "aspercreme with lidocaine" and use per bottle instructions to the affected area. Apply heat to the area as often as you are able. Continue to keep active and avoid prolonged periods of bed rest. Please follow up with your doctor as soon as possible regarding today's ED visit and your back pain. Return to the ED for worsening back pain, fever, weakness or numbness of either leg, or if you develop either (1) an inability to urinate or have bowel movements, or (2) loss of your ability to control your bathroom functions (if you start having "accidents"), or if you develop other new symptoms that concern you.concern you. Return immediately for any new or worsening symptoms. Follow up with primary care provider, call tomorrow to make followup appointment. Prescriptions: Naproxen 500 mg PO BID #10 tablet Methocarbamol [Robaxin 500 mg Tablet] 500 mg PO QID PRN #15 tablet PRN Reason: Referrals: CANDELARIA ADAME MD [ACTIVE STAFF] - Follow up as needed RADHA CORDOVA DO [NO LOCAL MD] - Follow up as needed
[2020-02-08 14:57] LABS: APPEARANCE,URINE SLIGHTLY-CLOUDY; BILIRUBIN,URINE NEGATIVE (NEGATIVE); COLOR,URINE YELLOW; GLUCOSE, URINE NEGATIVE (NEGATIVE); KETONES,URINE NEGATIVE (NEGATIVE); LEUKOCYTE ESTERASE,URINE NEGATIVE (NEGATIVE); NITRITE,URINE NEGATIVE (NEGATIVE); PROTEIN,URINE 30 mg/dL (NEGATIVE); URINE SPECIFIC GRAVITY 1.032
--- NOTE | 2020-02-08 15:09 | RADIOLOGY REPORT (SQ) ---
EXAM DESCRIPTION: L SPINE WHOLE IMAGES COMPLETED DATE/TIME: 02/08/2020 2:54 pm REASON FOR STUDY: LBP after lifting a couch x 1w ago COMPARISON: None. NUMBER OF VIEWS: Five views including obliques. TECHNIQUE: AP, lateral, oblique, and sacral radiographic images acquired of the lumbar spine. LIMITATIONS: None. FINDINGS: MINERALIZATION: Normal. SEGMENTATION: Normal. No transitional anatomy. ALIGNMENT: Normal. VERTEBRAE: Maintained height. No fracture or worrisome bone lesion. DISCS: Mild disc space loss of height at L4-5 and L5-S1 POSTERIOR ELEMENTS: Pedicles and facets are intact. No pars defect or posterior arch defects. HARDWARE: None in the spine. PARASPINAL SOFT TISSUES: Normal. PELVIS: Sclerosis and bony spurring bilateral SI joint OTHER: No other significant finding. IMPRESSION: Mild disc space loss of height at L4-5 and L5-S1 TECHNICAL DOCUMENTATION: JOB ID: [id number] 2010 [employer]- All Rights Reserved Reading location - IP/workstation name: [id number]
[2020-02-08 16:38] VITALS: BP 151/93
== END 2020-02-08 16:46 | disposition home or self-care (01) ==
LOC: ER 13:41
DX: M54.5 Low back pain (principal); M79.604 Pain in right leg; M79.605 Pain in left leg; M54.9 Dorsalgia, unspecified; X50.0XXA Overexertion from strenuous movement or load, initial encounter
CPT/HCPCS: 99283; 96374; 81001; 72110; J1885